=== PATIENT | female | born 2000 | race African-American/Black ===

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

== ENCOUNTER 2019-04-10 11:08 | Emergency (ER) | payer OTHER ==
--- NOTE | 2019-04-10 12:23 | PDOC ---
History of Present Illness <José Luis Green - Last Filed: 04/10/19 17:33> - General History Source: Care Provider Exam Limitations: Other (Baseline MR) - History of Present Illness Initial Comments: 04/10/19 12:28 18 year old female with PMH developmental delay, hydrocephalus with FOLEY ARTIST shunt brought to ED by [facility] care providers for check of FOLEY ARTIST shunt after patient repeatedly hit her head on a toilet paper lopez. Pt has a history of aggressive and self-harming behavior. Care providers denied vomiting, denied LOC , stated that pt is at her baseline with no AMS. Pt is unable to provide history. <Vanessa Morris - Last Filed: 04/10/19 23:28> - General Stated Complaint: SELF INJURY,SHUNT REPLACEMENT Time Seen by Provider: 04/10/19 12:23 Past History <José Luis Green - Last Filed: 04/10/19 17:33> - Past Medical History COPD: No DVT: No Psychiatric Problems: Yes (ADHD, aggression) - Immunization History Immunization Up to Date: Yes - Suicide/Smoking/Psychosocial Hx Smoking History: Never smoked Have you smoked in the past 12 months: No Hx Alcohol Use: No Drug/Substance Use Hx: No Substance Use Type: None <Vanessa Morris - Last Filed: 04/10/19 23:28> - Past Medical History Allergies/Adverse Reactions: Allergies Allergy/AdvReac Type Severity Reaction Status Date / Time No Known Allergies Allergy Verified 10/08/18 05:05 Home Medications: Ambulatory Orders Acetaminophen 650 mg PO QID 08/19/18 Bisacodyl 20 mg PO ASDIR 08/19/18 Chlorpromazine [Thorazine -] 50 mg PO BID 08/19/18 Chlorpromazine [Thorazine -] 100 mg PO QID 08/19/18 Clozapine [Clozaril -] 50 mg PO DAILY 08/19/18 Haloperidol [Haldol -] 10 mg PO BID 08/19/18 Ibuprofen 200 mg PO ASDIR 08/19/18 Loperamide HCl [Imodium -] 2 mg PO Q8H 08/19/18 Wheat Dextrin [Benefiber] 1 each PO DAILY 08/19/18 Review of Systems - Review of Systems Able to Perform ROS?: No (Pt has baseline MR) <Vanessa Morris - Last Filed: 04/10/19 23:28> *Physical Exam - Vital Signs Last Vital Signs Temp Pulse Resp BP Pulse Ox 97 F L 114 H 16 144/106 H 100 04/10/19 12:29 04/10/19 15:40 04/10/19 15:40 04/10/19 15:40 04/10/19 15:40 <José Luis Green - Last Filed: 04/10/19 17:33> - Physical Exam Comments: 04/10/19 12:30 Constitutional: Well-nourished, Well-developed, appearing stated age. HEENT: head is normocephalic, atraumatic. EOMI. PERRLA. no scalp hematomas. no ashraf sign. no raccoon eyes. Neck: supple. Full ROM. Heart: regular rhythm. no murmurs, rubs or gallops. Lungs: clear to auscultation bilaterally. no crackles, rhonchi or wheezing. no stridor. Abdomen: soft, nontender. normal bowel sounds. no rebound, guarding, masses. Extremities: peripheral pulses intact. no lower extremity edema. Neurological: CN 2-12 grossly intact. moves all four extremities. Psych: awake, alert. follows commands. <Vanessa Morris - Last Filed: 04/10/19 23:28> ED Treatment Course - LABORATORY CBC & Chemistry Diagram: 04/10/19 13:40 04/10/19 13:40 - ADDITIONAL ORDERS Additional order review: Laboratory Results 04/10/19 04/10/19 04/10/19 13:40 13:40 13:40 PT with INR 11.10 INR 0.94 PTT (Actin FS) 36.2 Sodium 140 Potassium 3.9 Chloride 110 H Carbon Dioxide 22 Anion Gap 8 BUN 9 Creatinine 0.6 Est GFR (CKD-EPI)AfAm 153.15 Est GFR (CKD-EPI)NonAf 132.14 Random Glucose 90 Calcium 9.4 Total Bilirubin 0.2 AST 18 ALT 53 Alkaline Phosphatase 113 Total Protein 7.2 Albumin 3.6 Blood Type O POSITIVE Antibody Screen Negative 04/10/19 13:40 PT with INR INR PTT (Actin FS) Cancelled Sodium Potassium Chloride Carbon Dioxide Anion Gap BUN Creatinine Est GFR (CKD-EPI)AfAm Est GFR (CKD-EPI)NonAf Random Glucose Calcium Total Bilirubin AST ALT Alkaline Phosphatase Total Protein Albumin Blood Type Antibody Screen 04/10/19 13:40 RBC 4.65 MCV 82.0 MCHC 32.8 RDW 17.0 H MPV 7.1 L Neutrophils % 52.7 Lymphocytes % 34.2 Monocytes % 12.5 H Eosinophils % 0.1 Basophils % 0.5 - Medications Given in the ED: ED Medications Discontinued Medications Generic Name Dose Route Start Last Admin Trade Name Freq PRN Reason Stop Dose Admin Sodium Chloride 500 mls @ 500 mls/hr 04/10/19 15:02 04/10/19 15:15 Normal Saline - IV 04/10/19 16:01 500 mls/hr ASDIR STA Administration Ketamine HCl 300 mg 04/10/19 13:48 04/10/19 13:59 Ketalar - IM 04/10/19 13:49 300 mg ONCE ONE Administration Ondansetron HCl 4 mg 04/10/19 15:03 04/10/19 15:15 Zofran Injection IVPUSH 04/10/19 15:04 4 mg ONCE ONE Administration <José Luis Green - Last Filed: 04/10/19 17:33> - LABORATORY CBC & Chemistry Diagram: 04/10/19 13:40 04/10/19 13:40 <Vanessa Morris - Last Filed: 04/10/19 23:28> Medical Decision Making - Medical Decision Making 04/10/19 12:30 18 year old female with above PMH presented to ED for FOLEY ARTIST shunt check after hitting her head on the toilet paper lopez. Initial Vital Signs Temp Pulse Resp BP Pulse Ox 97 F L 116 H 20 136/83 97 04/10/19 12:29 04/10/19 12:29 04/10/19 12:29 04/10/19 12:29 04/10/19 12:29 Labs ordered: none Imaging ordered: CT head noncontrast, CXR, neck soft tissue XR Medications ordered: none 04/10/19 13:34 CT head report: shunt in place. moderate left subdural with mixed density, small amount of acute component. mild right shift. Dr. Hurst, neurosurgery paged. CXR: FOLEY ARTIST shunt in place. Neck XR: FOLEY ARTIST shunt in place. Labs ordered: CBC, CMP, coags, T/S EKG ordered. 04/10/19 13:[address] Hurst. He stated he will come to evaluate the patient. Pending labs and admission. 04/10/19 13:57 Pt is becoming agitated, aggressive towards staff. Medication ordered: Ketamine 300 mg IM Continuous cardiac monitoring placed. 04/10/19 14:44 Dr. Hurst has evaluated patient, recommends transfer for FOLEY ARTIST shunt change. He stated that pt has overdrainage from FOLEY ARTIST shunt, which has placed her at an increased risk of subdural hematoma. Subdural appears acute on chronic. Dr. Hurst recommends transfer to [facility] where pt has received prior surgery. Pt has had 6 prior surgeries, which have had multiple complications. Pt needs tertiary care center. Dr. Hurst has paged Dr. Axel Richard [phone] EKG performed at 1427: rate 125, regular rhythm, normal axis, normal intervals, no acute ST changes. Medications ordered: normal saline bolus 500 cc 04/10/19 15:07 Pt is now vomiting. Mediations ordered: Zofran 4 mg IV once Pt has vomited with Ketamine use prior. CBC WBC 6.0 K/mm3 (4.0-10.0) 04/10/19 13:40 RBC 4.65 M/mm3 (3.60-5.2) 04/10/19 13:40 Hgb 12.5 GM/dL (10.7-15.3) 04/10/19 13:40 Hct 38.1 % (32.4-45.2) 04/10/19 13:40 MCV 82.0 fl (80-96) 04/10/19 13:40 MCH 26.9 pg (25.7-33.7) 04/10/19 13:40 MCHC 32.8 g/dl (32.0-36.0) 04/10/19 13:40 RDW 17.0 % (11.6-15.6) H 04/10/19 13:40 Plt Count 375 K/MM3 (134-434) 04/10/19 13:40 MPV 7.1 fl (7.5-11.1) L 04/10/19 13:40 Absolute Neuts (auto) 3.2 K/mm3 (1.5-8.0) 04/10/19 13:40 Neutrophils % 52.7 % (42.8-82.8) 04/10/19 13:40 Lymphocytes % 34.2 % (8-40) 04/10/19 13:40 Monocytes % 12.5 % (3.8-10.2) H 04/10/19 13:40 Eosinophils % 0.1 % (0-4.5) 04/10/19 13:40 Basophils % 0.5 % (0-2.0) 04/10/19 13:40 Nucleated RBC % 0 % (0-0) 04/10/19 13:40 CMP Sodium 140 mmol/L (136-145) 04/10/19 13:40 Potassium 3.9 mmol/L (3.5-5.1) 04/10/19 13:40 Chloride 110 mmol/L (98-107) H 04/10/19 13:40 Carbon Dioxide 22 mmol/L (21-32) 04/10/19 13:40 Anion Gap 8 MMOL/L (8-16) 04/10/19 13:40 BUN 9 mg/dL (7-18) 04/10/19 13:40 Creatinine 0.6 mg/dL (0.55-1.3) 04/10/19 13:40 Est GFR (CKD-EPI)AfAm 153.15 04/10/19 13:40 Est GFR (CKD-EPI)NonAf 132.14 04/10/19 13:40 Random Glucose 90 mg/dL (74-106) 04/10/19 13:40 Calcium 9.4 mg/dL (8.5-10.1) 04/10/19 13:40 Total Bilirubin 0.2 mg/dL (0.2-1) 04/10/19 13:40 AST 18 U/L (15-37) 04/10/19 13:40 ALT 53 U/L (13-61) 04/10/19 13:40 Alkaline Phosphatase 113 U/L (45-117) 04/10/19 13:40 Total Protein 7.2 g/dl (6.4-8.2) 04/10/19 13:40 Albumin 3.6 g/dl (3.4-5.0) 04/10/19 13:40 INR, PTT INR 0.94 (0.83-1.09) 04/10/19 13:40 04/10/19 17:10 Dr. Axel Richard denied transfer, stating pt is no longer a minor, and needs adult neurosurgeon. He denied acceptance. Dr. Salomon, adult neuro surgeon, denied transfer, stating he does not believe pt needs transfer. He denied acceptance. [facility] paged. 04/10/19 17:36 Dr. Stokes accepted transfer. Pt to be transferred to [facility]. Pending transfer. <Vanessa Morris - Last Filed: 04/10/19 23:28> *DC/Admit/Observation/Transfer - Transfer to Acute Care Facility Receiving Facility: [facility]. Accepting Physician:: Dr. Stokes <José Luis Green - Last Filed: 04/10/19 17:33> <Vanessa Morris - Last Filed: 04/10/19 23:28> Diagnosis at time of Disposition: Subdural hematoma - Discharge Dispostion Disposition: TRANSFER ACUTE CARE/OTHER HOSP Condition at time of disposition: Stable - Referrals Referrals: Mary Romano MD [Primary Care Provider] - - Patient Instructions - Post Discharge Activity
[2019-04-10 12:44] VITALS: BMI 26.6
--- NOTE | 2019-04-10 12:47 | PDOC ---
Attending Attestation - Resident Resident Name: Vanessa Morris - ED Attending Attestation I have performed the following: I have examined & evaluated the patient, The case was reviewed & discussed with the resident, I agree w/resident's findings & plan, Exceptions are as noted - HPI HPI: 04/10/19 12:47 18y F hx of developmental delay, hydrocephalus with SALESPERSON YARD GOODS shunt, hx of selfinjurious behavior brought to the ED due to hitting her head on a toilet paper lopez. No LOC, n/v. Pt at baseline mental status. ROS limited due to her baseline metnal status - Physicial Exam PE: 04/10/19 14:58 GENERAL: The patient is awake, alert, no apparent distress, occasoinally screams out (baseline per aides) HEAD: Normocephalic, mild edema on posterior rear occiput on right, EYES: extraocular movements intact, sclera anicteric, conjunctiva clear, pupils symmetrcic ENT: Normal voice, Moist mucous membranes. NECK: Normal range of motion, supple LUNGS: Breath sounds equal, clear to auscultation bilaterally. No wheezes, no rhonchi, no rales. HEART: slightly tachycardic ABDOMEN: Soft, nontender, No guarding, no rebound. No CVA tenderness EXTREMITIES: Normal range of motion, no edema. NEUROLOGICAL: No facial assymetry, moving all 4 extremitieis spontaneously and symmetrically PSYCH: Normal mood, normal affect. SKIN: Warm, Dry, normal turgor, - Critical Care Time Total Critical Care Time: 35 Critical Care Statement: The care of this patient involved high complexity decision making to prevent further life threatening deterioration of the patient 's condition and/or to evaluate & treat vital organ system(s) failure or risk of failure. - Medical Decision Making 04/10/19 13:41 ct concerning for acute on chronic SDH dr. Aris gordon will obtain blood work will need to sedate pt with some ketamine as pt is otherwise agitated and interfering with her care 04/10/19 14:[address] Hurst - suspect possible overdrainage --> sdh will likely need evacuation of SDh and adjustment of SALESPERSON YARD GOODS shunt pts NS is at [facility] will page her NS there anticipate transfer pt had one episode of vomiting after ketamine - given zofran 04/10/19 16:57 Discussed with NS (Dr. Niels Cuba) at [facility] - declines to accept the pt - Dr. Hurst notes pt has a complex history and will likely need drainage of SDH and revision of shunt with specialized adjustable shunt that we do have here and do not have the appropriate facilities to take care of her post op care - recommends calling neurosurgery at [facility] 04/10/19 17:13 The patient was seen and examined to determine medical stability. The patient is MEDICALLY STABLE at this time. Labs, EKG, radiological studies were ordered to expedite the patient's care. I certify that I have discussed with the patient and/or his loan representative the following risks and benefits of the proposed transfer. Risks include worsening of patients condition during transport,auto accident, or permanent disability. Benefits include receiving specialized care not available at this facility. I certify that, based on the information available at this time, the medical benefits reasonably expected from the provision of appropriate medical treatment at the receiving facility outweigh the increased risk to the patient. I believe the patient/relative/guardian understands what I have explained and answered. The patient will be transferred to the service of Dr. Stokes at [facility]
[2019-04-10] MEDS ORDERED: KETAMINE HCL 500 MG/10 ML VIAL IM ONE (13:48)
[2019-04-10] MEDS ORDERED: KETAMINE HCL 500 MG/10 ML VIAL ONE (13:52)
[2019-04-10 14:34] LABS: BASO % 0.5 % (0-2.0); EOS % 0.1 % (0-4.5); HEMATOCRIT 38.1 % (32.4-45.2); HEMOGLOBIN 12.5 GM/dL (10.7-15.3); LYMPH % 34.2 % (8-40); MCH 26.9 pg (25.7-33.7); MCHC 32.8 g/dl (32.0-36.0); MEAN PLT VOLUME 7.1 fl (7.5-11.1); MONO % 12.5 % (3.8-10.2); NEUT % 52.7 % (42.8-82.8); PLATELET COUNT 375 K/MM3 (134-434); RBC 4.65 M/mm3 (3.60-5.2)
--- NOTE | 2019-04-10 14:50 | PN ---
Progress Note (short form) - Note Progress Note: NEUROSURGERY CONSUL DICTATED Chart reviewed Pt examined CT's reviewed s/p reported violent movement and hit head on L side PE: AD, VSS HEENT- R sided scalp scars healed; L parietal FERMENTATION ENGINEER sunt; neck- supple; Cor- RR; Lungs- CTA B; Abd- benign; Ext- no sign of trauma Speaking, periodically agitated, following simple commands CN- eyes open, PERRL, face symmetric; Motor- B UE/LE at least 4/5; Sensation- grossly intact LT; DTR- 2+ Labs- pending Head CT- L fronto-parietal subacute on chronic SDH 1.3-1.4 cm diameter with mass effect and 3 mm L to R shift Head CT ()- R frontal and R parietal shunt catheters with more dilated L atrium L parietal VPS with L FP subacute on chronic SDH with mass effect and mild midline shift Possible shunt overdrainage Recommend shunt revision to possibly programmable valve to reduce overdrainage SDH likely need to be evacuated Given relatively recent shunt revision and complex history of shunt malfunction as well as difficulty of postop care, recommend transfer back to Dr. Luis F Huerta, treating pediatric neurosurgeon,at [facility] Spoke to practice PHYSICIAN/ALLERGY/IMMUNOLOGY Transport reportedly being dispatched
[2019-04-10 14:56] LABS: ALBUMIN 3.6 g/dl (3.4-5.0); BILIRUBIN,TOTAL 0.2 mg/dL (0.2-1); CALCIUM 9.4 mg/dL (8.5-10.1); CREATININE 0.6 mg/dL (0.55-1.3); POTASSIUM 3.9 mmol/L (3.5-5.1); TOT PROT 7.2 g/dl (6.4-8.2)
[2019-04-10 15:00] LABS: INR 0.94 (0.83-1.09); PROTHROMBIN TIME (PATIENT) 11.1 SEC (9.7-13.0)
[2019-04-10] MEDS ORDERED: SODIUM CHLORIDE 500 ML IV STA ×2 (15:02→17:37)
[2019-04-10 15:03] LABS: ACTIVATED PTT 36.2 SECONDS (25.2-36.5)
[2019-04-10] MEDS ORDERED: ONDANSETRON 4 MG/2 ML VIAL IVPUSH ONE (15:03)
[2019-04-10] MEDS ORDERED: ONDANSETRON 4 MG/2 ML VIAL ONE (15:04)
--- NOTE | 2019-04-10 15:53 | CONS ---
DATE OF CONSULTATION: 04/10/2019 REQUESTING PHYSICIAN: José Luis Green MD POLICE GUARD: Cash Hurst MD, Neurosurgery CHIEF COMPLAINT: Left-sided subdural with history of left parietal PUBLIC IMPROVEMENT INSPECTOR shunt. HISTORY OF PRESENT ILLNESS: Patient is a 18-year-old, right-handed female with a history of developmental delay, hydrocephalus status post multiple PUBLIC IMPROVEMENT INSPECTOR shunts and PUBLIC IMPROVEMENT INSPECTOR shunt revision, most recently 6 months ago, who has frequent emotional outbursts and hits her head on different objects. Today, she hit her head on a toilet paper lopez. She did not lose consciousness. She did not complain of headache and has no nausea or vomiting. There are no seizure activities. The patient did not have any recent seizure activity nor any fevers or chills. Because of her agitation, she received some sedation to have her blood drawn. The patient's core checker from the [facility] denies any recent illnesses. PAST MEDICAL HISTORY: Seizure disorder, developmental delay. MEDICATIONS: Unknown. ALLERGIES: There are no known drug allergies. FAMILY HISTORY: Noncontributory. SOCIAL HISTORY: She lives in a developmental delay children's home. She does not smoke or drink. REVIEW OF SYSTEMS: Otherwise negative for major constitutional, head and neck, cardiovascular, pulmonary, gastrointestinal, genitourinary, endocrinological, neurological, and psychological problems except for the above. PHYSICAL EXAMINATION: Vital Signs: Temperature is 97. Blood pressure is 141/72 with pulse rate of 175. O2 saturation is 100% on 50% face mask. This is improved after the sedation wore off. She is 97% on room air. HEENT: Examination shows a right-sided frontal and parietal scar from the prior shunts. She also has a left-sided parietal incision where the shunt valve is easily palpable. There is no skin erosion. Neck: Supple. Coronary: Examination demonstrated regular rhythm. Lungs: Clear bilaterally. Abdomen: Benign. Extremities: Show no signs of DVT. Neurologic: She is now awake and alert. She is speaking. She follows simple commands. She is agitated at times. Cranial nerve examination shows her pupils to be equal and round. Extraocular movements appeared grossly intact. However, she did not cooperate fully. Face is symmetric. Motor examination shows at least 4/5 strength, bilateral upper and lower extremities. Sensory examination is grossly intact to light touch. Deep tendon reflexes are 2+. Cerebellar examination is difficult to perform. LABORATORY: Examination shows sodium to be 140 and potassium to be 3.9. BUN is 9 and creatinine 0.6. White blood cell count is 6.0, and hemoglobin is 12.5. Platelet count is 375,000. INR and PT are pending. CT scan of the head demonstrated left-sided frontoparietal, euytlnac-qs-aieomqf subdural hematoma of maximal diameter at approximately 1.3 cm. There is about 3-mm brre-as-nkvaw shift. There is a left-sided parietal ventriculoperitoneal shunt. A prior CT scan from July 2018 was reviewed, at which time there was right-sided frontal and right-sided parietal subarachnoid, ventriculoperitoneal shunt in place. Left-sided ventricle was more dilated at that time. IMPRESSION: 1. Left frontoparietal gxoirfeh-po-dwgkxor subdural hematoma with mass effect and mild midline shift. 2. Possible shunt overdrainage. 3. History of multiple shunt revisions. 4. History of developmental delay. RECOMMENDATIONS: The patient presents with head trauma today. She had fallen to the ground and had regained her baseline neurological function by report. She did not have any seizure activity. CT scan of the head demonstrated a left-sided subacute/chronic subdural hematoma with mild mass effect and midline shift. Given the presence of shunt, the shunt drainage pressure will likely need to be revised if possible. It does not appear that patient has a programmable valve. The subdural hematoma is also sufficiently large which may require drainage. Given her complex shunt revision history as well as the patient's behavioral and physical issues, the patient has been taken care of by the [facility] where she was operated on multiple times. I did speak to the patient's pediatric neurosurgeon's office. This is Dr. Luis F Richard. Arrangements will be made for the patient's transfer. CASH HURST M.D. [id number]
[2019-04-10 20:03] VITALS: BP 137/94; PULSE 128; TEMP 98.4
--- NOTE | 2019-04-11 14:47 | EKG ---
Test Reason : Blood Pressure : / mmHG Vent. Rate : 125 BPM Atrial Rate : 125 BPM P-R Int : 132 ms QRS Dur : 078 ms QT Int : 320 ms P-R-T Axes : 016 012 -01 degrees QTc Int : 461 ms SINUS TACHYCARDIA OTHERWISE NORMAL ECG NO PREVIOUS ECGS AVAILABLE Confirmed by CLIFF HERNANDEZ MD ([id number]) on 04/11/2019 2:46:57 PM Referred By: Confirmed By:CLIFF HERNANDEZ MD
== END 2019-04-10 18:00 | disposition short-term general hospital (02) ==
LOC: JER 11:08
PROC: 3E023BZ Introduction of Anesthetic Agent into Muscle, Percutaneous Approach (ICD-10-PCS; principal; 2019-04-10)
PROC: 3E0337Z Introduction of Electrolytic and Water Balance Substance into Peripheral Vein, Percutaneous Approach (ICD-10-PCS; 2019-04-10)
PROC: 3E033GC Introduction of Other Therapeutic Substance into Peripheral Vein, Percutaneous Approach (ICD-10-PCS; 2019-04-10)
DX: S06.5X9A Traumatic subdural hemorrhage with loss of consciousness of unspecified duration, initial encounter (principal); W22.8XXA Striking against or struck by other objects, initial encounter; Y93.89 Activity, other specified; Y92.198 Other place in other specified residential institution as the place of occurrence of the external cause; Y99.8 Other external cause status; F90.9 Attention-deficit hyperactivity disorder, unspecified type; F79 Unspecified intellectual disabilities; F91.1 Conduct disorder, childhood-onset type; Z91.5 Personal history of self-harm; Z98.2 Presence of cerebrospinal fluid drainage device
CPT/HCPCS: 36415; 70360-TC-FY; 70450-TC; 71045-TC-FY; 80053; 85025; 85610; 85730; 86850; 86900; 86901; 93005; 93010; 99285-25; J7030

== ENCOUNTER 2020-06-25 20:20 | Inpatient (IN) | payer OTHER ==
[2020-06-25] MEDS ORDERED: methylPREDNISolone NA SUCC 125 MG/2 ML VIAL IVPUSH ONE (20:48)
[2020-06-25] MEDS ORDERED: LORazepam 2 MG/ML SDV VIAL ONE ×2 (20:49→22:15)
--- NOTE | 2020-06-25 21:06 | PDOC ---
History of Present Illness - General Chief Complaint: Shortness of Breath Stated Complaint: DIFF. 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 EMS checked vs: T98.1 RR24, 02 sat 85% room air. Patient was put on 3L NC and was treated with combivent x 1. In ED patient was sitting comfortably, NAD. She is unable to verbalize her hx but able to answer questions with yes/no. Hx was obtained from her childcare aide and EMS, reports that patient had an episode of wheezing about 30 min ago, which seemed to resolve with the treatment from the ambulance. V/S in ED: P126, RR 24 O2 sat 99% RA, BP 136/100 . 06/25/20 21:07 06/25/20 21:12 06/25/20 23:44 Past History - Medical History Allergies/Adverse Reactions: Allergies Allergy/AdvReac Type Severity Reaction Status Date / Time No Known Allergies Allergy Verified 06/25/20 20:52 Home Medications: Ambulatory Orders Acetaminophen 650 mg PO QID 08/19/18 Bisacodyl 20 mg PO ASDIR 08/19/18 Chlorpromazine [Thorazine -] 50 mg PO BID 08/19/18 Chlorpromazine [Thorazine -] 100 mg PO QID 08/19/18 Clozapine [Clozaril (Nf) -] 50 mg PO DAILY 08/19/18 Haloperidol [Haldol -] 10 mg PO BID 08/19/18 Ibuprofen 200 mg PO ASDIR 08/19/18 Loperamide HCl [Imodium -] 2 mg PO Q8H 08/19/18 Wheat Dextrin [Benefiber] 1 each PO DAILY 08/19/18 Asthma: Yes COPD: No DVT: No Psychiatric Problems: Yes (ADHD, aggression, developmental disorder) - Immunization History Immunization Up to Date: Yes - Psycho-Social/Smoking History Smoking History: Never smoked Have you smoked in the past 12 months: No Information on smoking cessation initiated: No - Substance Abuse Hx (Audit-C & DAST Scrn) How often the patient has a drink containing alcohol: Never Score: In Men: 4 or > Positive; In Women: 3 or > Positive: 0 Screen Result (Pos requires Nsg. Audit-10AR): Negative In the last yr the pt used illegal drug/Rx for NonMed reason: No Score: Yes response is considered Positive: 0 Screen Result (Positive result requires Nsg. DAST-10): Negative Review of Systems - Review of Systems Able to Perform ROS?: No (developmenta disorder) *Physical Exam - Vital Signs Last Vital Signs Temp Pulse Resp BP Pulse Ox 126 H 24 H 136/99 97 06/25/20 20:52 06/25/20 20:52 06/25/20 20:52 06/25/20 20:52 - Physical Exam General Appearance: Yes: Nourished. No: Apparent Distress HEENT: negative: Pharyngeal Erythema, Tonsillar Erythema, Nasal Congestion, Rhinorrhea, Excessive drooling Neck: positive: Supple. negative: Tender, Rigid, Lymphadenopathy (R), Lymphadenopathy (L), Rigidity Respiratory/Chest: positive: Lungs Clear, Normal Breath Sounds, Rapid RR. n egative: Chest Tender, Respiratory Distress, Crackles, Rales, Rhonchi, Wheezing Cardiovascular: positive: Regular Rhythm, Regular Rate, S1, S2, Tachycardia. negative: Edema, JVD, Murmur Vascular Pulses: Carotid (R): 2+, Carotid (L): 2+, Dorsalis-Pedis (R): 2+, Doralis-Pedis (L): 2+ Gastrointestinal/Abdominal: positive: Normal Bowel Sounds, Soft. negative: Tender, Tenderness Extremity: positive: Normal Capillary Refill. negative: Calf Tenderness Integumentary: positive: Normal Color, Dry, Warm ED Treatment Course - LABORATORY CBC & Chemistry Diagram: 06/26/20 06:06 - RADIOLOGY Radiology Studies Ordered: Category Date Time Status CXRPORT [CHEST X-RAY PORTABLE*] [RAD] Stat Radiology 06/25/20 20:53 Ordered - Medications Given in the ED: ED Medications Discontinued Medications Generic Name Dose Route Start Last Admin Trade Name Freq PRN Reason Stop Dose Admin Lorazepam 2 mg 06/25/20 20:47 06/25/20 20:54 Ativan Injection - IM 06/25/20 20:48 2 mg ONCE ONE Administration Medical Decision Making - Medical Decision Making 06/25/20 21:15 19 F with a PMH of Asthma, developmental disorder, and Covid + in February, presented from [facility] with an episode of wheezing and difficulty breathing for 30m-1hr. #Asthma exacerbation vs Covid complications/Covid vs PE vs Bacterial pneumonia vs Acute Bronchitis - patient received combivent x 1 in the ambulance - she is currently stable with no audible wheezing and O2 sat @ 99% in RA - CXR- Left pleural effusion and basilar atelectasis - CBC, CMP - Covid testing - Isolation precaution - Ativan 2mg - Solumedrol 125mg IV - Doxycycline 100mg po - Dispo: admit 06/25/20 21:22 06/25/20 21:22 06/25/20 21:41 06/26/20 01:05 Discharge - Discharge Information Problems reviewed: Yes Clinical Impression/Diagnosis: SOB (shortness of breath), Pneumonia, Asthma exacerbation Condition: Stable - Follow up/Referral - Patient Discharge Instructions - Post Discharge Activity
--- NOTE | 2020-06-25 21:18 | PDOC ---
Documentation entered by Rory Fallon SCRIBE, acting as scribe for Frannie Ferguson MD. Frannie Ferguson MD: This documentation has been prepared by the Leeanne carranza Xhesika, SCRIBE, under my direction and personally reviewed by me in its entirety. I confirm that the documentation accurately reflects all work, treatment, procedures, and medical decision making performed by me. 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 has had wheezing/ asthma in the past. also was positive for covid in february 2020. Per EMS, patient was noted to be wheezing by staff. En route to the ED pt was 85% on RA and was given treatment with minimal relief. now per staff at the bedside, pt is somewhat improved. oxygen saturation currently on RA on arrival is 99%. no f/c no n/v no change to behavior. pt is nonverbal, history per nursing facility staff and EMS. Allergies: NKDA 06/25/20 21:15 - Physicial Exam PE: 06/25/20 21:16 awake alert lungs no wheezing. normal effort. oxygen saturation 99% RA. heart reg tachycardia. no mrg abd soft obese, nt. ext wwp. no edema. no swelling. - Medical Decision Making 06/25/20 21:16 19 yo F h/o autism, adhd behavioral disturbance, in detention, h/o covid here with wheezing hypoxia. resolved with meds/ nebs. plan xray r/o pna, basic labs. will given steroids. pt given ativan to help with anxiolysis for evaluation. given duoneb, steroids. cxr. Heart Score/ECG Review #1 General ECG Interpretation: Sinus Rhythm, Normal Intervals, No acute ischemic changes Compared to previous ECG there are: Other (sinus tachycardia. no st elevation or depression) Discharge - Discharge Information Problems reviewed: Yes Clinical Impression/Diagnosis: SOB (shortness of breath), Pneumonia, Asthma exacerbation Condition: Stable - Admission Yes - Follow up/Referral - Patient Discharge Instructions - Post Discharge Activity
[2020-06-25] MEDS ORDERED: HALOPERIDOL LACTATE 5 MG/ML IM ONE (21:32)
[2020-06-25] MEDS ORDERED: HALOPERIDOL LACTATE 5 MG/ML ONE (21:33)
[2020-06-25] MEDS ORDERED: predniSONE 20 MG TABLET (UD) PO ONE (22:27)
[2020-06-25] MEDS ORDERED: predniSONE 20 MG TABLET (UD) ONE (22:34)
[2020-06-25] MEDS ORDERED: ALBUTEROL SO4 HFA INHALER IH ONE ×2 (23:42→23:54)
[2020-06-26] MEDS ORDERED: DOXYCYCLINE HYCLATE 100 MG CAPSULE PO ONE ×2 (00:57→02:42)
--- NOTE | 2020-06-26 01:54 | HP ---
CHIEF COMPLAINT: Difficulty Breathing, Wheezing PCP: Not on staff HISTORY OF PRESENT ILLNESS: This is a 19 y/o female from [facility] with a PMHx of Autism, ADHD, Developmental Disorder, Covid +(02/2020), s/p MONOGRAM AND LETTER PASTER Shunt. Who presents to the ED for wheezing and difficulty breathing. Per ED records: Per EMS patient was noted to be wheezing by staff. En route patient's spo2 85% RA, was given a treatment with minimal relief. On arrival to the ED spo2 99% RA. Patient unable to provide HPI due to non-verbal and developmental disorder. ER course was notable for: (1) Chest Xray image, report- moderate pleural effusion with consolidation/atelectasis of the left lower lobe (2) WBC 13.4 (3) Recent Travel: None PAST MEDICAL HISTORY: See HPI PAST SURGICAL HISTORY: See HPI Social History: Smoking: Unknown Alcohol: Unknown Drugs: Unknown Resides in a [facility] Allergies No Known Allergies Allergy (Verified 06/25/20 20:52) HOME MEDICATIONS: Home Medications Medication Instructions Recorded Acetaminophen 650 mg PO QID 08/19/18 Bisacodyl 20 mg PO ASDIR 08/19/18 Chlorpromazine [Thorazine -] 50 mg PO BID 08/19/18 Chlorpromazine [Thorazine -] 100 mg PO QID 08/19/18 Clozapine [Clozaril (Nf) -] 50 mg PO DAILY 08/19/18 Haloperidol [Haldol -] 10 mg PO BID 08/19/18 Ibuprofen 200 mg PO ASDIR 08/19/18 Loperamide HCl [Imodium -] 2 mg PO Q8H 08/19/18 Wheat Dextrin [Benefiber] 1 each PO DAILY 08/19/18 REVIEW OF SYSTEMS Unable to Obtain- Clinical Condition CONSTITUTIONAL: Absent: fever, chills, diaphoresis, generalized weakness, malaise, loss of appetite, weight change HEENT: Absent: rhinorrhea, nasal congestion, throat pain, throat swelling, difficulty swallowing, mouth swelling, ear pain, eye pain, visual changes CARDIOVASCULAR: Absent: chest pain, syncope, palpitations, irregular heart rate, lightheadedness, peripheral edema RESPIRATORY: Absent: cough, shortness of breath, dyspnea with exertion, orthopnea, wheezing, stridor, hemoptysis GASTROINTESTINAL: Absent: abdominal pain, abdominal distension, nausea, vomiting, diarrhea, constipation, melena, hematochezia GENITOURINARY: Absent: dysuria, frequency, urgency, hesitancy, hematuria, flank pain, genital pain MUSCULOSKELETAL: Absent: myalgia, arthralgia, joint swelling, back pain, neck pain SKIN: Absent: rash, itching, pallor HEMATOLOGIC/IMMUNOLOGIC: Absent: easy bleeding, easy bruising, lymphadenopathy, frequent infections ENDOCRINE: Absent: unexplained weight gain, unexplained weight loss, heat intolerance, cold intolerance NEUROLOGIC: Absent: headache, focal weakness or paresthesias, dizziness, unsteady gait, seizure, mental status changes, bladder or bowel incontinence PSYCHIATRIC: Absent: anxiety, depression, suicidal or homicidal ideation, hallucinations. PHYSICAL EXAMINATION Vital Signs - 24 hr 06/25/20 06/25/20 20:52 21:42 Temperature 98.3 F Pulse Rate 126 H Respiratory 24 H 21 H Rate Blood Pressure 136/99 O2 Sat by Pulse 97 100 Oximetry (%) GENERAL: Lethargic but arousable in no acute distress. (post medication) HEAD: Normal with no signs of trauma. EYES: Pupils equal, round and reactive to light, extraocular movements intact, sclera anicteric, conjunctiva clear. No lid lag. (unable to assess- pt. is blind) EARS, NOSE, THROAT: Ears normal, nares patent, oropharynx clear without exudates. Moist mucous membranes. NECK: Normal range of motion, supple without lymphadenopathy, JVD, or masses. LUNGS: Breath sounds diminished to L-lobes. Clear to R- lobes No wheezes, and no crackles. No accessory muscle use. HEART: Regular rate and rhythm, normal S1 and S2 without murmur, rub or gallop. ABDOMEN: Soft, nontender, not distended, normoactive bowel sounds, no guarding, no rebound, no masses. No hepatomegaly or splenomegaly. MUSCULOSKELETAL: Normal range of motion at all joints. No bony deformities or tenderness. No CVA tenderness. UPPER EXTREMITIES: 2+ pulses, warm, well-perfused. No cyanosis. No clubbing. No peripheral edema. LOWER EXTREMITIES: 2+ pulses, warm, well-perfused. No calf tenderness. No peripheral edema. NEUROLOGICAL: Cranial nerves II-XII intact. Non-verbal- at baseline. Gait not observed. PSYCHIATRIC: Lethargic SKIN: Warm, dry, normal turgor, no rashes or lesions noted, normal capillary refill. Laboratory Results - last 24 hr 06/26/20 06/26/20 06:06 06:28 WBC 13.4 H RBC 5.53 H Hgb 15.7 H Hct 48.1 H D MCV 86.9 MCH 28.5 MCHC 32.7 RDW 13.4 Plt Count 322 D MPV 8.7 D Absolute Neuts (auto) 12.0 H Neutrophils % 89.5 H D Lymphocytes % 8.9 D Monocytes % 1.1 L D Eosinophils % 0.3 D Basophils % 0.2 Nucleated RBC % 0 Sodium 141 Potassium 4.2 Chloride 109 H Carbon Dioxide 23 Anion Gap 9 BUN 6.2 L Creatinine 1.1 Est GFR (CKD-EPI)AfAm 83.70 Est GFR (CKD-EPI)NonAf 72.22 Random Glucose 109 H Calcium 10.2 H Total Bilirubin 0.2 AST 15 ALT 25 Alkaline Phosphatase 104 Total Protein 8.6 H Albumin 3.9 Intake & Output 06/23/20 06/24/20 06/25/20 06/26/20 23:59 23:59 23:59 23:59 Weight 72.575 kg ASSESSMENT/PLAN: This is a 19 y/o female with a PMHx of Autism, ADHD, Developmental Disord er,Asthma, s/p MONOGRAM AND LETTER PASTER Shunt, Blind, Covid + (02/2020). Admitted for Asthma Exacerbation, Acute Respiratory Failure with Hypoxia, Pneumonia for further evaluation of their emergent condition. Plan: See Problem List FEN Replete lytes prn NPO DVT ppx OOB SCDs Dispo: Requires Inpatient Care Family Medical History Family History: Unable to Obtain Problem List - Problem (1) Asthma exacerbation Assessment/Plan: Likely secondary due to Pneumonia Albuterol MDI Solumederol with taper Appreciate Pulmonology consults Chest Xray-reviewed Monitor CBC, CMP Monitor vitals O2 Code(s): J45.901 - UNSPECIFIED ASTHMA WITH (ACUTE) EXACERBATION (2) Pneumonia Assessment/Plan: Will treat for HCAP Chest xray- left pleural effusion and basilar atelectasis +Leukocytosis with neutrophilia Blood Cultures-pending Urine Legionella Zosyn for broad spectrum coverage Appreciate ID consult Monitor CBC, CMP Monitor vitals Tylenol prn Code(s): J18.9 - PNEUMONIA, UNSPECIFIED ORGANISM (3) Acute respiratory failure with hypoxia Assessment/Plan: Likely secondary to Pneumonia vs Pleural Effusion Chest Xray-reviewed Albuterol MDI O2 Appreciate Pulmonology consult Monitor vitals Code(s): J96.01 - ACUTE RESPIRATORY FAILURE WITH HYPOXIA (4) Suspected COVID-19 virus infection Assessment/Plan: 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 4, moderate risk Covid PCR-pending Isolation Precautions Monitor CBC, CMP, CRP, LDH, Mg Monitor vitals Appreciate ID consult O2 Code(s): Z20.828 - CONTACT W AND EXPOSURE TO OTH VIRAL COMMUNICABLE DISEASES (5) ADHD Assessment/Plan: continue home meds when verified Code(s): F90.9 - ATTENTION-DEFICIT HYPERACTIVITY DISORDER, UNSPECIFIED TYPE (6) Developmental disorder Assessment/Plan: continue home meds when verified Code(s): F89 - UNSPECIFIED DISORDER OF PSYCHOLOGICAL DEVELOPMENT (7) Behavioral disorder Assessment/Plan: Patient given Haldol, Ativan in ED secondary to agitation, combativeness with staff Continue home meds when verified Fall Precautions Code(s): SCJ2879 - Visit type - Emergency Visit Emergency Visit: Yes ED Registration Date: 06/25/20 Care time: The patient presented to the Emergency Department on the above date and was hospitalized for further evaluation of their emergent condition. - New Patient This patient is new to me today: Yes Date on this admission: 06/26/20 - Critical Care Critical Care patient: No
[2020-06-26] MEDS: ALBUTEROL SO4 HFA INHALER IH SCH ×6 (02:37→22:01)
[2020-06-26 06:33] LABS: BASO % 0.2 % (0-2.0); EOS % 0.3 % (0-4.5); HEMATOCRIT 48.1 % (32.4-45.2); HEMOGLOBIN 15.7 GM/dL (10.7-15.3); LYMPH % 8.9 % (8-40); MCH 28.5 pg (25.7-33.7); MCHC 32.7 g/dl (32.0-36.0); MEAN CELL VOLUME 86.9 fl (80-96); MEAN PLT VOLUME 8.7 fl (7.5-11.1); MONO % 1.1 % (3.8-10.2); NEUT % 89.5 % (42.8-82.8); PLATELET COUNT 322 K/MM3 (134-434); RBC 5.53 M/mm3 (3.60-5.2); RDW 13.4 % (11.6-15.6); WHITE BLOOD COUNT 13.4 K/mm3 (4.0-10.0)
[2020-06-26] MEDS ORDERED: PIPERACILLIN/TAZOB 3.375 GM 3.375 GM in DEXTROSE 5%-WATER - 50 ML IVPB ONE (07:47)
[2020-06-26 07:56] LABS: ALBUMIN 3.9 g/dl (3.4-5.0); BILIRUBIN,TOTAL 0.2 mg/dL (0.2-1); BLOOD UREA NITROGEN 6.2 mg/dL (7-18); CALCIUM 10.2 mg/dL (8.5-10.1); CREATININE 1.1 mg/dL (0.55-1.3); POTASSIUM 4.2 mmol/L (3.5-5.1); TOT PROT 8.6 g/dl (6.4-8.2)
[2020-06-26] MEDS ORDERED: DEXTROSE 5%-WATER - 50 ML IVPB ONE (08:25)
[2020-06-26] MEDS ORDERED: PIPERACILLIN/TAZOBACTAM 3.375 GM VIAL IVPB ONE (08:25)
[2020-06-26] MEDS ORDERED: LORazepam 1 MG TABLET PO ONE (10:57)
--- NOTE | 2020-06-26 12:02 | CON.PULM ---
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 Noted to be hypoxic initially by EMS. Pt unable to provide further history at this time. Per aide, pt has not been hospitalized for asthma. No fevers recorded. CXR showing left basilar infiltrate with effusion. - History Source History Provided By: Patient, Medical Record, Caregiver - Past Medical History Pulmonary: Yes: Asthma - Alcohol/Substance Use Hx Alcohol Use: No - Smoking History Smoking history: Never smoked Have you smoked in the past 12 months: No - Social History Usual Living Arrangement: Assisted Living Home Medications - Allergies Allergies/Adverse Reactions: Allergies Allergy/AdvReac Type Severity Reaction Status Date / Time No Known Allergies Allergy Verified 06/25/20 20:52 - Home Medications Home Medications: Ambulatory Orders Acetaminophen 650 mg PO QID 08/19/18 Bisacodyl 20 mg PO ASDIR 08/19/18 Chlorpromazine [Thorazine -] 50 mg PO BID 08/19/18 Chlorpromazine [Thorazine -] 100 mg PO QID 08/19/18 Clozapine [Clozaril (Nf) -] 50 mg PO DAILY 08/19/18 Haloperidol [Haldol -] 10 mg PO BID 08/19/18 Ibuprofen 200 mg PO ASDIR 08/19/18 Loperamide HCl [Imodium -] 2 mg PO Q8H 08/19/18 Wheat Dextrin [Benefiber] 1 each PO DAILY 08/19/18 Review of Systems - Review of Systems Constitutional: denies: Chills, Fever Eyes: denies: Recent Change in Vision HENT: denies: Nasal Congestion, Throat Pain Neck: denies: Stiffness, Tenderness Cardiovascular: reports: Shortness of Breath. denies: Chest Pain Respiratory: denies: Cough, Wheezing Gastrointestinal: denies: Abdominal Pain, Nausea, Vomiting Genitourinary: denies: Dysuria, Hematuria Neurological: denies: Dizziness, Headache Physical Exam Vital Sings: Vital Signs Temperature 98.2 F 06/26/20 08:17 Pulse Rate 138 H 06/26/20 08:17 Respiratory Rate 24 H 06/26/20 08:17 Blood Pressure 138/84 06/26/20 08:17 O2 Sat by Pulse Oximetry (%) 96 06/26/20 08:29 Constitutional: Yes: Mild Distress Eyes: Yes: Conjunctiva Clear, EOM Intact HENT: Yes: Atraumatic, Normocephalic Neck: Yes: Supple, Trachea Midline Cardiovascular: Yes: Tachycardia Respiratory: Yes: Diminished ...Clubbing: No Gastrointestinal: Yes: Normal Bowel Sounds, Soft. No: Tenderness Edema: No Neurological: Yes: Alert Labs: CBC, BMP 06/26/20 06:06 06/26/20 06:28 Imaging - Results Chest X-ray: Report Reviewed, Image Reviewed (LLL infiltrate/effusion) Assessment/Plan Pneumonia Sepsis Tachycardia Asthma Autism - IV antibiotics - f/u cultures - urine antigens - EKG - O2 to keep SpO2 >90% - DVT prophylaxis Thank you for this consult Christian Loredo MD
--- NOTE | 2020-06-26 12:29 | RAPID ---
Physical Examination Vital Signs: Vital Signs Temperature 98.2 F 06/26/20 08:17 Pulse Rate 138 H 06/26/20 08:17 Respiratory Rate 24 H 06/26/20 08:17 Blood Pressure 138/84 06/26/20 08:17 O2 Sat by Pulse Oximetry (%) 96 06/26/20 08:29 VITALS BP:108/63 MD:145+ O2:96 Rapid response called at 12:20 for reports of the patient banging her head against the bed railing. Patient MD recorded 145+. Patient was unable to have IV placement anesthesia paged stat for IV placement. Nurses are currently restraining patient from getting out of bed. Labs: CBC, BMP 06/26/20 06:06 06/26/20 06:28
[2020-06-26] MEDS ORDERED: HALOPERIDOL LACTATE 5 MG/ML IM ONE (12:32)
[2020-06-26] MEDS ORDERED: HALOPERIDOL LACTATE 5 MG/ML IM PRN ×2 (12:34→18:24)
--- NOTE | 2020-06-26 12:45 | PN ---
Teaching Attending Note Name of Resident: Will Farmer ATTENDING PHYSICIAN STATEMENT I saw and evaluated the patient. I reviewed the resident's note and discussed the case with the resident. I agree with the resident's findings and plan as documented. SUBJECTIVE: Minimally verbal, no complaints. Unable to participate meaningfully in medical interview. OBJECTIVE: Afebrile, Hemodynamically stable. Appears comfortable. Last Vital Signs Temp Pulse Resp BP Pulse Ox 98.2 F 138 H 24 H 138/84 96 06/26/20 08:17 06/26/20 08:17 06/26/20 08:17 06/26/20 08:17 06/26/20 08:29 HEENT - Atraumatic Heart- S1, S2, Tachy Lungs - decreased air entry LLZ Abdomen - high BMI, soft, non-tender. Bowel Sounds normal. Extremities - no edema, no calf tenderness. Neuro - Moving all 4 extremities. Laboratory Results - last 24 hr 06/26/20 06/26/20 06:06 06:28 WBC 13.4 H RBC 5.53 H Hgb 15.7 H Hct 48.1 H D MCV 86.9 MCH 28.5 MCHC 32.7 RDW 13.4 Plt Count 322 D MPV 8.7 D Absolute Neuts (auto) 12.0 H Neutrophils % 89.5 H D Lymphocytes % 8.9 D Monocytes % 1.1 L D Eosinophils % 0.3 D Basophils % 0.2 Nucleated RBC % 0 Sodium 141 Potassium 4.2 Chloride 109 H Carbon Dioxide 23 Anion Gap 9 BUN 6.2 L Creatinine 1.1 Est GFR (CKD-EPI)AfAm 83.70 Est GFR (CKD-EPI)NonAf 72.22 Random Glucose 109 H Calcium 10.2 H Total Bilirubin 0.2 AST 15 ALT 25 Alkaline Phosphatase 104 Total Protein 8.6 H Albumin 3.9 Current Medications Generic Name Dose Route Start Last Admin Trade Name Freq PRN Reason Stop Dose Admin Albuterol Sulfate 2 puff 06/26/20 01:15 06/26/20 08:43 Ventolin Hfa Inhaler - IH Not Given Q4H KENNY Haloperidol 5 mg 06/26/20 12:34 Haldol Injection (Fast Acting) - IM ONCE PRN AGITATION Piperacillin Sod/Tazobactam 50 mls @ 100 mls/hr 06/26/20 16:00 Sod 3.375 gm/ Dextrose IVPB 06/27/20 15:59 Q8H-IV KENNY Protocol Piperacillin Sod/Tazobactam 50 mls @ 100 mls/hr 06/26/20 10:00 Sod 3.375 gm/ Dextrose IVPB Q8H-IV KENNY Protocol Home Medications Medication Instructions Recorded Acetaminophen 650 mg PO QID 08/19/18 Bisacodyl 20 mg PO ASDIR 08/19/18 Chlorpromazine [Thorazine -] 50 mg PO BID 08/19/18 Chlorpromazine [Thorazine -] 100 mg PO QID 08/19/18 Clozapine [Clozaril (Nf) -] 50 mg PO DAILY 08/19/18 Haloperidol [Haldol -] 10 mg PO BID 08/19/18 Ibuprofen 200 mg PO ASDIR 08/19/18 Loperamide HCl [Imodium -] 2 mg PO Q8H 08/19/18 Wheat Dextrin [Benefiber] 1 each PO DAILY 08/19/18 ASSESSMENT AND PLAN: 19 year old female resident at 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 CXR - moderate pleural effusion with consolidation/atelectasis of the left lower lobe 1. Acute Hypoxic Respiratory Failure and Sepsis secondary to likely Pneumonia with parapneumonic effusion Needs IV line placed for IV fluids and IV Zosyn - ED apparently tried and unsuccessful so sent patient to medical floor yesterday evening without a line. She has remained without an IV line overnight. ED and anesthesia contacted for line placement. Will also discuss possible line placement with Jacquard Fixer. She is dehydrated and tachycardic, requires intensive IV hydration as well as IV Abx therapy. Pulm consulted given moderate L pleural effusion. Hx COVID 03/15, repeat COVID PCR pending. 2. Hx of Asthma - no evidence of Asthma exacerbation Received Solumedrol in ED No wheeze currently. Will give Ipratropium Neb prn (Will hold Albuterol neb for now given tachycardia) No need for ongoing steroid therapy. 3. History of Autism, ADHD, Developmental Disorder, Behavioral Disturbance Will resume all home meds including Chlorpromazine, Clozapine, Haldol. DVT Px - Lovenox SQ.
[2020-06-26] MEDS ORDERED: SODIUM CHLORIDE 1,000 ML IV STA ×2 (13:01→14:12)
[2020-06-26] MEDS ORDERED: IPRATROPIUM BR 0.02% 0.5 MG/2.5 ML VIAL.NEB. NEB PRN ×2 (13:02→18:24)
[2020-06-26] MEDS ORDERED: SODIUM CHLORIDE 1,000 ML IV SCH (13:15)
[2020-06-26] MEDS ORDERED: BISACODYL 10 MG SUPP.RECT RC PRN ×2 (13:30→18:24)
[2020-06-26] MEDS ORDERED: LACTOBACILLUS ACIDOPHILUS 1 TABLET PO SCH (13:30)
[2020-06-26] MEDS ORDERED: cloNIDine HCL 0.1 MG TABLET PO SCH (13:30)
[2020-06-26] MEDS ORDERED: chlorproMAZINE HCL 100 MG TABLET PO SCH (13:45)
[2020-06-26] MEDS ORDERED: CLOZAPINE 150 MG PO SCH (13:45)
[2020-06-26] MEDS ORDERED: LEVOTHYROXINE NA 100 MCG TABLET (FP) PO SCH (13:45)
[2020-06-26] MEDS ORDERED: PANTOPRAZOLE 40 MG TABLET PO SCH (13:45)
[2020-06-26] MEDS ORDERED: VALPROATE SODIUM 250 MG/5 ML UNIT DOSE CUP PO SCH (14:00)
[2020-06-26] MEDS: SODIUM CHLORIDE 1,000 ML IV STA ×2 (14:13→16:42)
--- NOTE | 2020-06-26 14:51 | PN ---
Physical Exam: SUBJECTIVE: Patient seen and examined MICHAEL. Arrived from ED to floor w/o IV access When questioned, pt denies cough, trouble breathing. Says "I'm fine", and "yes" alot. OBJECTIVE: Vital Signs Period Temp Pulse Resp BP Sys/Gaviria Pulse Ox Last 24 Hr 98.1 F-98.3 F 115-138 20-24 129-138/73-99 96-100 GENERAL: The patient is awake, alert, no acute distress. Obese. Avoids eye contact. Occasionally spontaneously agitated, shouting and jerking limbs HEAD: Normal with no signs of trauma. [employer] shunt palpated on occipital lobe EYES: sclera anicteric, conjunctiva clear and w/o pallor. ENT: oropharynx clear without exudates, moist mucous membranes. LUNGS: Breath sounds equal, with slightly less than normal respiratoyr effort, no wheezes, no crackles, no accessory muscle use. Breathing RA HEART: Regular rate and rhythm, S1, S2 without murmur, rub or gallop. ABDOMEN: Soft, nontender, nondistended, no guarding, no rebound. EXTREMITIES: 2+ pulses, warm, well-perfused, no edema. NEUROLOGICAL: speaks in one-word sentences or short phrases. Follows commands. SKIN: Warm, dry, normal turgor, no rashes or lesions noted Laboratory Results - last 24 hr 06/26/20 06/26/20 06:06 06:28 WBC 13.4 H RBC 5.53 H Hgb 15.7 H Hct 48.1 H D MCV 86.9 MCH 28.5 MCHC 32.7 RDW 13.4 Plt Count 322 D MPV 8.7 D Absolute Neuts (auto) 12.0 H Neutrophils % 89.5 H D Lymphocytes % 8.9 D Monocytes % 1.1 L D Eosinophils % 0.3 D Basophils % 0.2 Nucleated RBC % 0 Sodium 141 Potassium 4.2 Chloride 109 H Carbon Dioxide 23 Anion Gap 9 BUN 6.2 L Creatinine 1.1 Est GFR (CKD-EPI)AfAm 83.70 Est GFR (CKD-EPI)NonAf 72.22 Random Glucose 109 H Calcium 10.2 H Total Bilirubin 0.2 AST 15 ALT 25 Alkaline Phosphatase 104 Total Protein 8.6 H Albumin 3.9 Active Medications Generic Name Dose Route Start Last Admin Trade Name Freq PRN Reason Stop Dose Admin Albuterol Sulfate 2 puff 06/26/20 01:15 06/26/20 12:45 Ventolin Hfa Inhaler - IH Not Given Q4H [facility] Bisacodyl 10 mg 06/26/20 13:30 Dulcolax Suppository - RC HS PRN CONSTIPATION Chlorpromazine HCl 200 mg 06/26/20 13:45 Thorazine - PO DAILY [facility] Clonidine 0.1 mg 06/26/20 13:30 Catapres - PO BID [facility] Clozapine 100 mg/ Clozapine 50 150 mg 06/26/20 15:00 mg PO BID [facility] Ferrous Gluconate 648 mg 06/26/20 22:00 Fergon - PO BID [facility] Gabapentin 400 mg 06/26/20 14:00 Neurontin - PO QID [facility] Haloperidol 5 mg 06/26/20 12:34 Haldol Injection (Fast Acting) - IM ONCE PRN AGITATION Piperacillin Sod/Tazobactam 50 mls @ 100 mls/hr 06/26/20 16:00 Sod 3.375 gm/ Dextrose IVPB 06/27/20 15:59 Q8H-IV [facility] Protocol Piperacillin Sod/Tazobactam 50 mls @ 100 mls/hr 06/26/20 10:00 Sod 3.375 gm/ Dextrose IVPB Q8H-IV [facility] Protocol Sodium Chloride 1,000 mls @ 150 mls/hr 06/26/20 13:15 Normal Saline - IV ASDIR [facility] Ipratropium [place] 1 amp 06/26/20 13:02 Atrovent 0.02% Nebulizer - NEB 07/03/20 13:02 Q6H PRN Dyspnea Lactobacillus Acidophilus 1 tab 06/26/20 13:30 Bacid - PO DAILY [facility] Lactulose 20 gm 06/26/20 22:00 Cephulac (Oral Use) PO BID [facility] Levothyroxine Sodium 100 mcg 06/26/20 13:45 Synthroid - PO 0700 [facility] Lorazepam 2 mg 06/26/20 14:00 Ativan - PO QID [facility] Pantoprazole Sodium 40 mg 06/26/20 13:45 Protonix - PO DAILY [facility] Valproate Sodium 250 mg 06/26/20 14:00 Depakene - PO TID [facility] ASSESSMENT/PLAN: 19F w/autism(behavioral distubances), ADHD, [employer] shunt, developmental disabilities, minimally verbal, hypothryoidism, ?seizure disorder, COVID+(January?) BIBA fom [facility] for diffifculty breathing/wheezing as per NH staff. EMS reportedly noted pt was 85% on RA. No O2 requirement in ED. Sinus Tachy to 126bpm. Labs notable for WBC 13.4. CXR showing Left pleural effusion, bibasilar atelectasis. Admitted for possible Left-sided basilar PNA #hypoxic respiratory distress 2/2 possible healthcare-associated Left-sided PNA w/a pleural effusion --also likely atelectasis > CXR: Left pleural effusion, bibasilar atelectasis > COVID pending - no supplemental O2 requirements - abx regimen: --ED: sp ceftriaxone --Floor: ---no zosyn administered b/c pt arrived from ED to floor w/o IV access ---sp levofloxacin 750mg PO - ID consult(Madalyn) --rec cw empiric zosyn --rec fu on BCX, UA, Urine Ag - Pulmonary consult(Yony) --recs pending #sinus tachycardia --possibly 2/2 agitation vs dehdydration vs hyperthyroidism > HR to 140s - would bolus IVF but pt has no IV access - PO hydration and monitor HR - fu TSH #chronic ?seizure disorder - cw valproic acid 250 TID #hypothyroidism - cw levothyroxine 100 #chronic Autism - reorient frequently - cw lorazepam 2mg QID, cloazpine 150 BID, chlorpromazine 200 FEN - NS @150 when IV access established - regular diet - encourage PO intake DVT PPX - SCDs Visit type - Emergency Visit Emergency Visit: No - New Patient This patient is new to me today: Yes Date on this admission: 06/27/20 - Critical Care Critical Care patient: No ATTENDING PHYSICIAN STATEMENT I saw and evaluated the patient. I reviewed the resident's note and discussed the case with the resident. I agree with the resident's findings and plan as documented. SUBJECTIVE: OBJECTIVE: ASSESSMENT AND PLAN:
[2020-06-26] MEDS ORDERED: CLOZAPINE PO SCH (15:00)
[2020-06-26] MEDS ORDERED: PIPERACILLIN/TAZOB 3.375 GM 3.375 GM in DEXTROSE 5%-WATER - 50 ML IVPB SCH (16:00)
[2020-06-26] MEDS: LORazepam 1 MG TABLET PO SCH ×3 (16:45→22:02)
--- NOTE | 2020-06-26 17:05 | CON.ID ---
Consult - History of Present Illness History of Present Illness: 19 y.o. female with PMH of Autism, developmental delay, ADHD, Asthma, s/p [employer] shunt, and COVID + in February sent from a [facility] for hypoxia reportedly with desaturation to 85% on RA. In the ER she was noted to be tachycardic and labs showed an elevated wbc. She is not a reliable source of information. CXR notable for Lt basilar infiltrate and pleural effusion. Repeat COVID test is pending. She has been started on broad spectrum antibioticss. Currently she is alert and verbally responsive, appearing comfortable. Denies SOB, fever/chills, chest pain, abd pain. - History Source History Provided By: Medical Record, Caregiver Limitations to Obtaining History: Poor Historian - Past Medical History Pulmonary: Yes: Asthma Psych: Yes: Other ( COVID + 03/15) Additional Medical History: Autism, developmental delay - Past Surgical History Additional Surgical History: [employer]TERN[employer] shunt - Alcohol/Substance Use Hx Alcohol Use: No - Smoking History Smoking history: Never smoked Have you smoked in the past 12 months: No - Social History Usual Living Arrangement: Assisted Living History of Recent Travel: No Home Medications - Allergies Allergies/Adverse Reactions: Allergies Allergy/AdvReac Type Severity Reaction Status Date / Time No Known Allergies Allergy Verified 06/25/20 20:52 - Home Medications Home Medications: Ambulatory Orders Bisacodyl [Dulcolax] 10 mg RC HS PRN 06/26/20 Chlorpromazine [Thorazine -] 200 mg PO DAILY 06/26/20 Clonidine HCl [Clonidine HCl ER] 0.1 mg PO BID 06/26/20 Clozapine 150 mg PO BID 06/26/20 Ferrous Gluconate [Fergon -] 648 mg PO BID 06/26/20 Gabapentin 400 mg PO QID 06/26/20 LORazepam [Lorazepam] 2 mg PO QID 06/26/20 Lactobacillus Acidophilus [Acidophilus] 1 each PO DAILY 06/26/20 Lactulose 30 mg PO BID 06/26/20 Levothyroxine [Synthroid -] 100 mcg PO DAILY 06/26/20 Medroxyprogesterone Acetate [Depo-Provera] 150 mg IM Q3M 06/26/20 Omeprazole 40 mg PO DAILY 06/26/20 Valproic Acid (As Sodium Salt) [Valproic Acid] 250 mg PO TID 06/26/20 Review of Systems Findings/Remarks: Pt unreliable source - Review of Systems Constitutional: reports: No Symptoms Eyes: reports: No Symptoms HENT: reports: No Symptoms Neck: reports: No Symptoms Cardiovascular: reports: No Symptoms Respiratory: reports: No Symptoms Gastrointestinal: reports: No Symptoms Genitourinary: reports: No Symptoms Integumentary: reports: No Symptoms Neurological: reports: No Symptoms Psychiatric: reports: Other (Agitated earler) Physical Exam Vital Signs: Vital Signs Temperature 98 F 06/26/20 15:20 Pulse Rate 144 H 06/26/20 15:20 Respiratory Rate 20 06/26/20 15:20 Blood Pressure 126/80 06/26/20 15:20 O2 Sat by Pulse Oximetry (%) 97 06/26/20 15:20 Constitutional: Yes: No Distress, Calm Eyes: Yes: Conjunctiva Clear HENT: Yes: Atraumatic Neck: Yes: Supple Cardiovascular: Yes: Tachycardia Respiratory: Yes: Diminished (slightly in Lt base, no wheezing/rhonchi) Gastrointestinal: Yes: Normal Bowel Sounds, Soft, Abdomen, Obese Renal/: Yes: WNL Musculoskeletal: Yes: WNL Extremities: Yes: WNL Integumentary: Yes: WNL Neurological: Yes: Alert Psychiatric: Yes: Alert Labs: CBC, BMP 06/26/20 06:06 06/26/20 06:28 Laboratory Tests 06/26/20 06/26/20 06:06 06:28 WBC 13.4 H RBC 5.53 H Hgb 15.7 H Hct 48.1 H D MCV 86.9 MCH 28.5 MCHC 32.7 RDW 13.4 Plt Count 322 D MPV 8.7 D Absolute Neuts (auto) 12.0 H Neutrophils % 89.5 H D Lymphocytes % 8.9 D Monocytes % 1.1 L D Eosinophils % 0.3 D Basophils % 0.2 Nucleated RBC % 0 Sodium 141 Potassium 4.2 Chloride 109 H Carbon Dioxide 23 Anion Gap 9 BUN 6.2 L Creatinine 1.1 Est GFR (CKD-EPI)AfAm 83.70 Est GFR (CKD-EPI)NonAf 72.22 Random Glucose 109 H Calcium 10.2 H Total Bilirubin 0.2 AST 15 ALT 25 Alkaline Phosphatase 104 Total Protein 8.6 H Albumin 3.9 Laboratory Last Values WBC 13.4 K/mm3 (4.0-10.0) H 08/01/20 06:06 RBC 5.53 M/mm3 (3.60-5.2) H 06/26/20 06:06 Hgb 15.7 GM/dL (10.7-15.3) H 06/26/20 06:06 Hct 48.1 % (32.4-45.2) H D 06/26/20 06:06 MCV 86.9 fl (80-96) 06/26/20 06:06 MCH 28.5 pg (25.7-33.7) 06/26/20 06:06 MCHC 32.7 g/dl (32.0-36.0) 06/26/20 06:06 RDW 13.4 % (11.6-15.6) 06/26/20 06:06 Plt Count 322 K/MM3 (134-434) D 06/26/20 06:06 MPV 8.7 fl (7.5-11.1) D 06/26/20 06:06 Absolute Neuts (auto) 12.0 K/mm3 (1.5-8.0) H 06/26/20 06:06 Neutrophils % 89.5 % (42.8-82.8) H D 06/26/20 06:06 Lymphocytes % 8.9 % (8-40) D 06/26/20 06:06 Monocytes % 1.1 % (3.8-10.2) L D 06/26/20 06:06 Eosinophils % 0.3 % (0-4.5) D 06/26/20 06:06 Basophils % 0.2 % (0-2.0) 06/26/20 06:06 Nucleated RBC % 0 % (0-0) 06/26/20 06:06 Sodium 141 mmol/L (136-145) 06/26/20 06:28 Potassium 4.2 mmol/L (3.5-5.1) 06/26/20 06:28 Chloride 109 mmol/L (98-107) H 06/26/20 06:28 Carbon Dioxide 23 mmol/L (21-32) 06/26/20 06:28 Anion Gap 9 MMOL/L (8-16) 06/26/20 06:28 BUN 6.2 mg/dL (7-18) L 06/26/20 06:28 Creatinine 1.1 mg/dL (0.55-1.3) 06/26/20 06:28 Est GFR (CKD-EPI)AfAm 83.70 06/26/20 06:28 Est GFR (CKD-EPI)NonAf 72.22 06/26/20 06:28 Random Glucose 109 mg/dL (74-106) H 06/26/20 06:28 Calcium 10.2 mg/dL (8.5-10.1) H 06/26/20 06:28 Total Bilirubin 0.2 mg/dL (0.2-1) 06/26/20 06:28 AST 15 U/L (15-37) 06/26/20 06:28 ALT 25 U/L (13-61) 06/26/20 06:28 Alkaline Phosphatase 104 U/L (45-117) 06/26/20 06:28 Total Protein 8.6 g/dl (6.4-8.2) H 06/26/20 06:28 Albumin 3.9 g/dl (3.4-5.0) 06/26/20 06:28 Imaging - Results Chest X-ray: Report Reviewed Problem List - Problems (1) ADHD Code(s): F90.9 - ATTENTION-DEFICIT HYPERACTIVITY DISORDER, UNSPECIFIED TYPE (2) Acute respiratory failure with hypoxia Code(s): J96.01 - ACUTE RESPIRATORY FAILURE WITH HYPOXIA (3) Developmental disorder Code(s): F89 - UNSPECIFIED DISORDER OF PSYCHOLOGICAL DEVELOPMENT (4) Pneumonia Code(s): J18.9 - PNEUMONIA, UNSPECIFIED ORGANISM (5) Behavioral disorder Code(s): LFH3964 - Assessment/Plan PNA Sepsis Acute respiratory failure Autism Developmental Delay Asthma s/p [employer] shunt -- wbc elevated, pt is tachycardic -- continue Zosyn empirically -- Blood cultures, U/A, Urine Ag -- O2 supplementation as needed -- EKG pending -- follow up COVID testing, maintain isolation/precautions for now -- monitor wbc trend/vitals Will follow up Thank you
[2020-06-26] MEDS: GABAPENTIN 400 MG CAPSULE PO SCH ×3 (18:26→22:03)
[2020-06-26] MEDS ORDERED: PT OWN MED DRAWER 7, Y5N ONE (18:38)
[2020-06-26] MEDS: SODIUM CHLORIDE 1,000 ML IV SCH (20:46)
[2020-06-26] MEDS: PIPERACILLIN/TAZOB 3.375 GM 3.375 GM in DEXTROSE 5%-WATER - 50 ML IVPB SCH (20:47)
[2020-06-26] MEDS ORDERED: LACTULOSE 20 GM/30 ML UDC (FOR ORAL USE ONLY) PO SCH (22:00)
[2020-06-26] MEDS ORDERED: FERROUS GLUCONATE 324 MG TAB (FP) PO SCH (22:00)
[2020-06-26] MEDS: CLOZAPINE PO SCH (22:03)
[2020-06-26] MEDS: FERROUS GLUCONATE 324 MG TAB (FP) PO SCH (22:03)
[2020-06-26] MEDS: LACTULOSE 20 GM/30 ML UDC (FOR ORAL USE ONLY) PO SCH (22:04)
[2020-06-26] MEDS: VALPROATE SODIUM 250 MG/5 ML UNIT DOSE CUP PO SCH (22:04)
[2020-06-26] MEDS: cloNIDine HCL 0.1 MG TABLET PO SCH (22:04)
[2020-06-27] MEDS: PIPERACILLIN/TAZOB 3.375 GM 3.375 GM in DEXTROSE 5%-WATER - 50 ML IVPB SCH ×3 (01:26→17:02)
[2020-06-27] MEDS: ALBUTEROL SO4 HFA INHALER IH SCH ×6 (01:38→21:52)
[2020-06-27] MEDS ORDERED: PIPERACILLIN/TAZOB 3.375 GM 3.375 GM in DEXTROSE 5%-WATER - 50 ML IVPB SCH ×2 (02:00→18:00)
[2020-06-27] MEDS ORDERED: PT OWN MED DRAWER 7, Y5N ONE ×8 (06:01→20:59)
[2020-06-27] MEDS: VALPROATE SODIUM 250 MG/5 ML UNIT DOSE CUP PO SCH ×3 (06:23→21:42)
[2020-06-27] MEDS: LEVOTHYROXINE NA 100 MCG TABLET (FP) PO SCH (06:24)
[2020-06-27] MEDS ORDERED: PIPERACILLIN/TAZOBACTAM 3.375 GM VIAL IVPB ONE ×2 (08:32→16:11)
[2020-06-27] MEDS ORDERED: DEXTROSE 5%-WATER - 50 ML IVPB ONE ×2 (08:33→16:11)
[2020-06-27] MEDS: LACTULOSE 20 GM/30 ML UDC (FOR ORAL USE ONLY) PO SCH ×2 (09:49→21:43)
[2020-06-27] MEDS: LACTOBACILLUS ACIDOPHILUS 1 TABLET PO SCH (09:49)
[2020-06-27] MEDS: LORazepam 1 MG TABLET PO SCH ×4 (09:50→21:42)
[2020-06-27] MEDS: cloNIDine HCL 0.1 MG TABLET PO SCH ×2 (09:51→21:43)
[2020-06-27] MEDS: CLOZAPINE PO SCH ×2 (09:52→21:43)
[2020-06-27] MEDS: FERROUS GLUCONATE 324 MG TAB (FP) PO SCH ×2 (09:53→21:42)
[2020-06-27] MEDS: GABAPENTIN 400 MG CAPSULE PO SCH ×4 (09:54→21:42)
[2020-06-27] MEDS: chlorproMAZINE HCL 100 MG TABLET PO SCH (09:55)
[2020-06-27] MEDS: PANTOPRAZOLE 40 MG TABLET PO SCH (09:55)
--- NOTE | 2020-06-27 11:36 | PN ---
Progress Note (short form) - Note Progress Note: SUBJECTIVE: Minimally verbal, no complaints. Unable to participate meaningfully in medical interview. Remained without IV access for the day yesterday as access was seemingly impossible to obtain. Now has IV line successfully placed. OBJECTIVE: Afebrile, Hemodynamically stable. Appears comfortable. Intermittently agitated, momentary flailing, generally redirectable. Last Vital Signs Temp Pulse Resp BP Pulse Ox 97.7 F 117 H 20 116/78 98 06/27/20 06:00 06/27/20 06:00 06/27/20 06:00 06/27/20 06:00 06/27/20 01:33 HEENT - Atraumatic Heart- S1, S2, Tachy Lungs - decreased air entry LLZ Abdomen - high BMI, soft, non-tender. Bowel Sounds normal. Extremities - no edema, no calf tenderness. Neuro - Moving all 4 extremities. Current Medications Generic Name Dose Route Start Last Admin Trade Name Freq PRN Reason Stop Dose Admin Albuterol Sulfate 2 puff 06/26/20 21:15 06/27/20 09:50 Ventolin Hfa Inhaler - IH 2 puff Q4H [facility] Administration Bisacodyl 10 mg 06/26/20 18:24 Dulcolax Suppository - RC HS PRN CONSTIPATION Chlorpromazine HCl 200 mg 06/27/20 10:00 06/27/20 09:55 Thorazine - PO 200 mg DAILY [facility] Administration Clonidine 0.1 mg 06/26/20 22:00 06/27/20 09:51 Catapres - PO 0.1 mg BID [facility] Administration Clozapine 100 mg/ Clozapine 50 150 mg 06/26/20 22:00 06/27/20 09:52 mg PO 150 mg BID [facility] Administration Ferrous Gluconate 648 mg 06/26/20 22:00 06/27/20 09:53 Fergon - PO 648 mg BID [facility] Administration Gabapentin 400 mg 06/26/20 22:00 06/27/20 09:54 Neurontin - PO 400 mg QID [facility] Administration Piperacillin Sod/Tazobactam 50 mls @ 100 mls/hr 06/26/20 19:00 06/27/20 10:42 Sod 3.375 gm/ Dextrose IVPB 100 mls/hr Q8H-IV [facility] Administration Protocol Sodium Chloride 1,000 mls @ 150 mls/hr 06/26/20 18:24 06/26/20 20:46 Normal Saline - IV Not Given ASDIR [facility] Ipratropium [place] 1 amp 06/26/20 18:24 Atrovent 0.02% Nebulizer - NEB 07/03/20 13:02 Q6H PRN Dyspnea Lactobacillus Acidophilus 1 tab 06/27/20 10:00 06/27/20 09:49 Bacid - PO 1 tab DAILY [facility] Administration Lactulose 20 gm 06/26/20 22:00 06/27/20 09:49 Cephulac (Oral Use) PO 20 gm BID [facility] Administration Levothyroxine Sodium 100 mcg 06/27/20 07:00 06/27/20 06:24 Synthroid - PO 100 mcg 0700 [facility] Administration Lorazepam 2 mg 06/26/20 22:00 06/27/20 09:50 Ativan - PO 2 mg QID [facility] Administration Pantoprazole Sodium 40 mg 06/27/20 10:00 06/27/20 09:55 Protonix - PO 40 mg DAILY [facility] Administration Valproate Sodium 250 mg 06/26/20 22:00 06/27/20 06:23 Depakene - PO 250 mg TID [facility] Administration Home Medications Medication Instructions Recorded Bisacodyl [Dulcolax] 10 mg RC HS PRN 06/26/20 Chlorpromazine [Thorazine -] 200 mg PO DAILY 06/26/20 Clonidine HCl [Clonidine HCl ER] 0.1 mg PO BID 06/26/20 Clozapine 150 mg PO BID 06/26/20 Ferrous Gluconate [Fergon -] 648 mg PO BID 06/26/20 Gabapentin 400 mg PO QID 06/26/20 LORazepam [Lorazepam] 2 mg PO QID 06/26/20 Lactobacillus Acidophilus 1 each PO DAILY 06/26/20 [Acidophilus] Lactulose 30 mg PO BID 06/26/20 Levothyroxine [Synthroid -] 100 mcg PO DAILY 06/26/20 Medroxyprogesterone Acetate 150 mg IM Q90D 06/26/20 [Depo-Provera] Omeprazole 40 mg PO DAILY 06/26/20 Valproic Acid (As Sodium Salt) 250 mg PO TID 06/26/20 [Valproic Acid] ASSESSMENT AND PLAN: 19 year old female resident at [facility] with history of Autism, ADHD, Developmental Disorder, COVID+(02/2020), s/p [employer] RE[employer] Shunt, Hypothyroidism, presents with increasing SOB/wheeze reported desaturation to 85% on RA as per EMS. CXR - moderate pleural effusion with consolidation/atelectasis of the left lower lobe 1. Acute Hypoxic Respiratory Failure and Sepsis secondary to likely Pneumonia with Parapneumonic effusion She is dehydrated and tachycardic, requires intensive IV hydration as well as IV Abx therapy. She however remained without IV line placed for IV fluids and IV Zosyn yesterday - line now placed and functioning. Received Levofloxacin single dose yesterday. Will continue IV zosyn and IV fluids now that IV line is placed. Pulm consulted given moderate L pleural effusion. Hx COVID 03/15, repeat COVID PCR pending. 2. Hx of Asthma - no evidence of Asthma exacerbation Received Solumedrol in ED No wheeze currently. Continue Ipratropium Neb PRN (Will hold Albuterol neb for now given tachycardia) No need for steroid therapy. 3. History of Autism, ADHD, Developmental Disorder, Behavioral Disturbance, s/p CR[employer] REPAIR[employer] Shunt, ?SD Resumed home meds including Chlorpromazine, Clonidine, Clozapine, Lorazepam, Valproic Acid 4. Hypothyroidism - continue Levothyroxine. TSH requested. DVT Px - Lovenox SQ. Visit type - Emergency Visit Emergency Visit: Yes ED Registration Date: 06/26/20 Care time: The patient presented to the Emergency Department on the above date and was hospitalized for further evaluation of their emergent condition. - New Patient This patient is new to me today: No - Critical Care Critical Care patient: No - Discharge Referral Referred to [facility] Med P.C.: No
[2020-06-27] MEDS: ENOXAPARIN NA (PORCINE) 40 MG/0.4 ML DISP.SYRIN SQ SCH (12:36)
--- NOTE | 2020-06-27 12:57 | PN ---
Progress Note (short form) - Note Progress Note: PULMONARY Less tachycardic, tachypneic today. Vital Signs Period Temp Pulse Resp BP Sys/Gaviria Pulse Ox Last 24 Hr 97.5 F-98.5 F 117-144 18-20 110-144/71-90 97-98 Gen: mildly tachypneic at rest, less flaring Heart: tachycardic, regular Lung: decreased breath sounds left base Abd: soft, nontender Ext: no edema CBC, BMP 06/26/20 06:06 06/26/20 06:28 Active Medications Albuterol Sulfate (Ventolin Hfa Inhaler -) 2 puff IH Q4H [facility] Last Admin: 06/27/20 12:37 Dose: 2 puff Documented by: Bisacodyl (Dulcolax Suppository -) 10 mg RC HS PRN PRN Reason: CONSTIPATION Chlorpromazine HCl (Thorazine -) 200 mg PO DAILY [facility] Last Admin: 06/27/20 09:55 Dose: 200 mg Documented by: Clonidine (Catapres -) 0.1 mg PO BID [facility] Last Admin: 06/27/20 09:51 Dose: 0.1 mg Documented by: Clozapine 100 mg/ Clozapine 50 (mg) 150 mg PO BID [facility] Last Admin: 06/27/20 09:52 Dose: 150 mg Documented by: Enoxaparin Sodium (Lovenox -) 40 mg SQ DAILY [facility] Last Admin: 06/27/20 12:36 Dose: 40 mg Documented by: Ferrous Gluconate (Fergon -) 648 mg PO BID [facility] Last Admin: 06/27/20 09:53 Dose: 648 mg Documented by: Gabapentin (Neurontin -) 400 mg PO QID [facility] Last Admin: 06/27/20 09:54 Dose: 400 mg Documented by: Piperacillin Sod/Tazobactam (Sod 3.375 gm/ Dextrose) 50 mls @ 100 mls/hr IVPB Q8H-IV [facility]; Protocol Last Admin: 06/27/20 10:42 Dose: 100 mls/hr Documented by: Sodium Chloride (Normal Saline -) 1,000 mls @ 150 mls/hr IV ASDIR [facility] Last Admin: 06/26/20 20:46 Dose: Not Given Documented by: Ipratropium [place] (Atrovent 0.02% Nebulizer -) 1 amp NEB Q6H PRN PRN Reason: Dyspnea Stop: 07/03/20 13:02 Lactobacillus Acidophilus (Bacid -) 1 tab PO DAILY [facility] Last Admin: 06/27/20 09:49 Dose: 1 tab Documented by: Lactulose (Cephulac (Oral Use)) 20 gm PO BID [facility] Last Admin: 06/27/20 09:49 Dose: 20 gm Documented by: Levothyroxine Sodium (Synthroid -) 100 mcg PO 0700 [facility] Last Admin: 06/27/20 06:24 Dose: 100 mcg Documented by: Lorazepam (Ativan -) 2 mg PO QID [facility] Last Admin: 06/27/20 09:50 Dose: 2 mg Documented by: Pantoprazole Sodium (Protonix -) 40 mg PO DAILY [facility] Last Admin: 06/27/20 09:55 Dose: 40 mg Documented by: Valproate Sodium (Depakene -) 250 mg PO TID [facility] Last Admin: 06/27/20 06:23 Dose: 250 mg Documented by: A/P Pneumonia Sepsis Tachycardia Asthma Autism - continue antibiotics - f/u cultures - urine antigens - O2 to keep SpO2 >90% - DVT prophylaxis
[2020-06-27] MEDS ORDERED: SODIUM CHLORIDE 1,000 ML IV STA (14:53)
--- NOTE | 2020-06-27 16:02 | PN ---
Progress Note, Physician History of Present Illness: Pt is alert, without obvious distress. Has been tachycardic. Dose of Levaquin given yesterday due to lack of IV access. Receiving Zosyn today. Mother in pt's room who brought in food. No coughing noted. - Current Medication List Current Medications: Active Medications Albuterol Sulfate (Ventolin Hfa Inhaler -) 2 puff IH Q4H [facility] Last Admin: 06/27/20 12:37 Dose: 2 puff Documented by: Bisacodyl (Dulcolax Suppository -) 10 mg RC HS PRN PRN Reason: CONSTIPATION Chlorpromazine HCl (Thorazine -) 200 mg PO DAILY [facility] Last Admin: 06/27/20 09:55 Dose: 200 mg Documented by: Clonidine (Catapres -) 0.1 mg PO BID [facility] Last Admin: 06/27/20 09:51 Dose: 0.1 mg Documented by: Clozapine 100 mg/ Clozapine 50 (mg) 150 mg PO BID [facility] Last Admin: 06/27/20 09:52 Dose: 150 mg Documented by: Enoxaparin Sodium (Lovenox -) 40 mg SQ DAILY [facility] Last Admin: 06/27/20 12:36 Dose: 40 mg Documented by: Ferrous Gluconate (Fergon -) 648 mg PO BID [facility] Last Admin: 06/27/20 09:53 Dose: 648 mg Documented by: Gabapentin (Neurontin -) 400 mg PO QID [facility] Last Admin: 06/27/20 13:27 Dose: 400 mg Documented by: Piperacillin Sod/Tazobactam (Sod 3.375 gm/ Dextrose) 50 mls @ 100 mls/hr IVPB Q8H-IV [facility]; Protocol Last Admin: 06/27/20 10:42 Dose: 100 mls/hr Documented by: Sodium Chloride (Normal Saline -) 1,000 mls @ 150 mls/hr IV ASDIR [facility] Last Admin: 06/26/20 20:46 Dose: Not Given Documented by: Ipratropium [place] (Atrovent 0.02% Nebulizer -) 1 amp NEB Q6H PRN PRN Reason: Dyspnea Stop: 07/03/20 13:02 Lactobacillus Acidophilus (Bacid -) 1 tab PO DAILY [facility] Last Admin: 06/27/20 09:49 Dose: 1 tab Documented by: Lactulose (Cephulac (Oral Use)) 20 gm PO BID [facility] Last Admin: 06/27/20 09:49 Dose: 20 gm Documented by: Levothyroxine Sodium (Synthroid -) 100 mcg PO 0700 [facility] Last Admin: 06/27/20 06:24 Dose: 100 mcg Documented by: Lorazepam (Ativan -) 2 mg PO QID [facility] Last Admin: 06/27/20 13:27 Dose: 2 mg Documented by: Pantoprazole Sodium (Protonix -) 40 mg PO DAILY [facility] Last Admin: 06/27/20 09:55 Dose: 40 mg Documented by: Valproate Sodium (Depakene -) 250 mg PO TID [facility] Last Admin: 06/27/20 13:27 Dose: 250 mg Documented by: - Objective Vital Signs: Vital Signs Temperature 98.3 F 06/27/20 14:00 Pulse Rate 133 H 06/27/20 14:00 Respiratory Rate 19 06/27/20 15:28 Blood Pressure 119/77 06/27/20 14:00 O2 Sat by Pulse Oximetry (%) 96 06/27/20 15:28 Constitutional: Yes: No Distress, Calm Cardiovascular: Yes: Tachycardia Respiratory: Yes: Diminished (Lt base) Gastrointestinal: Yes: Normal Bowel Sounds, Soft, Abdomen, Obese Genitourinary: Yes: WNL Integumentary: Yes: WNL Neurological: Yes: Alert Psychiatric: Yes: Alert Labs: CBC, BMP 06/26/20 06:06 06/26/20 06:28 Laboratory Tests 06/26/20 06/26/20 06:06 06:28 WBC 13.4 H RBC 5.53 H Hgb 15.7 H Hct 48.1 H D MCV 86.9 MCH 28.5 MCHC 32.7 RDW 13.4 Plt Count 322 D MPV 8.7 D Absolute Neuts (auto) 12.0 H Neutrophils % 89.5 H D Lymphocytes % 8.9 D Monocytes % 1.1 L D Eosinophils % 0.3 D Basophils % 0.2 Nucleated RBC % 0 Sodium 141 Potassium 4.2 Chloride 109 H Carbon Dioxide 23 Anion Gap 9 BUN 6.2 L Creatinine 1.1 Est GFR (CKD-EPI)AfAm 83.70 Est GFR (CKD-EPI)NonAf 72.22 Random Glucose 109 H Calcium 10.2 H Total Bilirubin 0.2 AST 15 ALT 25 Alkaline Phosphatase 104 Total Protein 8.6 H Albumin 3.9 TSH 0.85 Problem List - Problems (1) ADHD Code(s): F90.9 - ATTENTION-DEFICIT HYPERACTIVITY DISORDER, UNSPECIFIED TYPE (2) Acute respiratory failure with hypoxia Code(s): J96.01 - ACUTE RESPIRATORY FAILURE WITH HYPOXIA (3) Developmental disorder Code(s): F89 - UNSPECIFIED DISORDER OF PSYCHOLOGICAL DEVELOPMENT (4) Pneumonia Code(s): J18.9 - PNEUMONIA, UNSPECIFIED ORGANISM (5) Behavioral disorder Code(s): GZV4075 - Assessment/Plan PNA Sepsis Acute respiratory failure Autism Developmental Delay Asthma 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 96% O2 sat on RA currently -- continue Zosyn empirically now that IV access established -- send Blood cultures, U/A, Urine Ag -- O2 supplementation as needed -- follow up COVID testing results, maintain isolation/precautions for now -- no lab results available for today. Please repeat. monitor wbc trend/vitals -- mother brought in food for pt. Advised to avoid feeding if pt is coughing to avoid aspiration. Continue monitor
[2020-06-27] MEDS ORDERED: SODIUM CHLORIDE 1,000 ML IV SCH (17:30)
[2020-06-27 17:42] LABS: HEMATOCRIT 42.5 % (32.4-45.2); HEMOGLOBIN 13.7 GM/dL (10.7-15.3); MCH 28.4 pg (25.7-33.7); MCHC 32.3 g/dl (32.0-36.0); MEAN CELL VOLUME 87.9 fl (80-96); MEAN PLT VOLUME 8.7 fl (7.5-11.1); PLATELET COUNT 311 K/MM3 (134-434); RBC 4.84 M/mm3 (3.60-5.2); RDW 13.8 % (11.6-15.6); WHITE BLOOD COUNT 9.8 K/mm3 (4.0-10.0)
[2020-06-27 18:21] LABS: MAGNESIUM 2.2 mg/dL (1.8-2.4); POTASSIUM 4.2 mmol/L (3.5-5.1)
[2020-06-27] MEDS ORDERED: HALOPERIDOL LACTATE 5 MG/ML IM ONE (21:29)
[2020-06-27] MEDS ORDERED: HALOPERIDOL LACTATE 5 MG/ML ONE (21:33)
[2020-06-27] MEDS: SODIUM CHLORIDE 1,000 ML IV SCH (21:51)
[2020-06-28] MEDS ORDERED: PIPERACILLIN/TAZOBACTAM 3.375 GM VIAL IVPB ONE ×3 (01:35→16:22)
[2020-06-28] MEDS ORDERED: DEXTROSE 5%-WATER - 50 ML IVPB ONE ×3 (01:36→16:23)
[2020-06-28] MEDS: PIPERACILLIN/TAZOB 3.375 GM 3.375 GM in DEXTROSE 5%-WATER - 50 ML IVPB SCH ×3 (01:46→17:37)
[2020-06-28] MEDS: ALBUTEROL SO4 HFA INHALER IH SCH ×6 (01:46→21:22)
[2020-06-28] MEDS: VALPROATE SODIUM 250 MG/5 ML UNIT DOSE CUP PO SCH ×3 (06:15→21:22)
[2020-06-28] MEDS: LEVOTHYROXINE NA 100 MCG TABLET (FP) PO SCH (06:15)
--- NOTE | 2020-06-28 10:11 | EKG ---
Test Reason : Blood Pressure : / mmHG Vent. Rate : 146 BPM Atrial Rate : 146 BPM P-R Int : 118 ms QRS Dur : 076 ms QT Int : 262 ms P-R-T Axes : 038 028 220 degrees QTc Int : 408 ms SINUS TACHYCARDIA NONSPECIFIC T WAVE ABNORMALITY ABNORMAL ECG WHEN COMPARED WITH ECG OF 26-JUN-2020 04:40, NO SIGNIFICANT CHANGE WAS FOUND Confirmed by Cristhian Cadena ([id number]) on 06/28/2020 10:10:47 AM Referred By: Confirmed By:Cristhian Cadena
--- NOTE | 2020-06-28 10:12 | EKG ---
Test Reason : Blood Pressure : / mmHG Vent. Rate : 109 BPM Atrial Rate : 109 BPM P-R Int : 122 ms QRS Dur : 084 ms QT Int : 296 ms P-R-T Axes : 041 043 117 degrees QTc Int : 398 ms SINUS TACHYCARDIA NONSPECIFIC T WAVE ABNORMALITY ABNORMAL ECG WHEN COMPARED WITH ECG OF 24-FEB-2020 16:09, QT HAS SHORTENED Confirmed by Cristhian Cadena ([id number]) on 06/28/2020 10:12:16 AM Referred By: Confirmed By:Cristhian Cadena
[2020-06-28] MEDS: LACTULOSE 20 GM/30 ML UDC (FOR ORAL USE ONLY) PO SCH ×2 (10:23→21:22)
[2020-06-28] MEDS: CLOZAPINE PO SCH ×2 (10:24→21:22)
[2020-06-28] MEDS: GABAPENTIN 400 MG CAPSULE PO SCH ×4 (10:24→21:23)
[2020-06-28] MEDS: chlorproMAZINE HCL 100 MG TABLET PO SCH (10:24)
[2020-06-28] MEDS: LACTOBACILLUS ACIDOPHILUS 1 TABLET PO SCH (10:25)
[2020-06-28] MEDS: LORazepam 1 MG TABLET PO SCH ×4 (10:25→21:22)
[2020-06-28] MEDS: cloNIDine HCL 0.1 MG TABLET PO SCH ×2 (10:26→21:23)
[2020-06-28] MEDS: FERROUS GLUCONATE 324 MG TAB (FP) PO SCH ×2 (10:26→21:23)
[2020-06-28] MEDS: ENOXAPARIN NA (PORCINE) 40 MG/0.4 ML DISP.SYRIN SQ SCH (10:27)
[2020-06-28] MEDS: PANTOPRAZOLE 40 MG TABLET PO SCH (10:27)
--- NOTE | 2020-06-28 11:16 | CON.CARD ---
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 Hx from charts, pt not communicating. Treating for asthma, pna. Also with sinus tachy. pmh: per hpi psh: per hpi social: no tob fam: unknown ros: n/a 2/2 ams meds: Home Medications Medication Instructions Recorded Bisacodyl [Dulcolax] 10 mg RC HS PRN 06/26/20 Chlorpromazine [Thorazine -] 200 mg PO DAILY 06/26/20 Clonidine HCl [Clonidine HCl ER] 0.1 mg PO BID 06/26/20 Clozapine 150 mg PO BID 06/26/20 Ferrous Gluconate [Fergon -] 648 mg PO BID 06/26/20 Gabapentin 400 mg PO QID 06/26/20 LORazepam [Lorazepam] 2 mg PO QID 06/26/20 Lactobacillus Acidophilus 1 each PO DAILY 06/26/20 [Acidophilus] Lactulose 30 mg PO BID 06/26/20 Levothyroxine [Synthroid -] 100 mcg PO DAILY 06/26/20 Medroxyprogesterone Acetate 150 mg IM Q90D 06/26/20 [Depo-Provera] Omeprazole 40 mg PO DAILY 06/26/20 Valproic Acid (As Sodium Salt) 250 mg PO TID 06/26/20 [Valproic Acid] Current Medications Generic Name Dose Route Start Last Admin Trade Name Freq PRN Reason Stop Dose Admin Albuterol Sulfate 2 puff 06/26/20 21:15 06/28/20 09:26 Ventolin Hfa Inhaler - IH Not Given Q4H [facility] Bisacodyl 10 mg 06/26/20 18:24 Dulcolax Suppository - RC HS PRN CONSTIPATION Chlorpromazine HCl 200 mg 06/27/20 10:00 06/28/20 10:24 Thorazine - PO 200 mg DAILY [facility] Administration Clonidine 0.1 mg 06/26/20 22:00 06/28/20 10:26 Catapres - PO 0.1 mg BID [facility] Administration Clozapine 100 mg/ Clozapine 50 150 mg 06/26/20 22:00 06/28/20 10:24 mg PO 150 mg BID [facility] Administration Enoxaparin Sodium 40 mg 06/27/20 11:45 06/28/20 10:27 Lovenox - SQ 40 mg DAILY [facility] Administration Ferrous Gluconate 648 mg 06/26/20 22:00 06/28/20 10:26 Fergon - PO 648 mg BID [facility] Administration Gabapentin 400 mg 06/26/20 22:00 06/28/20 10:24 Neurontin - PO 400 mg QID [facility] Administration Piperacillin Sod/Tazobactam 50 mls @ 100 mls/hr 06/26/20 19:00 06/28/20 10:24 Sod 3.375 gm/ Dextrose IVPB 100 mls/hr Q8H-IV [facility] Administration Protocol Sodium Chloride 1,000 mls @ 150 mls/hr 06/26/20 18:24 06/27/20 21:51 Normal Saline - IV Not Given ASDIR [facility] Sodium Chloride 1,000 mls @ 125 mls/hr 06/27/20 17:30 06/27/20 17:36 Normal Saline - IV 125 mls/hr ASDIR [facility] Administration Ipratropium [place] 1 amp 06/26/20 18:24 Atrovent 0.02% Nebulizer - NEB 07/03/20 13:02 Q6H PRN Dyspnea Lactobacillus Acidophilus 1 tab 06/27/20 10:00 06/28/20 10:25 Bacid - PO 1 tab DAILY [facility] Administration Lactulose 20 gm 06/26/20 22:00 06/28/20 10:23 Cephulac (Oral Use) PO 20 gm BID [facility] Administration Levothyroxine Sodium 100 mcg 06/27/20 07:00 06/28/20 06:15 Synthroid - PO Not Given 0700 [facility] Lorazepam 2 mg 06/26/20 22:00 06/28/20 10:25 Ativan - PO 2 mg QID [facility] Administration Pantoprazole Sodium 40 mg 06/27/20 10:00 06/28/20 10:27 Protonix - PO 40 mg DAILY [facility] Administration Valproate Sodium 250 mg 06/26/20 22:00 06/28/20 06:15 Depakene - PO Not Given TID [facility] pe: Vital Signs Period Temp Pulse Resp BP Sys/Gaviria Pulse Ox Last 24 Hr 97.8 F-98.3 F 113-140 19-20 114-137/76-81 96-98 nad no jvd tachy, regular, s1s2 no mrg cta ant poor eff lethargic abd nt nd pos bs no jaundice diaphoresis +dp pt no carotid bruit Laboratory Last Values WBC 9.8 K/mm3 (4.0-10.0) 06/27/20 16:31 RBC 4.84 M/mm3 (3.60-5.2) 06/27/20 16:31 Hgb 13.7 GM/dL (10.7-15.3) 06/27/20 16:31 Hct 42.5 % (32.4-45.2) 06/27/20 16:31 MCV 87.9 fl (80-96) 06/27/20 16:31 MCH 28.4 pg (25.7-33.7) 06/27/20 16:31 MCHC 32.3 g/dl (32.0-36.0) 06/27/20 16:31 RDW 13.8 % (11.6-15.6) 06/27/20 16:31 Plt Count 311 K/MM3 (134-434) 06/27/20 16:31 MPV 8.7 fl (7.5-11.1) 06/27/20 16:31 Absolute Neuts (auto) 12.0 K/mm3 (1.5-8.0) H 06/26/20 06:06 Neutrophils % 89.5 % (42.8-82.8) H D 06/26/20 06:06 Lymphocytes % 8.9 % (8-40) D 06/26/20 06:06 Monocytes % 1.1 % (3.8-10.2) L D 06/26/20 06:06 Eosinophils % 0.3 % (0-4.5) D 06/26/20 06:06 Basophils % 0.2 % (0-2.0) 06/26/20 06:06 Nucleated RBC % 0 % (0-0) 06/26/20 06:06 Sodium 142 mmol/L (136-145) 06/27/20 16:31 Potassium 4.2 mmol/L (3.5-5.1) 06/27/20 16:31 Chloride 113 mmol/L (98-107) H 06/27/20 16:31 Carbon Dioxide 21 mmol/L (21-32) 06/27/20 16:31 Anion Gap 9 MMOL/L (8-16) 06/27/20 16:31 BUN 9.0 mg/dL (7-18) 06/27/20 16:31 Creatinine 1.0 mg/dL (0.55-1.3) 06/27/20 16:31 Est GFR (CKD-EPI)AfAm 93.92 06/27/20 16:31 Est GFR (CKD-EPI)NonAf 81.04 06/27/20 16:31 Random Glucose 100 mg/dL (74-106) 06/27/20 16:31 Calcium 9.0 mg/dL (8.5-10.1) 06/27/20 16:31 Magnesium 2.2 mg/dL (1.8-2.4) 06/27/20 16:31 Total Bilirubin 0.2 mg/dL (0.2-1) 06/26/20 06:28 AST 15 U/L (15-37) 06/26/20 06:28 ALT 25 U/L (13-61) 06/26/20 06:28 Alkaline Phosphatase 104 U/L (45-117) 06/26/20 06:28 Total Protein 8.6 g/dl (6.4-8.2) H 06/26/20 06:28 Albumin 3.9 g/dl (3.4-5.0) 06/26/20 06:28 TSH 3.29 uIU/ml (0.358-3.74) 06/27/20 16:31 COVID-19 ([facility]) Not detected (Not Detected) 06/26/20 00:43 ecg: sinus tachy, nl intervals, no ischemic changes cxr: left eff tele: sr, sinus tachy a/p: 19 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 sinus tachy: -tele and ecg show sinus tachy, no arrhythmias -tsh wnl -likely due to acute issues. will check echo. sob, asthma, pleural eff, pna: -on abx, albuterol, pulm following
--- NOTE | 2020-06-28 11:38 | PN ---
Progress Note, Physician History of Present Illness: improving calm breathing well - Current Medication List Current Medications: Active Medications Albuterol Sulfate (Ventolin Hfa Inhaler -) 2 puff IH Q4H [facility] Last Admin: 06/28/20 09:26 Dose: Not Given Documented by: Bisacodyl (Dulcolax Suppository -) 10 mg RC HS PRN PRN Reason: CONSTIPATION Chlorpromazine HCl (Thorazine -) 200 mg PO DAILY [facility] Last Admin: 06/28/20 10:24 Dose: 200 mg Documented by: Clonidine (Catapres -) 0.1 mg PO BID [facility] Last Admin: 06/28/20 10:26 Dose: 0.1 mg Documented by: Clozapine 100 mg/ Clozapine 50 (mg) 150 mg PO BID [facility] Last Admin: 06/28/20 10:24 Dose: 150 mg Documented by: Enoxaparin Sodium (Lovenox -) 40 mg SQ DAILY [facility] Last Admin: 06/28/20 10:27 Dose: 40 mg Documented by: Ferrous Gluconate (Fergon -) 648 mg PO BID [facility] Last Admin: 06/28/20 10:26 Dose: 648 mg Documented by: Gabapentin (Neurontin -) 400 mg PO QID [facility] Last Admin: 06/28/20 10:24 Dose: 400 mg Documented by: Piperacillin Sod/Tazobactam (Sod 3.375 gm/ Dextrose) 50 mls @ 100 mls/hr IVPB Q8H-IV [facility]; Protocol Last Admin: 06/28/20 10:24 Dose: 100 mls/hr Documented by: Sodium Chloride (Normal Saline -) 1,000 mls @ 150 mls/hr IV ASDIR [facility] Last Admin: 06/27/20 21:51 Dose: Not Given Documented by: Sodium Chloride (Normal Saline -) 1,000 mls @ 125 mls/hr IV ASDIR [facility] Last Admin: 06/27/20 17:36 Dose: 125 mls/hr Documented by: Ipratropium [place] (Atrovent 0.02% Nebulizer -) 1 amp NEB Q6H PRN PRN Reason: Dyspnea Stop: 07/03/20 13:02 Lactobacillus Acidophilus (Bacid -) 1 tab PO DAILY [facility] Last Admin: 06/28/20 10:25 Dose: 1 tab Documented by: Lactulose (Cephulac (Oral Use)) 20 gm PO BID [facility] Last Admin: 06/28/20 10:23 Dose: 20 gm Documented by: Levothyroxine Sodium (Synthroid -) 100 mcg PO 0700 [facility] Last Admin: 06/28/20 06:15 Dose: Not Given Documented by: Lorazepam (Ativan -) 2 mg PO QID [facility] Last Admin: 06/28/20 10:25 Dose: 2 mg Documented by: Pantoprazole Sodium (Protonix -) 40 mg PO DAILY [facility] Last Admin: 06/28/20 10:27 Dose: 40 mg Documented by: Valproate Sodium (Depakene -) 250 mg PO TID [facility] Last Admin: 06/28/20 06:15 Dose: Not Given Documented by: - Objective Vital Signs: Vital Signs Temperature 98.1 F 06/28/20 08:54 Pulse Rate 113 H 06/28/20 08:54 Respiratory Rate 19 06/28/20 09:00 Blood Pressure 114/81 06/28/20 08:54 O2 Sat by Pulse Oximetry (%) 98 06/28/20 09:00 Constitutional: Yes: No Distress, Calm, Obese Cardiovascular: Yes: S1, S2 Respiratory: Yes: Regular, On Nasal O2, Poor Air Entry Gastrointestinal: Yes: Normal Bowel Sounds, Soft Musculoskeletal: Yes: WNL Extremities: Yes: WNL Psychiatric: Yes: Alert Labs: CBC, BMP 06/27/20 16:31 06/27/20 16:31 Assessment/Plan Problem List - Problems (1) ADHD Code(s): F90.9 - ATTENTION-DEFICIT HYPERACTIVITY DISORDER, UNSPECIFIED TYPE (2) Acute respiratory failure with hypoxia Code(s): J96.01 - ACUTE RESPIRATORY FAILURE WITH HYPOXIA (3) Developmental disorder Code(s): F89 - UNSPECIFIED DISORDER OF PSYCHOLOGICAL DEVELOPMENT (4) Pneumonia Code(s): J18.9 - PNEUMONIA, UNSPECIFIED ORGANISM (5) Behavioral disorder Code(s): FDM0283 - Assessment/Plan PNA Sepsis Acute respiratory failure Autism Developmental Delay Asthma 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
[2020-06-28] MEDS ORDERED: PT OWN MED DRAWER 7, Y5N ONE (12:44)
--- NOTE | 2020-06-28 14:36 | PN ---
Teaching Attending Note Name of Resident: Cory Magdaleno ATTENDING PHYSICIAN STATEMENT I saw and evaluated the patient. I reviewed the resident's note and discussed the case with the resident. I agree with the resident's findings and plan as documented. SUBJECTIVE: Minimally verbal, no complaints. Unable to participate meaningfully in medical interview. OBJECTIVE: Afebrile, Hemodynamically stable. Appears comfortable. Generally redirectable. Last Vital Signs Temp Pulse Resp BP Pulse Ox 98.1 F 113 H 19 114/81 98 06/28/20 08:54 06/28/20 08:54 06/28/20 09:00 06/28/20 08:54 06/28/20 09:00 Heart - S1, S2, Tachy Lungs - decreased air entry LLZ Abdomen - high BMI, soft, non-tender. Bowel Sounds normal. Extremities - no edema, no calf tenderness. Neuro - Moving all 4 extremities. Laboratory Results - last 24 hr 06/26/20 06/27/20 06/27/20 00:43 16:31 16:31 WBC 9.8 RBC 4.84 Hgb 13.7 Hct 42.5 MCV 87.9 MCH 28.4 MCHC 32.3 RDW 13.8 Plt Count 311 MPV 8.7 Sodium 142 Potassium 4.2 Chloride 113 H Carbon Dioxide 21 Anion Gap 9 BUN 9.0 Creatinine 1.0 Est GFR (CKD-EPI)AfAm 93.92 Est GFR (CKD-EPI)NonAf 81.04 Random Glucose 100 Calcium 9.0 Magnesium 2.2 TSH 3.29 COVID-19 ([facility]) Not detected Current Medications Generic Name Dose Route Start Last Admin Trade Name Freq PRN Reason Stop Dose Admin Albuterol Sulfate 2 puff 06/26/20 21:15 06/28/20 09:26 Ventolin Hfa Inhaler - IH Not Given Q4H [facility] Bisacodyl 10 mg 06/26/20 18:24 Dulcolax Suppository - RC HS PRN CONSTIPATION Chlorpromazine HCl 200 mg 06/27/20 10:00 06/28/20 10:24 Thorazine - PO 200 mg DAILY [facility] Administration Clonidine 0.1 mg 06/26/20 22:00 06/28/20 10:26 Catapres - PO 0.1 mg BID [facility] Administration Clozapine 100 mg/ Clozapine 50 150 mg 06/26/20 22:00 06/28/20 10:24 mg PO 150 mg BID [facility] Administration Enoxaparin Sodium 40 mg 06/27/20 11:45 06/28/20 10:27 Lovenox - SQ 40 mg DAILY [facility] Administration Ferrous Gluconate 648 mg 06/26/20 22:00 06/28/20 10:26 Fergon - PO 648 mg BID [facility] Administration Gabapentin 400 mg 06/26/20 22:00 06/28/20 10:24 Neurontin - PO 400 mg QID [facility] Administration Piperacillin Sod/Tazobactam 50 mls @ 100 mls/hr 06/26/20 19:00 06/28/20 10:24 Sod 3.375 gm/ Dextrose IVPB 100 mls/hr Q8H-IV [facility] Administration Protocol Ipratropium [place] 1 amp 06/26/20 18:24 Atrovent 0.02% Nebulizer - NEB 07/03/20 13:02 Q6H PRN Dyspnea Lactobacillus Acidophilus 1 tab 06/27/20 10:00 06/28/20 10:25 Bacid - PO 1 tab DAILY [facility] Administration Lactulose 20 gm 06/26/20 22:00 06/28/20 10:23 Cephulac (Oral Use) PO 20 gm BID [facility] Administration Levothyroxine Sodium 100 mcg 06/27/20 07:00 06/28/20 06:15 Synthroid - PO Not Given 0700 [facility] Lorazepam 2 mg 06/26/20 22:00 06/28/20 10:25 Ativan - PO 2 mg QID [facility] Administration Pantoprazole Sodium 40 mg 06/27/20 10:00 06/28/20 10:27 Protonix - PO 40 mg DAILY [facility] Administration Valproate Sodium 250 mg 06/26/20 22:00 06/28/20 06:15 Depakene - PO Not Given TID [facility] Home Medications Medication Instructions Recorded Bisacodyl [Dulcolax] 10 mg RC HS PRN 06/26/20 Chlorpromazine [Thorazine -] 200 mg PO DAILY 06/26/20 Clonidine HCl [Clonidine HCl ER] 0.1 mg PO BID 06/26/20 Clozapine 150 mg PO BID 06/26/20 Ferrous Gluconate [Fergon -] 648 mg PO BID 06/26/20 Gabapentin 400 mg PO QID 06/26/20 LORazepam [Lorazepam] 2 mg PO QID 06/26/20 Lactobacillus Acidophilus 1 each PO DAILY 06/26/20 [Acidophilus] Lactulose 30 mg PO BID 06/26/20 Levothyroxine [Synthroid -] 100 mcg PO DAILY 06/26/20 Medroxyprogesterone Acetate 150 mg IM Q90D 06/26/20 [Depo-Provera] Omeprazole 40 mg PO DAILY 06/26/20 Valproic Acid (As Sodium Salt) 250 mg PO TID 06/26/20 [Valproic Acid] ASSESSMENT AND PLAN: 19 year old female resident at [facility] with history of Autism, ADHD, Developmental Disorder, COVID+(02/2020), 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 CXR - moderate pleural effusion with consolidation/atelectasis of the left lower lobe 1. Acute Hypoxic Respiratory Failure and Sepsis secondary to likely Pneumonia with Parapneumonic effusion repeat CXR shows worsneing effusion and congestive changes. IV fluids held. Continue IV Zosyn Pulm to advise regarding worsening L pleural effusion. Hx COVID 03/15, repeat COVID PCR negative. May require trial of Lasix diuresis - awaiting Pulm and Cardio opinions. 2. Hx of Asthma - no evidence of Asthma exacerbation Received Solumedrol in ED No wheeze currently. Continue Ipratropium Neb PRN (Will hold Albuterol neb for now given tachycardia) No need for steroid therapy. 3. History of Autism, ADHD, Developmental Disorder, Behavioral Disturbance, s/p TEACHER ASST Shunt, ?SD Resumed home meds including Chlorpromazine, Clonidine, Clozapine, Lorazepam, Valproic Acid 4. Hypothyroidism - continue Levothyroxine. TSH wnl. 5. Persistent Tachycardia TSH wnl. Evaluated by Cardiology - recommend Echo. DVT Px - Lovenox SQ.
--- NOTE | 2020-06-28 15:05 | PN ---
Progress Note (short form) - Note Progress Note: Appears comfortable on RA. No acute events overnight. Intake & Output 06/25/20 06/26/20 06/27/20 06/28/20 23:59 23:59 23:59 23:59 Intake Total 240 2835 400 Balance 240 2835 400 Weight 160 lb 221 lb 6.4 oz Last Vital Signs Temp Pulse Resp BP Pulse Ox 98.1 F 113 H 19 114/81 98 06/28/20 08:54 06/28/20 08:54 06/28/20 09:00 06/28/20 08:54 06/28/20 09:00 Active Medications Albuterol Sulfate (Ventolin Hfa Inhaler -) 2 puff IH Q4H [facility] Last Admin: 06/28/20 09:26 Dose: Not Given Documented by: Bisacodyl (Dulcolax Suppository -) 10 mg RC HS PRN PRN Reason: CONSTIPATION Chlorpromazine HCl (Thorazine -) 200 mg PO DAILY [facility] Last Admin: 06/28/20 10:24 Dose: 200 mg Documented by: Clonidine (Catapres -) 0.1 mg PO BID [facility] Last Admin: 06/28/20 10:26 Dose: 0.1 mg Documented by: Clozapine 100 mg/ Clozapine 50 (mg) 150 mg PO BID [facility] Last Admin: 06/28/20 10:24 Dose: 150 mg Documented by: Enoxaparin Sodium (Lovenox -) 40 mg SQ DAILY [facility] Last Admin: 06/28/20 10:27 Dose: 40 mg Documented by: Ferrous Gluconate (Fergon -) 648 mg PO BID [facility] Last Admin: 06/28/20 10:26 Dose: 648 mg Documented by: Gabapentin (Neurontin -) 400 mg PO QID [facility] Last Admin: 06/28/20 10:24 Dose: 400 mg Documented by: Piperacillin Sod/Tazobactam (Sod 3.375 gm/ Dextrose) 50 mls @ 100 mls/hr IVPB Q8H-IV [facility]; Protocol Last Admin: 06/28/20 10:24 Dose: 100 mls/hr Documented by: Ipratropium [place] (Atrovent 0.02% Nebulizer -) 1 amp NEB Q6H PRN PRN Reason: Dyspnea Stop: 07/03/20 13:02 Lactobacillus Acidophilus (Bacid -) 1 tab PO DAILY [facility] Last Admin: 06/28/20 10:25 Dose: 1 tab Documented by: Lactulose (Cephulac (Oral Use)) 20 gm PO BID [facility] Last Admin: 06/28/20 10:23 Dose: 20 gm Documented by: Levothyroxine Sodium (Synthroid -) 100 mcg PO 0700 [facility] Last Admin: 06/28/20 06:15 Dose: Not Given Documented by: Lorazepam (Ativan -) 2 mg PO QID [facility] Last Admin: 06/28/20 10:25 Dose: 2 mg Documented by: Pantoprazole Sodium (Protonix -) 40 mg PO DAILY [facility] Last Admin: 06/28/20 10:27 Dose: 40 mg Documented by: Valproate Sodium (Depakene -) 250 mg PO TID [facility] Last Admin: 06/28/20 06:15 Dose: Not Given Documented by: Gen: NAD Heart: regular Lung: decreased breath sounds at the bases Abd: soft, nontender Ext: no edema Laboratory Results - last 24 hr 06/26/20 06/27/20 06/27/20 00:43 16:31 16:31 WBC 9.8 RBC 4.84 Hgb 13.7 Hct 42.5 MCV 87.9 MCH 28.4 MCHC 32.3 RDW 13.8 Plt Count 311 MPV 8.7 Sodium 142 Potassium 4.2 Chloride 113 H Carbon Dioxide 21 Anion Gap 9 BUN 9.0 Creatinine 1.0 Est GFR (CKD-EPI)AfAm 93.92 Est GFR (CKD-EPI)NonAf 81.04 Random Glucose 100 Calcium 9.0 Magnesium 2.2 TSH 3.29 COVID-19 ([facility]) Not detected A/P Pneumonia Sepsis Tachycardia Asthma Autism - continue antibiotics per ID - O2 to keep SpO2 >90% - DVT prophylaxis - Aspiration precautions Dr Mccord
--- NOTE | 2020-06-28 16:44 | PN ---
Physical Exam: SUBJECTIVE: Patient seen and examined at bedside. Patient denied any current complaints or overnight events. Patient appears comfortable. OBJECTIVE: Vital Signs Period Temp Pulse Resp BP Sys/Gaviria Pulse Ox Last 24 Hr 97.8 F-98.3 F 113-140 19-20 114-137/76-81 96-98 GENERAL: The patient is awake, and, in no acute distress. LUNGS: Breath sounds equal, clear to auscultation bilaterally, no wheezes, no crackles, no accessory muscle use. HEART: Regular rate and rhythm, S1, S2 without murmur, rub or gallop. ABDOMEN: Soft, nontender, nondistended, normoactive bowel sounds, no guarding, no rebound, no hepatosplenomegaly, no masses. EXTREMITIES: 2+ pulses, warm, well-perfused, no edema. Laboratory Results - last 24 hr 06/26/20 06/27/20 06/27/20 00:43 16:31 16:31 WBC 9.8 RBC 4.84 Hgb 13.7 Hct 42.5 MCV 87.9 MCH 28.4 MCHC 32.3 RDW 13.8 Plt Count 311 MPV 8.7 Sodium 142 Potassium 4.2 Chloride 113 H Carbon Dioxide 21 Anion Gap 9 BUN 9.0 Creatinine 1.0 Est GFR (CKD-EPI)AfAm 93.92 Est GFR (CKD-EPI)NonAf 81.04 Random Glucose 100 Calcium 9.0 Magnesium 2.2 TSH 3.29 COVID-19 (CINDY) Not detected Active Medications Generic Name Dose Route Start Last Admin Trade Name Freq PRN Reason Stop Dose Admin Albuterol Sulfate 2 puff 06/26/20 21:15 06/28/20 15:07 Ventolin Hfa Inhaler - IH 2 puff Q4H KENNY Administration Bisacodyl 10 mg 06/26/20 18:24 Dulcolax Suppository - RC HS PRN CONSTIPATION Chlorpromazine HCl 200 mg 06/27/20 10:00 06/28/20 10:24 Thorazine - PO 200 mg DAILY KENNY Administration Clonidine 0.1 mg 06/26/20 22:00 06/28/20 10:26 Catapres - PO 0.1 mg BID KENNY Administration Clozapine 100 mg/ Clozapine 50 150 mg 06/26/20 22:00 06/28/20 10:24 mg PO 150 mg BID KENNY Administration Enoxaparin Sodium 40 mg 06/27/20 11:45 06/28/20 10:27 Lovenox - SQ 40 mg DAILY KENNY Administration Ferrous Gluconate 648 mg 06/26/20 22:00 06/28/20 10:26 Fergon - PO 648 mg BID KENNY Administration Gabapentin 400 mg 06/26/20 22:00 06/28/20 15:08 Neurontin - PO 400 mg QID KENNY Administration Piperacillin Sod/Tazobactam 50 mls @ 100 mls/hr 06/26/20 19:00 06/28/20 10:24 Sod 3.375 gm/ Dextrose IVPB 100 mls/hr Q8H-IV KENNY Administration Protocol Ipratropium [place] 1 amp 06/26/20 18:24 Atrovent 0.02% Nebulizer - NEB 07/03/20 13:02 Q6H PRN Dyspnea Lactobacillus Acidophilus 1 tab 06/27/20 10:00 06/28/20 10:25 Bacid - PO 1 tab DAILY KENNY Administration Lactulose 20 gm 06/26/20 22:00 06/28/20 10:23 Cephulac (Oral Use) PO 20 gm BID KENNY Administration Levothyroxine Sodium 100 mcg 06/27/20 07:00 06/28/20 06:15 Synthroid - PO Not Given 0700 KENNY Lorazepam 2 mg 06/26/20 22:00 06/28/20 15:07 Ativan - PO 2 mg QID KENNY Administration Pantoprazole Sodium 40 mg 06/27/20 10:00 06/28/20 10:27 Protonix - PO 40 mg DAILY KENNY Administration Valproate Sodium 250 mg 06/26/20 22:00 06/28/20 15:08 Depakene - PO 250 mg TID KENNY Administration ASSESSMENT/PLAN: Ms. Mitchell is a 19 year old female w a h/o violent twitches, autism residing at [facility], ADHD, COVID positive in february, v/p shun, hypothyroid who presented to the emergency department for wheezing, shortness of breath and an O2 saturation rate of 85%. CXR - moderate pleural effusion with consolidation/atelectasis of the left lower lobe # Acute Hypoxic Respiratory Failure secondary to ?Pneumonia - CXR shows worsening Parapneumonic effusion and congestive changes - Consulted Pulmonology for worsening effusion - Dr. Mccord - appreciate the recommendations - Fluids were dc'd due to effusion - Zosyn continued - Awaing cardiology consult recommendations #Hx of Asthma - Received Solumedrol in ED - Continue Ipratropium Neb PRN (Will hold Albuterol neb for now given tachycardia) - No need for steroid therapy. #Autism spectrum disorder, Developmental Disorder, Behavioral Disturbance with violent outbursts, s/p [employer]ENT Shunt, ADHD - Patient will continue to take psych medications - Chlorpromazine Typical antipsychotic - Clonidine - clozapine atypical antipsychotic - Lorazepam - anxiety - Valproic acid #Hypothyroidism - the patient will continue Levothyroxine #Persistent Tachycardia Evaluated by Cardiology - recommend Echo. #DVT Px - Lovenox SQ. Visit type - Emergency Visit Emergency Visit: Yes ED Registration Date: 06/26/20 Care time: The patient presented to the Emergency Department on the above date and was hospitalized for further evaluation of their emergent condition. - New Patient This patient is new to me today: No - Critical Care Critical Care patient: No - Discharge Referral Referred to [facility] Med P.C[facility] No ATTENDING PHYSICIAN STATEMENT I saw and evaluated the patient. I reviewed the resident's note and discussed the case with the resident. I agree with the resident's findings and plan as documented. SUBJECTIVE: OBJECTIVE: ASSESSMENT AND PLAN:
[2020-06-28] MEDS ORDERED: FUROSEMIDE 40 MG/4 ML INJECTABLE VIAL IVPUSH ONE (17:11)
[2020-06-29] MEDS ORDERED: DEXTROSE 5%-WATER - 50 ML IVPB ONE ×2 (00:47→09:36)
[2020-06-29] MEDS ORDERED: PIPERACILLIN/TAZOBACTAM 3.375 GM VIAL IVPB ONE ×2 (00:47→09:35)
[2020-06-29] MEDS: ALBUTEROL SO4 HFA INHALER IH SCH ×6 (01:44→21:25)
[2020-06-29] MEDS: PIPERACILLIN/TAZOB 3.375 GM 3.375 GM in DEXTROSE 5%-WATER - 50 ML IVPB SCH ×3 (01:44→11:13)
[2020-06-29] MEDS: LEVOTHYROXINE NA 100 MCG TABLET (FP) PO SCH (06:51)
[2020-06-29] MEDS: VALPROATE SODIUM 250 MG/5 ML UNIT DOSE CUP PO SCH ×3 (06:51→21:28)
--- NOTE | 2020-06-29 08:08 | PN ---
Progress Note, Physician History of Present Illness: pulmonary alert,comfortable,oob-chair,sob improving - Current Medication List Current Medications: Active Medications Albuterol Sulfate (Ventolin Hfa Inhaler -) 2 puff IH Q4H [facility] Last Admin: 06/29/20 06:03 Dose: Not Given Documented by: Bisacodyl (Dulcolax Suppository -) 10 mg RC HS PRN PRN Reason: CONSTIPATION Chlorpromazine HCl (Thorazine -) 200 mg PO DAILY [facility] Last Admin: 06/28/20 10:24 Dose: 200 mg Documented by: Clonidine (Catapres -) 0.1 mg PO BID [facility] Last Admin: 06/28/20 21:23 Dose: 0.1 mg Documented by: Clozapine 100 mg/ Clozapine 50 (mg) 150 mg PO BID [facility] Last Admin: 06/28/20 21:22 Dose: 150 mg Documented by: Enoxaparin Sodium (Lovenox -) 40 mg SQ DAILY [facility] Last Admin: 06/28/20 10:27 Dose: 40 mg Documented by: Ferrous Gluconate (Fergon -) 648 mg PO BID [facility] Last Admin: 06/28/20 21:23 Dose: 648 mg Documented by: Gabapentin (Neurontin -) 400 mg PO QID [facility] Last Admin: 06/28/20 21:23 Dose: 400 mg Documented by: Piperacillin Sod/Tazobactam (Sod 3.375 gm/ Dextrose) 50 mls @ 100 mls/hr IVPB Q8H-IV KENNY; Protocol Last Admin: 06/29/20 01:44 Dose: 100 mls/hr Documented by: Ipratropium [place] (Atrovent 0.02% Nebulizer -) 1 amp NEB Q6H PRN PRN Reason: Dyspnea Stop: 07/03/20 13:02 Lactobacillus Acidophilus (Bacid -) 1 tab PO DAILY [facility] Last Admin: 06/28/20 10:25 Dose: 1 tab Documented by: Lactulose (Cephulac (Oral Use)) 20 gm PO BID [facility] Last Admin: 06/28/20 21:22 Dose: 20 gm Documented by: Levothyroxine Sodium (Synthroid -) 100 mcg PO 0700 [facility] Last Admin: 06/29/20 06:51 Dose: Not Given Documented by: Lorazepam (Ativan -) 2 mg PO QID [facility] Last Admin: 06/28/20 21:22 Dose: 2 mg Documented by: Pantoprazole Sodium (Protonix -) 40 mg PO DAILY [facility] Last Admin: 06/28/20 10:27 Dose: 40 mg Documented by: Valproate Sodium (Depakene -) 250 mg PO TID [facility] Last Admin: 06/29/20 06:51 Dose: Not Given Documented by: - Objective Vital Signs: Vital Signs Temperature 98.1 F 06/29/20 06:00 Pulse Rate 87 06/29/20 06:00 Respiratory Rate 20 06/29/20 06:00 Blood Pressure 133/80 06/29/20 06:00 O2 Sat by Pulse Oximetry (%) 100 06/29/20 06:00 Constitutional: Yes: Well Nourished, Calm Eyes: Yes: WNL HENT: Yes: WNL Neck: Yes: WNL Cardiovascular: Yes: Regular Rate and Rhythm, S1, S2 Respiratory: Yes: Diminished Gastrointestinal: Yes: Normal Bowel Sounds, Soft Extremities: Yes: WNL Edema: No Labs: Problem List - Problems (1) Developmental disorder Code(s): F89 - UNSPECIFIED DISORDER OF PSYCHOLOGICAL DEVELOPMENT (2) Pneumonia Code(s): J18.9 - PNEUMONIA, UNSPECIFIED ORGANISM (3) Asthma exacerbation Code(s): J45.901 - UNSPECIFIED ASTHMA WITH (ACUTE) EXACERBATION (4) SOB (shortness of breath) Code(s): R06.02 - SHORTNESS OF BREATH (5) Behavioral disorder Code(s): UML4414 - Assessment/Plan A/P Pneumonia Sepsis Tachycardia Asthma Autism - continue antibiotics per ID - O2 to keep SpO2 >90% - DVT prophylaxis - Aspiration precautions DR CHOUDHURY
[2020-06-29 09:20] LABS: HEMATOCRIT 42.4 % (32.4-45.2); MEAN CELL VOLUME 84.9 fl (80-96); MEAN PLT VOLUME 7.7 fl (7.5-11.1); PLATELET COUNT 327 K/MM3 (134-434); RBC 4.99 M/mm3 (3.60-5.2); RDW 13.6 % (11.6-15.6); WHITE BLOOD COUNT 7.2 K/mm3 (4.0-10.0)
[2020-06-29] MEDS ORDERED: PT OWN MED DRAWER 7, Y5N ONE ×5 (09:35→21:10)
[2020-06-29] MEDS: PANTOPRAZOLE 40 MG TABLET PO SCH (09:48)
[2020-06-29] MEDS: LACTULOSE 20 GM/30 ML UDC (FOR ORAL USE ONLY) PO SCH ×2 (09:48→21:25)
[2020-06-29] MEDS: LORazepam 1 MG TABLET PO SCH ×4 (09:48→21:24)
[2020-06-29] MEDS: LACTOBACILLUS ACIDOPHILUS 1 TABLET PO SCH (09:49)
[2020-06-29] MEDS: cloNIDine HCL 0.1 MG TABLET PO SCH ×2 (09:50→21:25)
[2020-06-29] MEDS: CLOZAPINE PO SCH ×2 (09:52→21:26)
[2020-06-29] MEDS: ENOXAPARIN NA (PORCINE) 40 MG/0.4 ML DISP.SYRIN SQ SCH (09:54)
[2020-06-29] MEDS: FERROUS GLUCONATE 324 MG TAB (FP) PO SCH ×2 (09:54→21:28)
[2020-06-29] MEDS: GABAPENTIN 400 MG CAPSULE PO SCH ×4 (09:55→21:29)
[2020-06-29 09:56] LABS: BLOOD UREA NITROGEN 9.2 mg/dL (7-18); CALCIUM 9.6 mg/dL (8.5-10.1); CREATININE 1.1 mg/dL (0.55-1.3); MAGNESIUM 2.2 mg/dL (1.8-2.4); POTASSIUM 3.8 mmol/L (3.5-5.1)
--- NOTE | 2020-06-29 10:18 | ECHO ---
Name: ART MONTEMAYOR Exam:Adult Echocardiogram Study Date: 06/28/2020 02:10 PM Age: 19 yrs Reason For Study: Abnormal EKG Height: 62 in Weight: 221 lb BSA: 2.0 m2 MMode/2D Measurements & Calculations LVLd ap4: 6.6 cm SV(MOD-sp4): 14.0 ml EDV(MOD-sp4): 59.0 ml LVLs ap4: 6.9 cm ESV(MOD-sp4): 45.0 ml TAPSE: 1.1 cm Doppler Measurements & Calculations MV E max lynn: 80.9 cm/sec MV dec time: 0.16 sec Tech Comments Could not complete study patient combative. Procedure Limited views obtained with limited diagnostic information.. Patient combative and uncooperative. Left Ventricle The left ventricle is normal in size. Atria The left atrium is not well visualized. Right atrium not well visualized. Mitral Valve There is moderate mitral annular calcification. No significant mitral valve stenosis. Evaluation of regurgitation is inadequate. Tricuspid Valve The tricuspid valve is not well visualized. Aortic Valve The aortic valve is not well visualized. Pulmonic Valve The pulmonic valve is not well visualized. Great Vessels The aortic root is not well visualized. Pericardium/Pleura There is no pericardial effusion. Interpretation Summary Limited views obtained with limited diagnostic information.. Patient combative and uncooperative. The left ventricle is normal in size. LV was incompletely imaged. At least moderate LV systolic dysfu nction is suspected. RV function probably normal. Pleural effusion is noted. Judson Remy 06/29/2020 10:17 AM
[2020-06-29] MEDS: chlorproMAZINE HCL 100 MG TABLET PO SCH (11:44)
--- NOTE | 2020-06-29 12:02 | PN ---
Progress Note, Physician History of Present Illness: stable no new issues - Current Medication List Current Medications: Active Medications Albuterol Sulfate (Ventolin Hfa Inhaler -) 2 puff IH Q4H [facility] BEDS AT [facility] Last Admin: 06/29/20 09:49 Dose: 2 puff Documented by: Bisacodyl (Dulcolax Suppository -) 10 mg RC HS PRN PRN Reason: CONSTIPATION Chlorpromazine HCl (Thorazine -) 200 mg PO DAILY [facility]S [facility]CLUDE 234 BEDS AT [facility] Last Admin: 06/29/20 11:44 Dose: 200 mg Documented by: Clonidine (Catapres -) 0.1 mg PO BID COUNTS INCLUDE 234 BEDS AT THE [facility] Last Admin: 06/29/20 09:50 Dose: 0.1 mg Documented by: Clozapine 100 mg/ Clozapine 50 (mg) 150 mg PO BID [facility]S INCLUDE 234 BEDS AT [facility] Last Admin: 06/29/20 09:52 Dose: 150 mg Documented by: Enoxaparin Sodium (Lovenox -) 40 mg SQ DAILY [facility]S INCLUDE 234 BEDS AT [facility] Last Admin: 06/29/20 09:54 Dose: 40 mg Documented by: Ferrous Gluconate (Fergon -) 648 mg PO BID [facility]S INCLUDE 234 BEDS AT [facility] Last Admin: 06/29/20 09:54 Dose: 648 mg Documented by: Gabapentin (Neurontin -) 400 mg PO QID [facility]S INCLUDE 234 BEDS AT [facility] Last Admin: 06/29/20 09:55 Dose: 400 mg Documented by: Piperacillin Sod/Tazobactam (Sod 3.375 gm/ Dextrose) 50 mls @ 100 mls/hr IVPB Q8H-IV COUNTS INCLUDE 234 BEDS AT THE [facility]; Protocol Last Admin: 06/29/20 11:13 Dose: Not Given Documented by: Ipratropium [place] (Atrovent 0.02% Nebulizer -) 1 amp NEB Q6H PRN PRN Reason: Dyspnea Stop: 07/03/20 13:02 Lactobacillus Acidophilus (Bacid -) 1 tab PO DAILY [facility] INCLUDE 234 BEDS AT [facility] Last Admin: 06/29/20 09:49 Dose: 1 tab Documented by: Lactulose (Cephulac (Oral Use)) 20 gm PO BID COUNTS INCLUDE 234 BEDS AT THE [facility] Last Admin: 06/29/20 09:48 Dose: 20 gm Documented by: Levothyroxine Sodium (Synthroid -) 100 mcg PO 0700 [facility]S INCLUDE 234 BEDS AT THE [facility] Last Admin: 06/29/20 06:51 Dose: Not Given Documented by: Lorazepam (Ativan -) 2 mg PO QID [facility]S INCLUDE 234 BEDS AT [facility] Last Admin: 06/29/20 09:48 Dose: 2 mg Documented by: Pantoprazole Sodium (Protonix -) 40 mg PO DAILY [facility]S INCLUDE 234 BEDS AT [facility] Last Admin: 06/29/20 09:48 Dose: 40 mg Documented by: Valproate Sodium (Depakene -) 250 mg PO TID [facility]S INCLUDE 234 BEDS AT [facility] Last Admin: 06/29/20 06:51 Dose: Not Given Documented by: - Objective Vital Signs: Vital Signs Temperature 98.0 F 06/29/20 10:38 Pulse Rate 134 H 06/29/20 10:38 Respiratory Rate 18 06/29/20 10:38 Blood Pressure 121/88 06/29/20 10:38 O2 Sat by Pulse Oximetry (%) 99 06/29/20 10:38 Constitutional: Yes: No Distress, Calm Cardiovascular: Yes: S1, S2 Respiratory: Yes: Regular, Poor Air Entry Gastrointestinal: Yes: Normal Bowel Sounds, Soft Musculoskeletal: Yes: WNL Extremities: Yes: WNL Neurological: Yes: Alert Psychiatric: Yes: Alert Labs: CBC, BMP 06/29/20 09:00 06/29/20 09:00 Assessment/Plan Problem List - Problems (1) ADHD Code(s): F90.9 - ATTENTION-DEFICIT HYPERACTIVITY DISORDER, UNSPECIFIED TYPE (2) Acute respiratory failure with hypoxia Code(s): J96.01 - ACUTE RESPIRATORY FAILURE WITH HYPOXIA (3) Developmental disorder Code(s): F89 - UNSPECIFIED DISORDER OF PSYCHOLOGICAL DEVELOPMENT (4) Pneumonia Code(s): J18.9 - PNEUMONIA, UNSPECIFIED ORGANISM (5) Behavioral disorder Code(s): LQK0251 - Assessment/Plan PNA Sepsis Acute respiratory failure Autism Developmental Delay Asthma s/p WORT EXTRACTOR shunt plan continue abx wbc has normalized will d/w the team rest as per the team
--- NOTE | 2020-06-29 12:43 | PN ---
Progress Note (short form) - Note Progress Note: cc: sob, wheezing hpi: unable to obtain HPI, ros due to patient not communicative Current Medications Generic Name Dose Route Start Last Admin Trade Name Freq PRN Reason Stop Dose Admin Albuterol Sulfate 2 puff 06/26/20 21:15 06/29/20 09:49 Ventolin Hfa Inhaler - IH 2 puff Q4H KENNY Administration Bisacodyl 10 mg 06/26/20 18:24 Dulcolax Suppository - RC HS PRN CONSTIPATION Chlorpromazine HCl 200 mg 06/27/20 10:00 06/29/20 11:44 Thorazine - PO 200 mg DAILY KENNY Administration Clonidine 0.1 mg 06/26/20 22:00 06/29/20 09:50 Catapres - PO 0.1 mg BID KENNY Administration Clozapine 100 mg/ Clozapine 50 150 mg 06/26/20 22:00 06/29/20 09:52 mg PO 150 mg BID KENNY Administration Enoxaparin Sodium 40 mg 06/27/20 11:45 06/29/20 09:54 Lovenox - SQ 40 mg DAILY KENNY Administration Ferrous Gluconate 648 mg 06/26/20 22:00 06/29/20 09:54 Fergon - PO 648 mg BID KENNY Administration Gabapentin 400 mg 06/26/20 22:00 06/29/20 09:55 Neurontin - PO 400 mg QID KENNY Administration Piperacillin Sod/Tazobactam 50 mls @ 100 mls/hr 06/26/20 19:00 06/29/20 11:13 Sod 3.375 gm/ Dextrose IVPB Not Given Q8H-IV KENNY Protocol Ipratropium [place] 1 amp 06/26/20 18:24 Atrovent 0.02% Nebulizer - NEB 07/03/20 13:02 Q6H PRN Dyspnea Lactobacillus Acidophilus 1 tab 06/27/20 10:00 06/29/20 09:49 Bacid - PO 1 tab DAILY KENNY Administration Lactulose 20 gm 06/26/20 22:00 06/29/20 09:48 Cephulac (Oral Use) PO 20 gm BID KENNY Administration Levothyroxine Sodium 100 mcg 06/27/20 07:00 06/29/20 06:51 Synthroid - PO Not Given 0700 KENNY Lorazepam 2 mg 06/26/20 22:00 06/29/20 09:48 Ativan - PO 2 mg QID KENNY Administration Pantoprazole Sodium 40 mg 06/27/20 10:00 06/29/20 09:48 Protonix - PO 40 mg DAILY KENNY Administration Valproate Sodium 250 mg 06/26/20 22:00 06/29/20 06:51 Depakene - PO Not Given TID KENNY Vital Signs Period Temp Pulse Resp BP Sys/Gaviria Pulse Ox Last 24 Hr 92.8 F-98.1 F 87-134 18-20 109-148/72-100 99-100 nad no jvd tachy, regular, s1s2 no mrg cta ant poor eff lethargic abd nt nd pos bs no jaundice diaphoresis +dp pt no carotid bruit ecg: sinus tachy, nl intervals, no ischemic changes cxr: left eff tele: sr, sinus tachy echo 06/2020 limited views patient combative. at least moderate LV systolic dysfunction suspected, not completely imaged. RV function probably normal. 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 sinus tachy: -tele and ecg show sinus tachy, no arrhythmias -tsh wnl -? LV systolic dysfunction on echo although incomplete due to lack of patient cooperation, incompletely imaged - defer further imaging at this time as patient unlikely to be able to cooperate with studies -likely due to acute issues, manage per primary sob, asthma, pleural eff, pna: -on abx, albuterol, pulm following
--- NOTE | 2020-06-29 14:18 | PN ---
Teaching Attending Note Name of Resident: Cory Magdaleno ATTENDING PHYSICIAN STATEMENT I saw and evaluated the patient. I reviewed the resident's note and discussed the case with the resident. I agree with the resident's findings and plan as documented. SUBJECTIVE: And examined at bedside. Alert and oriented x1. Patient remains consistently tachycardic. Will get CT chest without contrast to evaluate size of pleural effusion and evaluate for possible drainage. OBJECTIVE: Last Vital Signs Temp Pulse Resp BP Pulse Ox 98.0 F 134 H 18 121/88 99 06/29/20 10:38 06/29/20 10:38 06/29/20 10:38 06/29/20 10:38 06/29/20 10:38 PE: Per resident note Labs/Imaging: reviewed ASSESSMENT AND PLAN: 19 year old female resident at [facility] with history of Autism, ADHD, Developmental Disorder, COVID+(02/2020), s/p TRANSCRIBER Shunt, Hypothyroidism, presents with increasing SOB/wheeze reported desaturation to 85% on RA as per EMS. CXR - moderate pleural effusion with consolidation/atelectasis of the left lower lobe #Acute Hypoxic Respiratory Failure and Sepsis secondary to likely Pneumonia with Parapneumonic effusion repeat CXR shows worsneing effusion and congestive changes. -pulm on board: appreciate recs -Will get CT chest without contrast to evaluate size of pleural effusion and evaluate for possible drainage. -switch to augmentin per ID #Persistent Sinus Tachycardia TSH within normal limits. Patient does not tolerate echocardiogram due to underlying mental condition. May represent effect of growing pleural effusion CT chest as above to evaluate effusion. # Hx of Asthma - no evidence of Asthma exacerbation Received Solumedrol in ED No wheeze currently. Continue Ipratropium Neb PRN (Will hold Albuterol neb for now given tachycardia) No need for steroid therapy. # History of Autism, ADHD, Developmental Disorder, Behavioral Disturbance, s/p TRANSCRIBER Shunt, ?SD Resumed home meds including Chlorpromazine, Clonidine, Clozapine, Lorazepam, Valproic Acid # Hypothyroidism - continue Levothyroxine. TSH wnl. DVT Px - Lovenox SQ.
[2020-06-29 14:58] VITALS: BMI 40.6
--- NOTE | 2020-06-29 16:02 | PN ---
Physical Exam: SUBJECTIVE: Patient seen and examined at bedside with aid. The patient appears comfortable at bedside and has no overnight complaints. OBJECTIVE: Vital Signs Period Temp Pulse Resp BP Sys/Gaviria Pulse Ox Last 24 Hr 92.8 F-98.1 F 87-134 18-20 106-148/60-100 99-100 GENERAL: The patient is awake, alert, and fully oriented, in no acute distress. LUNGS: Breath sounds equal, clear to auscultation bilaterally, no wheezes, no crackles, no accessory muscle use. HEART: Regular rate and rhythm, S1, S2 without murmur, rub or gallop. ABDOMEN: Soft, nontender, nondistended, normoactive bowel sounds, no guarding, no rebound, no hepatosplenomegaly, no masses. EXTREMITIES: 2+ pulses, warm, well-perfused, no edema. SKIN: Warm, dry, normal turgor, no rashes or lesions noted Laboratory Results - last 24 hr 06/29/20 06/29/20 09:00 09:00 WBC 7.2 RBC 4.99 Hgb 14.0 Hct 42.4 MCV 84.9 MCH 28.0 MCHC 33.0 RDW 13.6 Plt Count 327 MPV 7.7 D Sodium 143 Potassium 3.8 Chloride 110 H Carbon Dioxide 23 Anion Gap 9 BUN 9.2 Creatinine 1.1 Est GFR (CKD-EPI)AfAm 83.70 Est GFR (CKD-EPI)NonAf 72.22 Random Glucose 92 Calcium 9.6 Phosphorus 5.0 H Magnesium 2.2 Active Medications Generic Name Dose Route Start Last Admin Trade Name Freq PRN Reason Stop Dose Admin Albuterol Sulfate 2 puff 06/26/20 21:15 06/29/20 13:40 Ventolin Hfa Inhaler - IH 2 puff Q4H KENNY Administration Amoxicillin/Clavulanate Potassium 1 tab 06/29/20 17:30 Augmentin - 875mg Tablet PO BID@0800,1730 KENNY Bisacodyl 10 mg 06/26/20 18:24 Dulcolax Suppository - RC HS PRN CONSTIPATION Chlorpromazine HCl 200 mg 06/27/20 10:00 06/29/20 11:44 Thorazine - PO 200 mg DAILY KENNY Administration Clonidine 0.1 mg 06/26/20 22:00 06/29/20 09:50 Catapres - PO 0.1 mg BID KENNY Administration Clozapine 100 mg/ Clozapine 50 150 mg 06/26/20 22:00 06/29/20 09:52 mg PO 150 mg BID KENNY Administration Enoxaparin Sodium 40 mg 06/27/20 11:45 06/29/20 09:54 Lovenox - SQ 40 mg DAILY KENNY Administration Ferrous Gluconate 648 mg 06/26/20 22:00 06/29/20 09:54 Fergon - PO 648 mg BID KENNY Administration Gabapentin 400 mg 06/26/20 22:00 06/29/20 13:40 Neurontin - PO 400 mg QID KENNY Administration Ipratropium [place] 1 amp 06/26/20 18:24 Atrovent 0.02% Nebulizer - NEB 07/03/20 13:02 Q6H PRN Dyspnea Lactobacillus Acidophilus 1 tab 06/27/20 10:00 06/29/20 09:49 Bacid - PO 1 tab DAILY KENNY Administration Lactulose 20 gm 06/26/20 22:00 06/29/20 09:48 Cephulac (Oral Use) PO 20 gm BID KENNY Administration Levothyroxine Sodium 100 mcg 06/27/20 07:00 06/29/20 06:51 Synthroid - PO Not Given 0700 KENNY Lorazepam 2 mg 06/26/20 22:00 06/29/20 13:40 Ativan - PO 2 mg QID KENNY Administration Pantoprazole Sodium 40 mg 06/27/20 10:00 06/29/20 09:48 Protonix - PO 40 mg DAILY KENNY Administration Valproate Sodium 250 mg 06/26/20 22:00 06/29/20 14:32 Depakene - PO 250 mg TID KENNY Administration ASSESSMENT/PLAN: Ms. Mitchell is a 19 year old female w a h/o violent twitches, autism residing at [facility], ADHD, COVID positive in february, v/p shun, hypothyroid who presented to the emergency department for wheezing, shortness of breath and an O2 saturation rate of 85%. CXR - moderate pleural effusion with consolidation/atelectasis of the left lower lobe # Acute Hypoxic Respiratory Failure secondary to ?Pneumonia - CXR shows worsening Parapneumonic effusion and congestive changes - Consulted Pulmonology for worsening effusion - Dr. Bhakta - appreciate the recommendations - Fluids were dc'd due to effusion - Patients IV in foot ceased to work - switching to PO antibiotics - DC zosyn starting on augmentin 875 BID #Hx of Asthma - Continue Ipratropium Neb PRN (Will hold Albuterol neb for now given tachycardia) - No need for steroid therapy. 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 - Possible reason for growing pleural effusion CT chest for effusion gauge #DVT Px - Lovenox SQ. Visit type - Emergency Visit Emergency Visit: Yes ED Registration Date: 06/26/20 Care time: The patient presented to the Emergency Department on the above date and was hospitalized for further evaluation of their emergent condition. - New Patient This patient is new to me today: No - Critical Care Critical Care patient: No - Discharge Referral Referred to [facility] Med P.C.: No ATTENDING PHYSICIAN STATEMENT I saw and evaluated the patient. I reviewed the resident's note and discussed the case with the resident. I agree with the resident's findings and plan as documented. SUBJECTIVE: OBJECTIVE: ASSESSMENT AND PLAN:
[2020-06-29] MEDS: AMOX TR/POT CLAV 875MG/125MG TABLETS (FP) PO SCH (17:46)
[2020-06-30] MEDS: ALBUTEROL SO4 HFA INHALER IH SCH ×6 (01:01→21:20)
[2020-06-30] MEDS: VALPROATE SODIUM 250 MG/5 ML UNIT DOSE CUP PO SCH ×3 (06:09→21:22)
[2020-06-30] MEDS: LEVOTHYROXINE NA 100 MCG TABLET (FP) PO SCH (06:09)
[2020-06-30] MEDS: AMOX TR/POT CLAV 875MG/125MG TABLETS (FP) PO SCH ×2 (08:13→17:22)
--- NOTE | 2020-06-30 09:58 | PN ---
Progress Note, Physician History of Present Illness: stable doing well - Current Medication List Current Medications: Active Medications Albuterol Sulfate (Ventolin Hfa Inhaler -) 2 puff IH Q4H [facility] Last Admin: 06/30/20 06:09 Dose: Not Given Documented by: Amoxicillin/Clavulanate Potassium (Augmentin - 875mg Tablet) 1 tab PO BID@0800,1730 [facility] Last Admin: 06/30/20 08:13 Dose: 1 tab Documented by: Bisacodyl (Dulcolax Suppository -) 10 mg RC HS PRN PRN Reason: CONSTIPATION Chlorpromazine HCl (Thorazine -) 200 mg PO DAILY [facility] Last Admin: 06/29/20 11:44 Dose: 200 mg Documented by: Clonidine (Catapres -) 0.1 mg PO BID [facility] Last Admin: 06/29/20 21:25 Dose: 0.1 mg Documented by: Clozapine 100 mg/ Clozapine 50 (mg) 150 mg PO BID [facility] Last Admin: 06/29/20 21:26 Dose: 150 mg Documented by: Enoxaparin Sodium (Lovenox -) 40 mg SQ DAILY [facility] Last Admin: 06/29/20 09:54 Dose: 40 mg Documented by: Ferrous Gluconate (Fergon -) 648 mg PO BID [facility] Last Admin: 06/29/20 21:28 Dose: 648 mg Documented by: Gabapentin (Neurontin -) 400 mg PO QID [facility] Last Admin: 06/29/20 21:29 Dose: 400 mg Documented by: Ipratropium [place] (Atrovent 0.02% Nebulizer -) 1 amp NEB Q6H PRN PRN Reason: Dyspnea Stop: 07/03/20 13:02 Lactobacillus Acidophilus (Bacid -) 1 tab PO DAILY [facility] Last Admin: 06/29/20 09:49 Dose: 1 tab Documented by: Lactulose (Cephulac (Oral Use)) 20 gm PO BID [facility] Last Admin: 06/29/20 21:25 Dose: 20 gm Documented by: Levothyroxine Sodium (Synthroid -) 100 mcg PO 0700 [facility] Last Admin: 06/30/20 06:09 Dose: 100 mcg Documented by: Lorazepam (Ativan -) 2 mg PO QID [facility] Last Admin: 06/29/20 21:24 Dose: 2 mg Documented by: Pantoprazole Sodium (Protonix -) 40 mg PO DAILY [facility] Last Admin: 06/29/20 09:48 Dose: 40 mg Documented by: Valproate Sodium (Depakene -) 250 mg PO TID [facility] Last Admin: 06/30/20 06:09 Dose: 250 mg Documented by: - Objective Vital Signs: Vital Signs Temperature 98.9 F 06/30/20 06:00 Pulse Rate 112 H 06/30/20 06:00 Respiratory Rate 20 06/30/20 06:00 Blood Pressure 142/93 06/30/20 06:00 O2 Sat by Pulse Oximetry (%) 98 06/29/20 22:00 Constitutional: Yes: No Distress, Calm Cardiovascular: Yes: S1, S2 Respiratory: Yes: Regular, CTA Bilaterally Gastrointestinal: Yes: Normal Bowel Sounds, Soft Musculoskeletal: Yes: WNL Extremities: Yes: WNL Neurological: Yes: Alert Psychiatric: Yes: Alert Labs: CBC, BMP 06/29/20 09:00 06/29/20 09:00 Assessment/Plan Problem List - Problems (1) ADHD Code(s): F90.9 - ATTENTION-DEFICIT HYPERACTIVITY DISORDER, UNSPECIFIED TYPE (2) Acute respiratory failure with hypoxia Code(s): J96.01 - ACUTE RESPIRATORY FAILURE WITH HYPOXIA (3) Developmental disorder Code(s): F89 - UNSPECIFIED DISORDER OF PSYCHOLOGICAL DEVELOPMENT (4) Pneumonia Code(s): J18.9 - PNEUMONIA, UNSPECIFIED ORGANISM (5) Behavioral disorder Code(s): JAQ4657 - Assessment/Plan PNA Sepsis Acute respiratory failure Autism Developmental Delay Asthma 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
[2020-06-30] MEDS ORDERED: PT OWN MED DRAWER 7, Y5N ONE ×2 (10:11→20:42)
[2020-06-30] MEDS: PANTOPRAZOLE 40 MG TABLET PO SCH (10:13)
[2020-06-30] MEDS: LACTOBACILLUS ACIDOPHILUS 1 TABLET PO SCH (10:13)
[2020-06-30] MEDS: LORazepam 1 MG TABLET PO SCH ×4 (10:13→21:20)
[2020-06-30] MEDS: chlorproMAZINE HCL 100 MG TABLET PO SCH (10:14)
[2020-06-30] MEDS: CLOZAPINE PO SCH ×2 (10:14→21:22)
[2020-06-30] MEDS: FERROUS GLUCONATE 324 MG TAB (FP) PO SCH ×2 (10:14→21:22)
[2020-06-30] MEDS: cloNIDine HCL 0.1 MG TABLET PO SCH ×2 (10:14→21:21)
[2020-06-30] MEDS: GABAPENTIN 400 MG CAPSULE PO SCH ×4 (10:14→21:22)
--- NOTE | 2020-06-30 11:51 | PN ---
Progress Note (short form) - Note Progress Note: cc: sob, wheezing hpi: unable to obtain HPI, ros due to patient not communicative. Current Medications Generic Name Dose Route Start Last Admin Trade Name Freq PRN Reason Stop Dose Admin Albuterol Sulfate 2 puff 06/26/20 21:15 06/30/20 10:13 Ventolin Hfa Inhaler - IH 2 puff Q4H [facility] Administration Amoxicillin/Clavulanate Potassium 1 tab 06/29/20 17:30 06/30/20 08:13 Augmentin - 875mg Tablet PO 1 tab BID@0800,1730 [facility] Administration Bisacodyl 10 mg 06/26/20 18:24 Dulcolax Suppository - RC HS PRN CONSTIPATION Chlorpromazine HCl 200 mg 06/27/20 10:00 06/30/20 10:14 Thorazine - PO 200 mg DAILY [facility] Administration Clonidine 0.1 mg 06/26/20 22:00 06/30/20 10:14 Catapres - PO 0.1 mg BID KENNY Administration Clozapine 100 mg/ Clozapine 50 150 mg 06/26/20 22:00 06/30/20 10:14 mg PO 150 mg BID [facility] Administration Enoxaparin Sodium 40 mg 06/27/20 11:45 06/29/20 09:54 Lovenox - SQ 40 mg DAILY [facility] Administration Ferrous Gluconate 648 mg 06/26/20 22:00 06/30/20 10:14 Fergon - PO 648 mg BID [facility] Administration Gabapentin 400 mg 06/26/20 22:00 06/30/20 10:14 Neurontin - PO 400 mg QID [facility] Administration Ipratropium [place] 1 amp 06/26/20 18:24 Atrovent 0.02% Nebulizer - NEB 07/03/20 13:02 Q6H PRN Dyspnea Lactobacillus Acidophilus 1 tab 06/27/20 10:00 06/30/20 10:13 Bacid - PO 1 tab DAILY [facility] Administration Lactulose 20 gm 06/26/20 22:00 06/29/20 21:25 Cephulac (Oral Use) PO 20 gm BID [facility] Administration Levothyroxine Sodium 100 mcg 06/27/20 07:00 06/30/20 06:09 Synthroid - PO 100 mcg 0700 [facility] Administration Lorazepam 2 mg 06/26/20 22:00 06/30/20 10:13 Ativan - PO 2 mg QID [facility] Administration Pantoprazole Sodium 40 mg 06/27/20 10:00 06/30/20 10:13 Protonix - PO 40 mg DAILY [facility] Administration Valproate Sodium 250 mg 06/26/20 22:00 06/30/20 06:09 Depakene - PO 250 mg TID [facility] Administration Vital Signs Period Temp Pulse Resp BP Sys/Gaviria Pulse Ox Last 24 Hr 97.8 F-98.9 F 112-131 18-20 106-152/60-101 96-98 nad no jvd tachy, regular, s1s2 no mrg cta ant poor eff lethargic abd nt nd pos bs no jaundice diaphoresis +dp pt no carotid bruit ecg: sinus tachy, nl intervals, no ischemic changes cxr: left eff tele: sr, sinus tachy echo 06/2020 limited views patient combative. at least moderate LV systolic dysfunction suspected, not completely imaged. RV function probably normal. pleural effusion nl a/p: 19 f hx autism, vp data shunt, asthma sent from [place] for sob, wheezing. sinus tachy: -tele and ecg show sinus tachy, no arrhythmias -tsh wnl -echo read suggests ? LV systolic dysfunction on echo although incomplete due to lack of patient cooperation, incompletely imaged - reviewed images from echo, extremely limited views. unable to assess LV function due to incomplete study and unable to visualize LV endocardial borders on images obtained. pleural effusion well visualized also noted on CT chest - defer further cardiac imaging at this time as patient unlikely to be able to cooperate with studies unless under sedation -likely due to underlying acute issues, manage per primary - defer delfino blocking agent at this point sob, asthma, pleural eff, pna: -on abx, albuterol, pulm following
[2020-06-30 12:07] LABS: HEMATOCRIT 41.7 % (32.4-45.2); MCH 28.8 pg (25.7-33.7); MCHC 33.7 g/dl (32.0-36.0); MEAN CELL VOLUME 85.5 fl (80-96); MEAN PLT VOLUME 7.8 fl (7.5-11.1); PLATELET COUNT 329 K/MM3 (134-434); RBC 4.87 M/mm3 (3.60-5.2); RDW 13.6 % (11.6-15.6); WHITE BLOOD COUNT 9.2 K/mm3 (4.0-10.0)
[2020-06-30 12:15] LABS: INR 0.97 (0.83-1.09); PROTHROMBIN TIME (PATIENT) 11.5 SEC (9.7-13.0)
[2020-06-30 12:49] LABS: BLOOD UREA NITROGEN 8.3 mg/dL (7-18); CALCIUM 9.7 mg/dL (8.5-10.1); CREATININE 0.9 mg/dL (0.55-1.3); MAGNESIUM 2.2 mg/dL (1.8-2.4); PHOSPHOROUS 4.6 mg/dL (2.5-4.9); POTASSIUM 3.8 mmol/L (3.5-5.1)
--- NOTE | 2020-06-30 14:04 | PN ---
Progress Note, Physician History of Present Illness: pulmonary sleeping ,-resp distress,pt scheduled fot thoracentesis left pleural effusion. pt remains tachycardic - Current Medication List Current Medications: Active Medications Albuterol Sulfate (Ventolin Hfa Inhaler -) 2 puff IH Q4H [facility] Last Admin: 06/30/20 10:13 Dose: 2 puff Documented by: Amoxicillin/Clavulanate Potassium (Augmentin - 875mg Tablet) 1 tab PO BID@0800,1730 [facility] Last Admin: 06/30/20 08:13 Dose: 1 tab Documented by: Bisacodyl (Dulcolax Suppository -) 10 mg RC HS PRN PRN Reason: CONSTIPATION Chlorpromazine HCl (Thorazine -) 200 mg PO DAILY [facility] Last Admin: 06/30/20 10:14 Dose: 200 mg Documented by: Clonidine (Catapres -) 0.1 mg PO BID [facility] Last Admin: 06/30/20 10:14 Dose: 0.1 mg Documented by: Clozapine 100 mg/ Clozapine 50 (mg) 150 mg PO BID [facility] Last Admin: 06/30/20 10:14 Dose: 150 mg Documented by: Enoxaparin Sodium (Lovenox -) 40 mg SQ DAILY [facility] Last Admin: 06/29/20 09:54 Dose: 40 mg Documented by: Ferrous Gluconate (Fergon -) 648 mg PO BID [facility] Last Admin: 06/30/20 10:14 Dose: 648 mg Documented by: Gabapentin (Neurontin -) 400 mg PO QID [facility] Last Admin: 06/30/20 10:14 Dose: 400 mg Documented by: Ipratropium [place] (Atrovent 0.02% Nebulizer -) 1 amp NEB Q6H PRN PRN Reason: Dyspnea Stop: 07/03/20 13:02 Lactobacillus Acidophilus (Bacid -) 1 tab PO DAILY [facility] Last Admin: 06/30/20 10:13 Dose: 1 tab Documented by: Lactulose (Cephulac (Oral Use)) 20 gm PO BID [facility] Last Admin: 06/29/20 21:25 Dose: 20 gm Documented by: Levothyroxine Sodium (Synthroid -) 100 mcg PO 0700 [facility] Last Admin: 06/30/20 06:09 Dose: 100 mcg Documented by: Lorazepam (Ativan -) 2 mg PO QID [facility] Last Admin: 06/30/20 10:13 Dose: 2 mg Documented by: Pantoprazole Sodium (Protonix -) 40 mg PO DAILY [facility] Last Admin: 06/30/20 10:13 Dose: 40 mg Documented by: Valproate Sodium (Depakene -) 250 mg PO TID [facility] Last Admin: 06/30/20 06:09 Dose: 250 mg Documented by: - Objective Vital Signs: Vital Signs Temperature 98.9 F 06/30/20 10:30 Pulse Rate 114 H 06/30/20 10:30 Respiratory Rate 18 06/30/20 10:30 Blood Pressure 152/101 H 06/30/20 10:30 O2 Sat by Pulse Oximetry (%) 96 06/30/20 10:30 Constitutional: Yes: Well Nourished, Other (sleeping) Eyes: Yes: WNL HENT: Yes: WNL Neck: Yes: WNL Cardiovascular: Yes: Tachycardia, S1, S2 Respiratory: Yes: Diminished Extremities: Yes: WNL Edema: No Labs: CBC, BMP 06/30/20 11:51 06/30/20 11:51 INR, PTT INR 0.97 (0.83-1.09) 06/30/20 11:51 Problem List - Problems (1) Developmental disorder Code(s): F89 - UNSPECIFIED DISORDER OF PSYCHOLOGICAL DEVELOPMENT (2) Pneumonia Code(s): J18.9 - PNEUMONIA, UNSPECIFIED ORGANISM (3) Asthma exacerbation Code(s): J45.901 - UNSPECIFIED ASTHMA WITH (ACUTE) EXACERBATION (4) SOB (shortness of breath) Code(s): R06.02 - SHORTNESS OF BREATH (5) Behavioral disorder Code(s): TML3517 - Assessment/Plan A/P Pneumonia large left pleural effusion tachycardia Sepsis Tachycardia Asthma Autism - continue antibiotics per ID - diagnostic/therapeutic thoracentesis - O2 to keep SpO2 >90% - DVT prophylaxis - Aspiration precautions DR CHOUDHURY
[2020-06-30] MEDS: LACTULOSE 20 GM/30 ML UDC (FOR ORAL USE ONLY) PO SCH ×2 (14:05→21:21)
[2020-06-30] MEDS: ENOXAPARIN NA (PORCINE) 40 MG/0.4 ML DISP.SYRIN SQ SCH (14:05)
--- NOTE | 2020-06-30 14:22 | PN ---
Teaching Attending Note Name of Resident: Cory Magdaleno ATTENDING PHYSICIAN STATEMENT I saw and evaluated the patient. I reviewed the resident's note and discussed the case with the resident. I agree with the resident's findings and plan as documented. SUBJECTIVE: And examined at bedside. Condition unchanged. Once unable to tolerate tho racentesis today. Will try again under sedation potentially tomorrow or later today. CT shows that ASSOCIATE TECHNICIAN shunt goes into the pleural cavity, also attempting to get further information regarding its placement OBJECTIVE: Last Vital Signs Temp Pulse Resp BP Pulse Ox 98.9 F 114 H 18 152/101 H 96 06/30/20 10:30 06/30/20 10:30 06/30/20 10:30 06/30/20 10:30 06/30/20 10:30 PE: Per resident note Labs/Imaging: reviewed ASSESSMENT AND PLAN: 19 year old female resident at [facility] with history of Autism, ADHD, Developmental Disorder, COVID+(02/2020), s/p ASSOCIATE TECHNICIAN Shunt, Hypothyroidism, presents with increasing SOB/wheeze reported desaturation to 85% on RA as per EMS. CXR - moderate pleural effusion with consolidation/atelectasis of the left lower lobe #Acute Hypoxic Respiratory Failure and Sepsis secondary to likely Pneumonia with Parapneumonic effusion vs collection from ASSOCIATE TECHNICIAN shunt CT shows large left pleural effusion with compressive atelectasis. Will require drainage. Patient has ventriculopleural shunts. Unclear if the cause of the effusion is due to the shunt or pneumonia IR to drain and obtain studies to determine etiology of effusion -switch to augmentin per ID #Persistent Sinus Tachycardia TSH within normal limits. Patient does not tolerate echocardiogram due to underlying mental condition. May represent effect of growing pleural effusion # Hx of Asthma - no evidence of Asthma exacerbation Received Solumedrol in ED No wheeze currently. Continue Ipratropium Neb PRN (Will hold Albuterol neb for now given tachycardia) No need for steroid therapy. # History of Autism, ADHD, Developmental Disorder, Behavioral Disturbance, s/p ASSOCIATE TECHNICIAN Shunt, ?SD Resumed home meds including Chlorpromazine, Clonidine, Clozapine, Lorazepam, Valproic Acid # Hypothyroidism - continue Levothyroxine. TSH wnl. DVT Px - Lovenox SQ.
--- NOTE | 2020-06-30 20:46 | PN ---
Physical Exam: SUBJECTIVE: Patient seen and examined at bedside with aid. The patient appears comfortable at bedside and has no overnight complaints. Patient was found to have one ventriculo peritoneal shunt drain and a second ventriculo pleural drain. Discussed with IR and Neurosurgery for possible surgical intervention due to fluid build up. OBJECTIVE: Vital Signs Period Temp Pulse Resp BP Sys/Gaviria Pulse Ox Last 24 Hr 97.8 F-98.9 F 112-126 16-20 117-152/73-101 96-98 GENERAL: The patient is awake, alert, and fully oriented, in no acute distress. LUNGS: Breath sounds equal, clear to auscultation bilaterally, no wheezes, no crackles, no accessory muscle use. HEART: Regular rate and rhythm, S1, S2 without murmur, rub or gallop. ABDOMEN: Soft, nontender, nondistended, normoactive bowel sounds, no guarding, no rebound, no hepatosplenomegaly, no masses. EXTREMITIES: 2+ pulses, warm, well-perfused, no edema. SKIN: Warm, dry, normal turgor, no rashes or lesions noted Laboratory Results - last 24 hr 06/30/20 06/30/20 06/30/20 11:51 11:51 11:51 WBC 9.2 RBC 4.87 Hgb 14.0 Hct 41.7 MCV 85.5 MCH 28.8 MCHC 33.7 RDW 13.6 Plt Count 329 MPV 7.8 PT with INR 11.50 INR 0.97 Sodium 142 Potassium 3.8 Chloride 112 H Carbon Dioxide 19 L Anion Gap 11 BUN 8.3 Creatinine 0.9 Est GFR (CKD-EPI)AfAm 106.68 Est GFR (CKD-EPI)NonAf 92.04 Random Glucose 99 Calcium 9.7 Phosphorus 4.6 Magnesium 2.2 Active Medications Generic Name Dose Route Start Last Admin Trade Name Freq PRN Reason Stop Dose Admin Albuterol Sulfate 2 puff 06/26/20 21:15 06/30/20 17:22 Ventolin Hfa Inhaler - IH 2 puff Q4H [facility] Administration Amoxicillin/Clavulanate Potassium 1 tab 06/29/20 17:30 06/30/20 17:22 Augmentin - 875mg Tablet PO 1 tab BID@0800,1730 [facility]NY Administration Bisacodyl 10 mg 06/26/20 18:24 Dulcolax Suppository - RC HS PRN CONSTIPATION Chlorpromazine HCl 200 mg 06/27/20 10:00 06/30/20 10:14 Thorazine - PO 200 mg DAILY [facility] Administration Clonidine 0.1 mg 06/26/20 22:00 06/30/20 10:14 Catapres - PO 0.1 mg BID [facility]NY Administration Clozapine 100 mg/ Clozapine 50 150 mg 06/26/20 22:00 06/30/20 10:14 mg PO 150 mg BID KENNY Administration Enoxaparin Sodium 40 mg 06/27/20 11:45 06/30/20 14:05 Lovenox - SQ Not Given DAILY [facility] Ferrous Gluconate 648 mg 06/26/20 22:00 06/30/20 10:14 Fergon - PO 648 mg BID [facility] Administration Gabapentin 400 mg 06/26/20 22:00 06/30/20 17:23 Neurontin - PO 400 mg QID [facility] Administration Ipratropium [place] 1 amp 06/26/20 18:24 Atrovent 0.02% Nebulizer - NEB 07/03/20 13:02 Q6H PRN Dyspnea Lactobacillus Acidophilus 1 tab 06/27/20 10:00 06/30/20 10:13 Bacid - PO 1 tab DAILY [facility] Administration Lactulose 20 gm 06/26/20 22:00 06/30/20 14:05 Cephulac (Oral Use) PO Not Given BID [facility]NY Levothyroxine Sodium 100 mcg 06/27/20 07:00 06/30/20 06:09 Synthroid - PO 100 mcg 0700 [facility] Administration Lorazepam 2 mg 06/26/20 22:00 06/30/20 18:01 Ativan - PO 2 mg QID [facility] Administration Pantoprazole Sodium 40 mg 06/27/20 10:00 06/30/20 10:13 Protonix - PO 40 mg DAILY [facility] Administration Valproate Sodium 250 mg 06/26/20 22:00 06/30/20 14:07 Depakene - PO 250 mg TID [facility]NY Administration ASSESSMENT/PLAN: Ms. Mitchell is a 19 year old female w a h/o violent twitches, autism residing at [facility], ADHD, COVID positive in february, v/p shun, hypothyroid who presented to the emergency department for wheezing, shortness of breath and an O2 saturation rate of 85%. CXR - moderate pleural effusion with consolidation/atelectasis of the left lower lobe # Acute Hypoxic Respiratory Failure secondary to ventriculo pleural shunt - CXR shows worsening Parapneumonic effusion and congestive changes - IR and neurology consulted for ELECTRONIC PUBLICATIONS SPECIALIST shunts. - will need to gather further information about the purpose of ventriculo- pleural shunt - Patients IV in foot ceased to work - switching to PO antibiotics - DC zosyn starting on augmentin 875 BID #Hx of Asthma - Continue Ipratropium Neb PRN (Will hold Albuterol neb for now given tachycardia) - No need for steroid therapy. #Autism spectrum disorder, Developmental Disorder, Behavioral Disturbance with violent outbursts, s/p ELECTRONIC PUBLICATIONS SPECIALIST Shunt, ADHD - Patient will continue to take psych medications - Chlorpromazine Typical antipsychotic - Clonidine - clozapine atypical antipsychotic - Lorazepam - anxiety - Valproic acid #Hypothyroidism - the patient will continue Levothyroxine #Persistent Tachycardia Patient unable to complete echocardiogram due to underlying mental condition. - Possible reason for growing pleural effusion CT chest for effusion gauge #DVT Px - Lovenox SQ. Visit type - Emergency Visit Emergency Visit: Yes ED Registration Date: 06/26/20 Care time: The patient presented to the Emergency Department on the above date and was hospitalized for further evaluation of their emergent condition. - New Patient This patient is new to me today: No - Critical Care Critical Care patient: No - Discharge Referral Referred to [facility] No ATTENDING PHYSICIAN STATEMENT I saw and evaluated the patient. I reviewed the resident's note and discussed the case with the resident. I agree with the resident's findings and plan as documented. SUBJECTIVE: OBJECTIVE: ASSESSMENT AND PLAN:
[2020-07-01] MEDS: ALBUTEROL SO4 HFA INHALER IH SCH ×6 (01:38→21:51)
[2020-07-01] MEDS: LEVOTHYROXINE NA 100 MCG TABLET (FP) PO SCH (06:34)
[2020-07-01] MEDS: VALPROATE SODIUM 250 MG/5 ML UNIT DOSE CUP PO SCH ×3 (06:34→21:50)
[2020-07-01] MEDS: AMOX TR/POT CLAV 875MG/125MG TABLETS (FP) PO SCH ×2 (08:54→17:58)
[2020-07-01 09:18] LABS: HEMATOCRIT 42.8 % (32.4-45.2); HEMOGLOBIN 13.9 GM/dL (10.7-15.3); MCH 27.8 pg (25.7-33.7); MCHC 32.5 g/dl (32.0-36.0); MEAN CELL VOLUME 85.7 fl (80-96); MEAN PLT VOLUME 8.1 fl (7.5-11.1); PLATELET COUNT 314 K/MM3 (134-434); RBC 4.99 M/mm3 (3.60-5.2); RDW 13.7 % (11.6-15.6)
[2020-07-01 09:35] LABS: BLOOD UREA NITROGEN 12.6 mg/dL (7-18); CALCIUM 9.9 mg/dL (8.5-10.1); MAGNESIUM 2.2 mg/dL (1.8-2.4); PHOSPHOROUS 5.3 mg/dL (2.5-4.9); POTASSIUM 4.4 mmol/L (3.5-5.1)
--- NOTE | 2020-07-01 10:44 | PN ---
Progress Note (short form) - Note Progress Note: cc: sob, wheezing hpi: unable to obtain HPI, ros due to patient not communicative. Current Medications Generic Name Dose Route Start Last Admin Trade Name Freq PRN Reason Stop Dose Admin Albuterol Sulfate 2 puff 06/26/20 21:15 07/01/20 08:58 Ventolin Hfa Inhaler - IH 2 puff Q4H [facility] Administration Amoxicillin/Clavulanate Potassium 1 tab 06/29/20 17:30 07/01/20 08:54 Augmentin - 875mg Tablet PO 1 tab BID@0800,1730 [facility] Administration Bisacodyl 10 mg 06/26/20 18:24 Dulcolax Suppository - RC HS PRN CONSTIPATION Chlorpromazine HCl 200 mg 06/27/20 10:00 06/30/20 10:14 Thorazine - PO 200 mg DAILY [facility] Administration Clonidine 0.1 mg 06/26/20 22:00 06/30/20 21:21 Catapres - PO 0.1 mg BID [facility]NY Administration Clozapine 100 mg/ Clozapine 50 150 mg 06/26/20 22:00 06/30/20 21:22 mg PO 150 mg BID [facility] Administration Enoxaparin Sodium 40 mg 06/27/20 11:45 06/30/20 14:05 Lovenox - SQ Not Given DAILY [facility] Ferrous Gluconate 648 mg 06/26/20 22:00 06/30/20 21:22 Fergon - PO 648 mg BID [facility] Administration Gabapentin 400 mg 06/26/20 22:00 06/30/20 21:22 Neurontin - PO 400 mg QID [facility] Administration Ipratropium [place] 1 amp 06/26/20 18:24 Atrovent 0.02% Nebulizer - NEB 07/03/20 13:02 Q6H PRN Dyspnea Lactobacillus Acidophilus 1 tab 06/27/20 10:00 06/30/20 10:13 Bacid - PO 1 tab DAILY [facility] Administration Lactulose 20 gm 06/26/20 22:00 06/30/20 21:21 Cephulac (Oral Use) PO 20 gm BID [facility]NY Administration Levothyroxine Sodium 100 mcg 06/27/20 07:00 07/01/20 06:34 Synthroid - PO Not Given 0700 [facility] Lorazepam 2 mg 06/26/20 22:00 06/30/20 21:20 Ativan - PO 2 mg QID [facility] Administration Pantoprazole Sodium 40 mg 06/27/20 10:00 06/30/20 10:13 Protonix - PO 40 mg DAILY [facility] Administration Valproate Sodium 250 mg 06/26/20 22:00 07/01/20 06:34 Depakene - PO Not Given TID KENNY Vital Signs Period Temp Pulse Resp BP Sys/Gaviria Pulse Ox Last 24 Hr 97.9 F-98.7 F 115-129 16-20 111-123/52-85 97-98 nad no jvd tachy, regular, s1s2 no mrg cta ant poor eff abd nt nd pos bs no jaundice diaphoresis +dp pt no carotid bruit CBC, BMP 07/01/20 08:24 07/01/20 08:24 ecg: sinus tachy, nl intervals, no ischemic changes cxr: left eff tele: sr, sinus tachy echo 06/2020 limited views patient combative. at least moderate LV systolic dysfunction suspected, not completely imaged. RV function probably normal. pleural effusion nl a/p: 19 f hx autism, evp global multimedia sales shunt, [place], wheezing. sinus tachy: -tele and ecg show sinus tachy, no arrhythmias -tsh wnl -echo read suggests ? LV systolic dysfunction on echo although incomplete due to lack of patient cooperation, incompletely imaged - reviewed images from echo, extremely limited views. unable to assess LV function due to incomplete study and unable to visualize LV endocardial borders on images obtained. pleural effusion well visualized also noted on CT chest - defer further cardiac imaging at this time as patient unlikely to be able to cooperate with studies unless under sedation -likely due to underlying acute issues, manage per primary - defer delfino blocking agent at this point sob, asthma, pleural eff, pna: -on abx, albuterol, pulm following
--- NOTE | 2020-07-01 11:00 | PN ---
Progress Note, Physician History of Present Illness: pulmonary alert,comfortable,-resp distress. pt for revision svp digital sales food & cooking shunt and drainage left ple ural effusion - Current Medication List Current Medications: Active Medications Albuterol Sulfate (Ventolin Hfa Inhaler -) 2 puff IH Q4H [facility] Last Admin: 07/01/20 08:58 Dose: 2 puff Documented by: Amoxicillin/Clavulanate Potassium (Augmentin - 875mg Tablet) 1 tab PO BID@0800,1730 [facility] Last Admin: 07/01/20 08:54 Dose: 1 tab Documented by: Bisacodyl (Dulcolax Suppository -) 10 mg RC HS PRN PRN Reason: CONSTIPATION Chlorpromazine HCl (Thorazine -) 200 mg PO DAILY [facility] Last Admin: 06/30/20 10:14 Dose: 200 mg Documented by: Clonidine (Catapres -) 0.1 mg PO BID [facility] Last Admin: 06/30/20 21:21 Dose: 0.1 mg Documented by: Clozapine 100 mg/ Clozapine 50 (mg) 150 mg PO BID [facility] Last Admin: 06/30/20 21:22 Dose: 150 mg Documented by: Enoxaparin Sodium (Lovenox -) 40 mg SQ DAILY [facility] Last Admin: 06/30/20 14:05 Dose: Not Given Documented by: Ferrous Gluconate (Fergon -) 648 mg PO BID [facility] Last Admin: 06/30/20 21:22 Dose: 648 mg Documented by: Gabapentin (Neurontin -) 400 mg PO QID [facility] Last Admin: 06/30/20 21:22 Dose: 400 mg Documented by: Ipratropium [place] (Atrovent 0.02% Nebulizer -) 1 amp NEB Q6H PRN PRN Reason: Dyspnea Stop: 07/03/20 13:02 Lactobacillus Acidophilus (Bacid -) 1 tab PO DAILY [facility] Last Admin: 06/30/20 10:13 Dose: 1 tab Documented by: Lactulose (Cephulac (Oral Use)) 20 gm PO BID [facility] Last Admin: 06/30/20 21:21 Dose: 20 gm Documented by: Levothyroxine Sodium (Synthroid -) 100 mcg PO 0700 [facility] Last Admin: 07/01/20 06:34 Dose: Not Given Documented by: Lorazepam (Ativan -) 2 mg PO QID [facility] Last Admin: 06/30/20 21:20 Dose: 2 mg Documented by: Pantoprazole Sodium (Protonix -) 40 mg PO DAILY [facility] Last Admin: 06/30/20 10:13 Dose: 40 mg Documented by: Valproate Sodium (Depakene -) 250 mg PO TID [facility] Last Admin: 07/01/20 06:34 Dose: Not Given Documented by: - Objective Vital Signs: Vital Signs Temperature 98 F 07/01/20 09:20 Pulse Rate 119 H 07/01/20 09:20 Respiratory Rate 20 07/01/20 09:20 Blood Pressure 121/69 07/01/20 09:20 O2 Sat by Pulse Oximetry (%) 97 07/01/20 09:20 Constitutional: Yes: Well Nourished, Calm Eyes: Yes: WNL HENT: Yes: WNL Neck: Yes: WNL Cardiovascular: Yes: Tachycardia, S1, S2 Respiratory: Yes: Diminished Gastrointestinal: Yes: Normal Bowel Sounds, Soft Extremities: Yes: WNL Edema: No Labs: CBC, BMP 07/01/20 08:24 07/01/20 08:24 INR, PTT INR 0.97 (0.83-1.09) 06/30/20 11:51 Problem List - Problems (1) Developmental disorder Code(s): F89 - UNSPECIFIED DISORDER OF PSYCHOLOGICAL DEVELOPMENT (2) Pneumonia Code(s): J18.9 - PNEUMONIA, UNSPECIFIED ORGANISM (3) Asthma exacerbation Code(s): J45.901 - UNSPECIFIED ASTHMA WITH (ACUTE) EXACERBATION (4) SOB (shortness of breath) Code(s): R06.02 - SHORTNESS OF BREATH (5) Behavioral disorder Code(s): MLC3754 - Assessment/Plan A/P Pneumonia large left pleural effusion tachycardia Sepsis Tachycardia Asthma Autism 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
--- NOTE | 2020-07-01 11:23 | PN ---
Progress Note, Physician History of Present Illness: stable no new issues - Current Medication List Current Medications: Active Medications Albuterol Sulfate (Ventolin Hfa Inhaler -) 2 puff IH Q4H [facility] Last Admin: 07/01/20 08:58 Dose: 2 puff Documented by: Amoxicillin/Clavulanate Potassium (Augmentin - 875mg Tablet) 1 tab PO BID@0800,1730 [facility] Last Admin: 07/01/20 08:54 Dose: 1 tab Documented by: Bisacodyl (Dulcolax Suppository -) 10 mg RC HS PRN PRN Reason: CONSTIPATION Chlorpromazine HCl (Thorazine -) 200 mg PO DAILY [facility] Last Admin: 06/30/20 10:14 Dose: 200 mg Documented by: Clonidine (Catapres -) 0.1 mg PO BID [facility] Last Admin: 06/30/20 21:21 Dose: 0.1 mg Documented by: Clozapine 100 mg/ Clozapine 50 (mg) 150 mg PO BID [facility] Last Admin: 06/30/20 21:22 Dose: 150 mg Documented by: Enoxaparin Sodium (Lovenox -) 40 mg SQ DAILY [facility] Last Admin: 06/30/20 14:05 Dose: Not Given Documented by: Ferrous Gluconate (Fergon -) 648 mg PO BID [facility] Last Admin: 06/30/20 21:22 Dose: 648 mg Documented by: Gabapentin (Neurontin -) 400 mg PO QID [facility] Last Admin: 06/30/20 21:22 Dose: 400 mg Documented by: Ipratropium [place] (Atrovent 0.02% Nebulizer -) 1 amp NEB Q6H PRN PRN Reason: Dyspnea Stop: 07/03/20 13:02 Lactobacillus Acidophilus (Bacid -) 1 tab PO DAILY [facility] Last Admin: 06/30/20 10:13 Dose: 1 tab Documented by: Lactulose (Cephulac (Oral Use)) 20 gm PO BID [facility] Last Admin: 06/30/20 21:21 Dose: 20 gm Documented by: Levothyroxine Sodium (Synthroid -) 100 mcg PO 0700 [facility] Last Admin: 07/01/20 06:34 Dose: Not Given Documented by: Lorazepam (Ativan -) 2 mg PO QID [facility] Last Admin: 06/30/20 21:20 Dose: 2 mg Documented by: Pantoprazole Sodium (Protonix -) 40 mg PO DAILY [facility] Last Admin: 06/30/20 10:13 Dose: 40 mg Documented by: Valproate Sodium (Depakene -) 250 mg PO TID [facility] Last Admin: 07/01/20 06:34 Dose: Not Given Documented by: - Objective Vital Signs: Vital Signs Temperature 98 F 07/01/20 09:20 Pulse Rate 119 H 07/01/20 09:20 Respiratory Rate 20 07/01/20 09:20 Blood Pressure 121/69 07/01/20 09:20 O2 Sat by Pulse Oximetry (%) 97 07/01/20 09:20 Constitutional: Yes: No Distress, Calm Cardiovascular: Yes: S1, S2 Respiratory: Yes: Regular, CTA Bilaterally Gastrointestinal: Yes: Normal Bowel Sounds, Soft Musculoskeletal: Yes: WNL Extremities: Yes: WNL Neurological: Yes: Alert Psychiatric: Yes: Alert Labs: CBC, BMP 07/01/20 08:24 07/01/20 08:24 INR, PTT INR 0.97 (0.83-1.09) 06/30/20 11:51 Assessment/Plan Problem List - Problems (1) ADHD Code(s): F90.9 - ATTENTION-DEFICIT HYPERACTIVITY DISORDER, UNSPECIFIED TYPE (2) Acute respiratory failure with hypoxia Code(s): J96.01 - ACUTE RESPIRATORY FAILURE WITH HYPOXIA (3) Developmental disorder Code(s): F89 - UNSPECIFIED DISORDER OF PSYCHOLOGICAL DEVELOPMENT (4) Pneumonia Code(s): J18.9 - PNEUMONIA, UNSPECIFIED ORGANISM (5) Behavioral disorder Code(s): [id number] - Assessment/Plan PNA Sepsis Acute respiratory failure Autism Developmental Delay Asthma s/p INTELLECTUAL PROPERTY MANAGER shunt plan continue oral abx rest as per the team will consider deescalating
--- NOTE | 2020-07-01 12:27 | CONSULT ---
Consult - text type - Consultation Consultation Note: NEUROSURGERY CONSULTATION Lissett Mitchell is a 19 year old female who has a past medical history notable for ADHD, Autism and developmental delay. She is a resident of [facility]. She presented to the [facility] ED with pulmonary diffic ulties and was found to be wheezing. She has a history of hydrocephalus and has been treated with a FRAME AND SCRAP CRUSHER shunt. By secondhand report, she has had 7 shunt revisions in recent years and currently has a shunt with a terminus in the Left pleural space. Patient was found to have SPO2 of 85% on room air and was given albuterol treatments. She improved to 99% in the ED and was admitted when Chest radiograph demonstrated significant opacity of the Left lung field (effusion versus pneumonia) and she has been receiving treatment for this. Chest CT suggests that the pulmonary cavity is filled with fluid which may represent either a pleural effusion or CSF collection. She is currently planned to undergo thoracentesis by Interventional Radiology. Patient is apparently at her baseline level of Neurological functioning per attendant who knows her from her other facility. She awakes to voice and is interactive. Head CT demonstrates satisfactory drainage of the lateral ventricles although outside imaging is not available for review to confirm. At this point, it is not clear why a pleural terminus was selected for her shunt, however, it appears that she is not absorbing sufficient fluid from her pleural space. I discussed her case with Dr. Benitez and discussed the possibility that CSF will continue to accumulate and that repositioning of the distal terminus to the peritoneal space might allow for prevention of this re- accumulation. At the same time, fluid could be drained from the chest cavity. human resources executive (Dr. Pina) is concerned about potential infection from a pneumonia and after discussion of the case with him, I agree that temporal separation of chest fluid withdrawal and shunt revision can be done. IR can aspirate the fluid now as planned, once it is clear that there is no infection and a better understanding is obtained about reasons why the shunt was withdrawn from the peritoneum, revision of the shunt can be considered.
[2020-07-01] MEDS: LORazepam 1 MG TABLET PO SCH ×4 (12:31→21:51)
[2020-07-01] MEDS: CLOZAPINE PO SCH ×2 (12:32→21:50)
[2020-07-01] MEDS: FERROUS GLUCONATE 324 MG TAB (FP) PO SCH ×2 (12:35→21:51)
[2020-07-01] MEDS: GABAPENTIN 400 MG CAPSULE PO SCH ×4 (12:35→21:50)
[2020-07-01] MEDS: ENOXAPARIN NA (PORCINE) 40 MG/0.4 ML DISP.SYRIN SQ SCH (12:35)
[2020-07-01] MEDS: LACTULOSE 20 GM/30 ML UDC (FOR ORAL USE ONLY) PO SCH ×2 (12:36→21:51)
[2020-07-01] MEDS: PANTOPRAZOLE 40 MG TABLET PO SCH (12:36)
[2020-07-01] MEDS: LACTOBACILLUS ACIDOPHILUS 1 TABLET PO SCH (12:36)
[2020-07-01] MEDS: chlorproMAZINE HCL 100 MG TABLET PO SCH (12:36)
[2020-07-01] MEDS: cloNIDine HCL 0.1 MG TABLET PO SCH ×2 (12:37→21:51)
--- NOTE | 2020-07-01 14:37 | PN ---
Teaching Attending Note Name of Resident: Cory Magdaleno ATTENDING PHYSICIAN STATEMENT I saw and evaluated the patient. I reviewed the resident's note and discussed the case with the resident. I agree with the resident's findings and plan as documented. SUBJECTIVE: Seen and examined at bedside. Condition unchanged. Neurosurgery, interven tional radiology, and anesthesia, are all uncomfortable performing an intervention on this patient for various reasons. She has had as many as 7 revisions of her DECORATOR STORE shunts over the last several years and there is concerned that given the possible pneumonia any intervention may risk intracranial spread. As performing a procedure here no longer appears to be possible we will moved to transfer the patient to [facility], where the rest of her revisions have been performed. OBJECTIVE: PE: Per resident note Labs/Imaging: reviewed ASSESSMENT AND PLAN: 19 year old female resident at [facility] with history of Autism, ADHD, Developmental Disorder, COVID+(02/2020), s/p DECORATOR STORE Shunt, Hypothyroidism, presents with increasing SOB/wheeze reported desaturation to 85% on RA as per EMS. CXR - moderate pleural effusion with consolidation/atelectasis of the left lower lobe #Acute Hypoxic Respiratory Failure and Sepsis secondary to likely Pneumonia with Parapneumonic effusion vs collection from DECORATOR STORE shunt CT shows large left pleural effusion with compressive atelectasis. Will require drainage. Patient has ventriculopleural shunts. Unclear if the cause of the effusion is due to the shunt or pneumonia After multiple discussions with interventional radiology, neurosurgery, and anesthesia, the decision has been made to transfer the patient to [facility] for further treatment, as this is where her DECORATOR STORE shunt revisions have been performed. -switch to augmentin per ID #Persistent Sinus Tachycardia TSH within normal limits. Patient does not tolerate echocardiogram due to underlying mental condition. May represent effect of growing pleural effusion # Hx of Asthma - no evidence of Asthma exacerbation Received Solumedrol in ED No wheeze currently. Continue Ipratropium Neb PRN (Will hold Albuterol neb for now given tachycardia) No need for steroid therapy. # History of Autism, ADHD, Developmental Disorder, Behavioral Disturbance, s/p DECORATOR STORE Shunt, ?SD Resumed home meds including Chlorpromazine, Clonidine, Clozapine, Lorazepam, Valproic Acid # Hypothyroidism - continue Levothyroxine. TSH wnl. DVT Px - Lovenox SQ. DISPO: transfer to [facility]. Pending approval
[2020-07-01] MEDS ORDERED: PT OWN MED DRAWER 7, Y5N ONE ×2 (14:44→18:30)
[2020-07-02] MEDS: ALBUTEROL SO4 HFA INHALER IH SCH ×4 (02:35→13:25)
--- NOTE | 2020-07-02 06:11 | PN ---
Progress Note, Physician Chief Complaint: tele: Sinus tach Pt sleeping Aid at bedside No acute distress - Current Medication List Current Medications: Active Medications Albuterol Sulfate (Ventolin Hfa Inhaler -) 2 puff IH Q4H [facility] Last Admin: 07/02/20 06:02 Dose: Not Given Documented by: Amoxicillin/Clavulanate Potassium (Augmentin - 875mg Tablet) 1 tab PO BID@0800,1730 [facility] Last Admin: 07/01/20 17:58 Dose: 1 tab Documented by: Bisacodyl (Dulcolax Suppository -) 10 mg RC HS PRN PRN Reason: CONSTIPATION Chlorpromazine HCl (Thorazine -) 200 mg PO DAILY [facility] Last Admin: 07/01/20 12:36 Dose: 200 mg Documented by: Clonidine (Catapres -) 0.1 mg PO BID [facility] Last Admin: 07/01/20 21:51 Dose: 0.1 mg Documented by: Clozapine 100 mg/ Clozapine 50 (mg) 150 mg PO BID [facility] Last Admin: 07/01/20 21:50 Dose: 150 mg Documented by: Enoxaparin Sodium (Lovenox -) 40 mg SQ DAILY [facility] Last Admin: 07/01/20 12:35 Dose: Not Given Documented by: Ferrous Gluconate (Fergon -) 648 mg PO BID [facility] Last Admin: 07/01/20 21:51 Dose: 648 mg Documented by: Gabapentin (Neurontin -) 400 mg PO QID [facility] Last Admin: 07/01/20 21:50 Dose: 400 mg Documented by: Lactobacillus Acidophilus (Bacid -) 1 tab PO DAILY [facility] Last Admin: 07/01/20 12:36 Dose: 1 tab Documented by: Lactulose (Cephulac (Oral Use)) 20 gm PO BID [facility] Last Admin: 07/01/20 21:51 Dose: 20 gm Documented by: Levothyroxine Sodium (Synthroid -) 100 mcg PO 0700 [facility] Last Admin: 07/01/20 06:34 Dose: Not Given Documented by: Lorazepam (Ativan -) 2 mg PO QID [facility] Last Admin: 07/01/20 21:51 Dose: 2 mg Documented by: Pantoprazole Sodium (Protonix -) 40 mg PO DAILY [facility] Last Admin: 07/01/20 12:36 Dose: 40 mg Documented by: Valproate Sodium (Depakene -) 250 mg PO TID [facility] Last Admin: 07/01/20 21:50 Dose: 250 mg Documented by: - Objective Vital Signs: Vital Signs Temperature 98.3 F 07/02/20 06:03 Pulse Rate 113 H 07/02/20 06:03 Respiratory Rate 20 07/02/20 06:03 Blood Pressure 126/100 07/02/20 06:03 O2 Sat by Pulse Oximetry (%) 98 07/01/20 22:02 Constitutional: Yes: No Distress Cardiovascular: Yes: Regular Rate and Rhythm Respiratory: Yes: CTA Bilaterally (no wheezing) Gastrointestinal: Yes: Soft (nt) Edema: No Labs: CBC, BMP 07/01/20 08:24 07/01/20 08:24 INR, PTT INR 0.97 (0.83-1.09) 06/30/20 11:51 Laboratory Tests 06/26/20 07/01/20 07/01/20 00:43 08:24 08:24 WBC 7.0 Hgb 13.9 Plt Count 314 Sodium 140 Potassium 4.4 Creatinine 1.0 Magnesium 2.2 COVID-19 (CINDY) Not detected - ....Imaging EKG: Image Reviewed (TELE: Sinus tach) Assessment/Plan echo 06/2020 limited views patient combative. at least moderate LV systolic dysfunction suspected, not completely imaged. RV function probably normal. pleural effusion nl a/p: 19 f hx autism, vp patient shunt, asthma sent from [facility] for sob, wheezing. sinus tachy: -tele and ecg show sinus tachy, no arrhythmias -tsh wnl -echo read suggests ? LV systolic dysfunction on echo although incomplete due to lack of patient cooperation, incompletely imaged - reviewed images from echo, extremely limited views. unable to assess LV function due to incomplete study and unable to visualize LV endocardial borders on images obtained. pleural effusion well visualized also noted on CT chest - defer further cardiac imaging at this time as patient unlikely to be able to cooperate with studies unless under sedation -likely due to underlying acute issues, manage per primary - defer delfino blocking agent at this point sob, asthma, pleural eff, pna: -on abx, albuterol, pulm following
[2020-07-02] MEDS: VALPROATE SODIUM 250 MG/5 ML UNIT DOSE CUP PO SCH ×2 (06:45→13:25)
[2020-07-02] MEDS: LEVOTHYROXINE NA 100 MCG TABLET (FP) PO SCH (06:45)
--- NOTE | 2020-07-02 07:45 | PN ---
Physical Exam: SUBJECTIVE: Patient seen and examined at bedside with no overnight events noted. It was noted she has had 7 revisions of her Ventriculo pleural/peritoneal shunt at [facility]. OBJECTIVE: Vital Signs Period Temp Pulse Resp BP Sys/Gaviria Pulse Ox Last 24 Hr 97.8 F-98.6 F 113-132 16-20 121-152/69-100 97-98 GENERAL: The patient is awake, alert, and fully oriented, in no acute distress. LUNGS: Breath sounds equal, clear to auscultation bilaterally, no wheezes, no crackles, no accessory muscle use. HEART: Regular rate and rhythm, S1, S2 without murmur, rub or gallop. ABDOMEN: Soft, nontender, nondistended, normoactive bowel sounds, no guarding, no rebound, no hepatosplenomegaly, no masses. EXTREMITIES: 2+ pulses, warm, well-perfused, no edema. SKIN: Warm, dry, normal turgor, no rashes or lesions noted Laboratory Results - last 24 hr 07/01/20 07/01/20 08:24 08:24 WBC 7.0 RBC 4.99 Hgb 13.9 Hct 42.8 MCV 85.7 MCH 27.8 MCHC 32.5 RDW 13.7 Plt Count 314 MPV 8.1 Sodium 140 Potassium 4.4 Chloride 109 H Carbon Dioxide 24 Anion Gap 7 L BUN 12.6 Creatinine 1.0 Est GFR (CKD-EPI)AfAm 93.92 Est GFR (CKD-EPI)NonAf 81.04 Random Glucose 88 Calcium 9.9 Phosphorus 5.3 H Magnesium 2.2 Active Medications Generic Name Dose Route Start Last Admin Trade Name Freq PRN Reason Stop Dose Admin Albuterol Sulfate 2 puff 06/26/20 21:15 07/02/20 06:02 Ventolin Hfa Inhaler - IH Not Given Q4H [facility] Amoxicillin/Clavulanate Potassium 1 tab 06/29/20 17:30 07/01/20 17:58 Augmentin - 875mg Tablet PO 1 tab BID@0800,1730 [facility] Administration Bisacodyl 10 mg 06/26/20 18:24 Dulcolax Suppository - RC HS PRN CONSTIPATION Chlorpromazine HCl 200 mg 06/27/20 10:00 07/01/20 12:36 Thorazine - PO 200 mg DAILY [facility] Administration Clonidine 0.1 mg 06/26/20 22:00 07/01/20 21:51 Catapres - PO 0.1 mg BID [facility] Administration Clozapine 100 mg/ Clozapine 50 150 mg 06/26/20 22:00 07/01/20 21:50 mg PO 150 mg BID [facility] Administration Enoxaparin Sodium 40 mg 06/27/20 11:45 07/01/20 12:35 Lovenox - SQ Not Given DAILY [facility] Ferrous Gluconate 648 mg 06/26/20 22:00 07/01/20 21:51 Fergon - PO 648 mg BID [facility] Administration Gabapentin 400 mg 06/26/20 22:00 07/01/20 21:50 Neurontin - PO 400 mg QID [facility] Administration Lactobacillus Acidophilus 1 tab 06/27/20 10:00 07/01/20 12:36 Bacid - PO 1 tab DAILY [facility] Administration Lactulose 20 gm 06/26/20 22:00 07/01/20 21:51 Cephulac (Oral Use) PO 20 gm BID [facility] Administration Levothyroxine Sodium 100 mcg 06/27/20 07:00 07/02/20 06:45 Synthroid - PO Not Given 0700 [facility] Lorazepam 2 mg 06/26/20 22:00 07/01/20 21:51 Ativan - PO 2 mg QID [facility] Administration Pantoprazole Sodium 40 mg 06/27/20 10:00 07/01/20 12:36 Protonix - PO 40 mg DAILY [facility] Administration Valproate Sodium 250 mg 06/26/20 22:00 07/02/20 06:45 Depakene - PO Not Given TID [facility] ASSESSMENT/PLAN: Ms. Mitchell is a 19 year old female w a h/o violent twitches, autism residing at [facility], ADHD, COVID positive in february, v/p shun, hypothyroid who presented to the emergency department for wheezing, shortness of breath and an O2 saturation rate of 85%. CXR - moderate pleural effusion with consolidation/atelectasis of the left lower lobe # Acute Hypoxic Respiratory Failure secondary to ventriculo pleural shunt - CXR shows worsening Parapneumonic effusion and congestive changes - IR and neurology consulted for INVESTOR RELATIONS ANALYST shunts - recommended transferring to prior neurosurgeon that worked on the case. - augmentin 875 BID #Hx of Asthma - Continue Ipratropium Neb PRN #Autism spectrum disorder, Developmental Disorder, Behavioral Disturbance with violent outbursts, s/p INVESTOR RELATIONS ANALYST Shunt, ADHD - Patient will continue to take psych medications - Chlorpromazine Typical antipsychotic - Clonidine - clozapine atypical antipsychotic - Lorazepam - anxiety - Valproic acid #Hypothyroidism - the patient will continue Levothyroxine #Persistent Tachycardia Patient unable to complete echocardiogram due to underlying mental condition. - Possible reason for growing pleural effusion #DVT Px - Lovenox SQ. Visit type - Emergency Visit Emergency Visit: Yes ED Registration Date: 06/26/20 Care time: The patient presented to the Emergency Department on the above date and was hospitalized for further evaluation of their emergent condition. - New Patient This patient is new to me today: No - Critical Care Critical Care patient: No - Discharge Referral Referred to [facility] Med P.C.: No ATTENDING PHYSICIAN STATEMENT I saw and evaluated the patient. I reviewed the resident's note and discussed the case with the resident. I agree with the resident's findings and plan as documented. SUBJECTIVE: OBJECTIVE: ASSESSMENT AND PLAN:
[2020-07-02] MEDS ORDERED: MIDAZOLAM HCL 2 MG/2 ML SINGLE DOSE VIAL ONE (09:20)
[2020-07-02] MEDS ORDERED: KETAMINE HCL 200 MG/20 ML VIAL ONE (09:20)
--- NOTE | 2020-07-02 10:18 | PN ---
Progress Note, Physician History of Present Illness: pulmonary alert,comfortable,-sob,-cp,for thoracentesis today - Current Medication List Current Medications: Active Medications Albuterol Sulfate (Ventolin Hfa Inhaler -) 2 puff IH Q4H [facility] Last Admin: 07/02/20 06:02 Dose: Not Given Documented by: Amoxicillin/Clavulanate Potassium (Augmentin - 875mg Tablet) 1 tab PO BID@0800,1730 [facility] Last Admin: 07/01/20 17:58 Dose: 1 tab Documented by: Bisacodyl (Dulcolax Suppository -) 10 mg RC HS PRN PRN Reason: CONSTIPATION Chlorpromazine HCl (Thorazine -) 200 mg PO DAILY [facility] Last Admin: 07/01/20 12:36 Dose: 200 mg Documented by: Clonidine (Catapres -) 0.1 mg PO BID [facility] Last Admin: 07/01/20 21:51 Dose: 0.1 mg Documented by: Clozapine 100 mg/ Clozapine 50 (mg) 150 mg PO BID [facility] Last Admin: 07/01/20 21:50 Dose: 150 mg Documented by: Enoxaparin Sodium (Lovenox -) 40 mg SQ DAILY [facility] Last Admin: 07/01/20 12:35 Dose: Not Given Documented by: Ferrous Gluconate (Fergon -) 648 mg PO BID [facility] Last Admin: 07/01/20 21:51 Dose: 648 mg Documented by: Gabapentin (Neurontin -) 400 mg PO QID [facility] Last Admin: 07/01/20 21:50 Dose: 400 mg Documented by: Lactobacillus Acidophilus (Bacid -) 1 tab PO DAILY [facility] Last Admin: 07/01/20 12:36 Dose: 1 tab Documented by: Lactulose (Cephulac (Oral Use)) 20 gm PO BID [facility] Last Admin: 07/01/20 21:51 Dose: 20 gm Documented by: Levothyroxine Sodium (Synthroid -) 100 mcg PO 0700 [facility] Last Admin: 07/02/20 06:45 Dose: Not Given Documented by: Lorazepam (Ativan -) 2 mg PO QID [facility] Last Admin: 07/01/20 21:51 Dose: 2 mg Documented by: Pantoprazole Sodium (Protonix -) 40 mg PO DAILY [facility] Last Admin: 07/01/20 12:36 Dose: 40 mg Documented by: Valproate Sodium (Depakene -) 250 mg PO TID [facility] Last Admin: 07/02/20 06:45 Dose: Not Given Documented by: - Objective Vital Signs: Vital Signs Temperature 98.1 F 07/02/20 10:00 Pulse Rate 117 H 07/02/20 10:00 Respiratory Rate 19 07/02/20 10:00 Blood Pressure 125/82 07/02/20 10:00 O2 Sat by Pulse Oximetry (%) 97 07/02/20 10:00 Constitutional: Yes: Well Nourished, Calm Eyes: Yes: WNL HENT: Yes: WNL Neck: Yes: WNL Cardiovascular: Yes: Tachycardia, S1, S2 Respiratory: Yes: Diminished, Other (poor inspiratory effort) Gastrointestinal: Yes: Normal Bowel Sounds, Soft Extremities: Yes: WNL Edema: No Labs: CBC, BMP Problem List - Problems (1) Developmental disorder Code(s): F89 - UNSPECIFIED DISORDER OF PSYCHOLOGICAL DEVELOPMENT (2) Pneumonia Code(s): J18.9 - PNEUMONIA, UNSPECIFIED ORGANISM (3) Asthma exacerbation Code(s): J45.901 - UNSPECIFIED ASTHMA WITH (ACUTE) EXACERBATION (4) SOB (shortness of breath) Code(s): R06.02 - SHORTNESS OF BREATH (5) Behavioral disorder Code(s): VMP4786 - Assessment/Plan A/P Pneumonia large left pleural effusion tachycardia Sepsis Tachycardia Asthma Autism STABLE CLEANER SHUNT - po antibiotics per ID - diagnostic/therapeutic thoracentesis today - revision vp analysis shunt - O2 to keep SpO2 >90% - DVT prophylaxis - Aspiration precautions DR CHOUDHURY
--- NOTE | 2020-07-02 10:42 | PN ---
Progress Note, Physician History of Present Illness: stable no new issues plan for thoracocentesis - Current Medication List Current Medications: Active Medications Albuterol Sulfate (Ventolin Hfa Inhaler -) 2 puff IH Q4H [facility] Last Admin: 07/02/20 10:39 Dose: 2 puff Documented by: Amoxicillin/Clavulanate Potassium (Augmentin - 875mg Tablet) 1 tab PO BID@0800,1730 [facility] Last Admin: 07/01/20 17:58 Dose: 1 tab Documented by: Bisacodyl (Dulcolax Suppository -) 10 mg RC HS PRN PRN Reason: CONSTIPATION Chlorpromazine HCl (Thorazine -) 200 mg PO DAILY [facility] Last Admin: 07/01/20 12:36 Dose: 200 mg Documented by: Clonidine (Catapres -) 0.1 mg PO BID [facility] Last Admin: 07/01/20 21:51 Dose: 0.1 mg Documented by: Clozapine 100 mg/ Clozapine 50 (mg) 150 mg PO BID [facility] Last Admin: 07/01/20 21:50 Dose: 150 mg Documented by: Enoxaparin Sodium (Lovenox -) 40 mg SQ DAILY [facility] Last Admin: 07/01/20 12:35 Dose: Not Given Documented by: Ferrous Gluconate (Fergon -) 648 mg PO BID [facility] Last Admin: 07/01/20 21:51 Dose: 648 mg Documented by: Gabapentin (Neurontin -) 400 mg PO QID [facility] Last Admin: 07/01/20 21:50 Dose: 400 mg Documented by: Lactobacillus Acidophilus (Bacid -) 1 tab PO DAILY [facility] Last Admin: 07/01/20 12:36 Dose: 1 tab Documented by: Lactulose (Cephulac (Oral Use)) 20 gm PO BID [facility] Last Admin: 07/01/20 21:51 Dose: 20 gm Documented by: Levothyroxine Sodium (Synthroid -) 100 mcg PO 0700 [facility] Last Admin: 07/02/20 06:45 Dose: Not Given Documented by: Lorazepam (Ativan -) 2 mg PO QID [facility] Last Admin: 07/01/20 21:51 Dose: 2 mg Documented by: Pantoprazole Sodium (Protonix -) 40 mg PO DAILY [facility] Last Admin: 07/01/20 12:36 Dose: 40 mg Documented by: Valproate Sodium (Depakene -) 250 mg PO TID [facility] Last Admin: 07/02/20 06:45 Dose: Not Given Documented by: - Objective Vital Signs: Vital Signs Temperature 98.1 F 07/02/20 10:00 Pulse Rate 117 H 07/02/20 10:00 Respiratory Rate 19 07/02/20 10:00 Blood Pressure 125/82 07/02/20 10:00 O2 Sat by Pulse Oximetry (%) 97 07/02/20 10:00 Constitutional: Yes: No Distress, Calm Cardiovascular: Yes: S1, S2 Respiratory: Yes: Regular, Poor Air Entry (left side pleural effusion) Gastrointestinal: Yes: Normal Bowel Sounds, Soft Musculoskeletal: Yes: WNL Extremities: Yes: WNL Neurological: Yes: Alert Psychiatric: Yes: Alert Labs: CBC, BMP 07/01/20 08:24 07/01/20 08:24 INR, PTT INR 0.97 (0.83-1.09) 06/30/20 11:51 Assessment/Plan Problem List - Problems (1) ADHD Code(s): F90.9 - ATTENTION-DEFICIT HYPERACTIVITY DISORDER, UNSPECIFIED TYPE (2) Acute respiratory failure with hypoxia Code(s): J96.01 - ACUTE RESPIRATORY FAILURE WITH HYPOXIA (3) Developmental disorder Code(s): F89 - UNSPECIFIED DISORDER OF PSYCHOLOGICAL DEVELOPMENT (4) Pneumonia Code(s): J18.9 - PNEUMONIA, UNSPECIFIED ORGANISM (5) Behavioral disorder Code(s): YXI8970 - Assessment/Plan PNA Sepsis Acute respiratory failure Autism Developmental Delay Asthma s/p STAY CUTTER shunt pleural effusion plan continue oral abx rest as per the team for thoracocentesis rest as per the team
[2020-07-02] MEDS ORDERED: PT OWN MED DRAWER 7, Y5N ONE ×2 (13:16→15:13)
[2020-07-02] MEDS: LORazepam 1 MG TABLET PO SCH ×2 (13:17→13:21)
[2020-07-02] MEDS: GABAPENTIN 400 MG CAPSULE PO SCH ×2 (13:18→13:20)
[2020-07-02] MEDS: AMOX TR/POT CLAV 875MG/125MG TABLETS (FP) PO SCH (13:20)
[2020-07-02] MEDS: CLOZAPINE PO SCH (13:21)
[2020-07-02] MEDS: LACTOBACILLUS ACIDOPHILUS 1 TABLET PO SCH (13:22)
[2020-07-02] MEDS: ENOXAPARIN NA (PORCINE) 40 MG/0.4 ML DISP.SYRIN SQ SCH (13:23)
[2020-07-02] MEDS: PANTOPRAZOLE 40 MG TABLET PO SCH (13:23)
[2020-07-02] MEDS: cloNIDine HCL 0.1 MG TABLET PO SCH (13:23)
[2020-07-02] MEDS: LACTULOSE 20 GM/30 ML UDC (FOR ORAL USE ONLY) PO SCH (13:24)
[2020-07-02] MEDS: FERROUS GLUCONATE 324 MG TAB (FP) PO SCH (13:24)
[2020-07-02] MEDS: chlorproMAZINE HCL 100 MG TABLET PO SCH (13:24)
--- NOTE | 2020-07-02 14:52 | PN ---
Teaching Attending Note Name of Resident: Cory Magdaleno ATTENDING PHYSICIAN STATEMENT I saw and evaluated the patient. I reviewed the resident's note and discussed the case with the resident. I agree with the resident's findings and plan as documented. SUBJECTIVE: Seen and examined at bedside prior to thoracentesis. Patient clinically un changed from previous. Per report patient underwent uncomplicated thoracentesis during which 1.3 L of fluid were removed and sent for analysis. Currently working on transferring the patient to outside facility for revision of LUNCH TRUCK DRIVER shunt. OBJECTIVE: Last Vital Signs Temp Pulse Resp BP Pulse Ox 98.1 F 117 H 19 125/82 97 07/02/20 10:00 07/02/20 10:00 07/02/20 10:00 07/02/20 10:00 07/02/20 10:00 PE: Per resident note Labs/Imaging: reviewed ASSESSMENT AND PLAN: 19 year old female resident at [facility] with history of Autism, ADHD, Developmental Disorder, COVID+(02/2020), s/p LUNCH TRUCK DRIVER Shunt, Hypothyroidism, presents with increasing SOB/wheeze reported desaturation to 85% on RA as per EMS. CXR - moderate pleural effusion with consolidation/atelectasis of the left lower lobe #Acute Hypoxic Respiratory Failure and Sepsis secondary to likely Pneumonia with Parapneumonic effusion vs collection from LUNCH TRUCK DRIVER shunt Sepsis resolved -s/p IR drainage of effusion 07/02 1300mL -cont augmentin per ID #Issue with LUNCH TRUCK DRIVER shunt has been resolved 6-7 times. Concern it is either inapropriately in the pleura or that was already in pleura and lung stopped resorbing fluid, resulting in pleural effusion -f/u labs from effusion to determine source of fluid -transfer to tertiary [facility] for LUNCH TRUCK DRIVER shunt revision -discussed with neurosurgery: pt needs higher level of care for revision #Persistent Sinus Tachycardia TSH within normal limits. Patient does not tolerate echocardiogram due to underlying mental condition. May represent effect of growing pleural effusion # Hx of Asthma - no evidence of Asthma exacerbation Received Solumedrol in ED No wheeze currently. Continue Ipratropium Neb PRN (Will hold Albuterol neb for now given tachycardia) No need for steroid therapy. # History of Autism, ADHD, Developmental Disorder, Behavioral Disturbance, s/p LUNCH TRUCK DRIVER Shunt, ?SD Resumed home meds including Chlorpromazine, Clonidine, Clozapine, Lorazepam, Valproic Acid # Hypothyroidism - continue Levothyroxine. TSH wnl. DVT Px - Lovenox SQ. DISPO: transfer to tertiary medical center for vp publisher development shunt revision. Pending approval
[2020-07-02 15:34] VITALS: BP 155/116; PULSE 131; TEMP 97.9
--- NOTE | 2020-07-02 15:44 | DS ---
Physical Exam: SUBJECTIVE: Patient seen and examined at bedside. Patient was asleep and in no acute distress. Aid reports no acute events overnight. Patient has received centesis of pleural effusion with 1300cc of resulting. OBJECTIVE: Vital Signs Period Temp Pulse Resp BP Sys/Gaviria Pulse Ox Last 24 Hr 97.8 F-98.3 F 113-132 17-20 125-152/82-100 97-98 PHYSICAL EXAM GENERAL: The patient is awake, alert, and fully oriented, in no acute distress. HEAD: Normal with no signs of trauma. EYES: PERRL, extraocular movements intact, sclera anicteric, conjunctiva clear. ENT: Ears normal, nares patent, oropharynx clear without exudates, moist mucous membranes. NECK: Trachea midline, full range of motion, supple. LUNGS: Breath sounds equal, clear to auscultation bilaterally, no wheezes, no crackles, no accessory muscle use. HEART: Regular rate and rhythm, S1, S2 without murmur, rub or gallop. ABDOMEN: Soft, nontender, nondistended, normoactive bowel sounds, no guarding, no rebound, no hepatosplenomegaly, no masses. EXTREMITIES: 2+ pulses, warm, well-perfused, no edema. NEUROLOGICAL: Cranial nerves II through XII grossly intact. Normal speech, gait not observed. PSYCH: Normal mood, normal affect. SKIN: Warm, dry, normal turgor, no rashes or lesions noted. LABS CXR: 06/28 - RAD/CHEST PA LAT Chest: Left-sided pleural effusion 2 views of the chest reveal an enlarging left pleural effusion since 06/25/2020. There are increasing congestive changes. The prominent mediastinum. Follow-up recommended. 06/29 - ABD/CT Large left pleural effusion with compressive atelectasis of the left lower lobe and to a lesser extent the left upper lobe as well as mass effect and shift of the heart and mediastinal structures towards the right. Minimal atelectatic changes in the right lung No pneumothorax is identified. There is a catheter in the left pleural cavity and left upper abdomen likely related to the presence of a left ventricular shunt seen on prior CT scan of the head dated 02/24/202006/30 - CT HEAD W/O CONT - Cranial CT without contrast Clinical information given: evaluate METAL SPRAYER PROTECTIVE COATING shunt Multiplanar imaging was performed. Intravenous contrast was not administered. In comparison to CT performed on 02/24/2020 the ventricles now demonstrate a collapsed appearance which could be on the basis of over shunting. Correlate clinically. There is persistent mild to mo derate dilatation of the trigone and temporal horn of the right lateral ventricle possibly on an ex- vacuo basis. A left parietal ventriculoperitoneal shunt tube is again seen in place. 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 There is no midline displacement. Correlation with MRI or contrast- enhanced CT may be considered. Alternatively correlate with close follow-up CT. The remainder of the exam appears unchanged. There is status post left parietal craniotomy. 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 No gross mass lesion is identified on noncontrast imaging. There is no discrete infarct within the limitations of CT. Prominent dural calcifications are again visualized along the posterior cerebral falx. 07/02 - Thoracentesis: INDICATION: left pleural effusion. Procedure: Risks and benefits of procedure were discussed with patient's mother and signed consent was obtained. Patient's back was prepped and draped in a sterile fashion. Skin infiltrated with Lidocaine. Thoracic cavity was accessed with 5 [employer] Y[employer]h system under ultrasound guidance. Findings: Ultrasound reveals left pleural fluid. 1.3L of clear yellow removed. Follow-up imaging shows minimal residual fluid. Specimens were collected and sent for appropriate laboratory testing. Impression: Status post successful thoracentesis. Lazaro Bautista M.D. 07/02 - CXR post Thoracentesis: INDICATION: left pleural effusion. Procedure: Risks and benefits of procedure were discussed with patient's mother and signed consent was obtained. Patient's back was prepped and draped in a sterile fashion. Skin infiltrated with Lidocaine. Thoracic cavity was accessed with 5 [employer] Yueh system under ultrasound guidance. Findings: Ultrasound reveals left pleural fluid. 1.3L of clear yellow removed. Follow-up imaging shows minimal residual fluid. Specimens were collected and sent for appropriate laboratory testing. Impression: Status post successful thoracentesis. Lazaro Bautista M.D. HOSPITAL COURSE: Date of Admission:06/26/20 This is a 19 y/o female from [facility] with a PMHx of Autism, ADHD, Developmental Disorder, Covid +(02/2020), s/p METAL SPRAYER PROTECTIVE COATING Shunt. Who presents to the ED for wheezing and difficulty breathing. Per ED records: Per EMS patient was noted to be wheezing by staff. En route patient's spo2 85% RA, was given a treatment with minimal relief. On admission to telemetry the patient was receiving work up for possible pneumonia. Many attempts at placement of an IV line were temporary due to difficult anatomical veins. IV lines were successful in the hand and foot. CT also showed possible etiology of pleural effusion through ventriculo pleural shunt. Ms. Mitchell had received a head CT in the past with the most recent CT revealing no change in ventricular size or acute pathology. Thoracentesis: was preformed and 1.3L of clear yellow fluid had been drained from the left pleural cavity. Subsequent chest xray reveals improved lung field visibilities and costophrenic angle visibility. The patient was accepted for transfer to [facility] neurosurgery department by Dr. Bibiana Henry for revision of the Ventriculo peritoneal and ventriculo pleural shunt. Date of Discharge: 07/02/20 Minutes to complete discharge: 40 Discharge Summary Problems reviewed: Yes Reason For Visit: EXACERBATION OF ASTHMA Current Active Problems ADHD (Chronic) Developmental disorder (Chronic) Condition: Stable - Instructions Diet, Activity, Other Instructions: YOUR VISIT You were admitted to [facility] for trouble breathing and wheezing. While you were here we evaluated you with lab work, blood work, echo cardiogram, and a chest xray. We found that your chest xray showed some fluid collection in the left lung and lab work that indicated you had a lung infection. You were also found to have an elevated heart rate. You were evaluated by specialists during your hospital course. You were treated with fluids, steroids, and antibiotics. You will need to follow up with your senior clinical data manager Dr. Mccord for further treatments after you are discharged. While you were here, you were also found to have an elevated heart rate that the drapery rod assembler says is due to your shortness of breath. On your echo you were found to have an abnormality... MEDICATIONS: Please START taking 875mg of Augmentin twice a day for 4 more days. (06/29/2020 - 07/02/2020) Continue taking all medications as prescribed FOLLOW UP: Please follow up with your Geriatric Nurse Practitioner Dr. Mccord within 1 week of discharge to follow up with your xray and lab findings. Please follow up with your Primary care provider within 1 week of discharge to go over your hospital course. Please follow up with your Information Technology Program Manager Dr. Jeromy Lisa within 1 week of discharge to go over your elevated heart rate and echo cardiogram findings. Please follow up with your Infectious disease specialist Dr. Jonah Soto within 1 week of discharge to go over your hospital course. ADDITIONAL INSTRUCTIONS: You are being discharged to [facility] - Please return to the emergency department if you are experiencing further trouble breathing, increased wheezing, increased sputum production, chest pain, vomiting, fever, chills, worsening or concerning symptoms. Referrals: Jonah Soto MD [Staff Physician] - Jeromy Lisa MD [Staff Physician] - Félix Mccord MD [Staff Physician] - Disposition: TRANSFER ACUTE CARE/OTHER HOSP - Home Medications Comprehensive Discharge Medication List: Ambulatory Orders Bisacodyl [Dulcolax] 10 mg RC HS PRN 06/26/20 Chlorpromazine [Thorazine -] 200 mg PO DAILY 06/26/20 Clonidine HCl [Clonidine HCl ER] 0.1 mg PO BID 06/26/20 Clozapine 150 mg PO BID 06/26/20 Ferrous Gluconate [Fergon -] 648 mg PO BID 06/26/20 Gabapentin 400 mg PO QID 06/26/20 LORazepam [Lorazepam] 2 mg PO QID 06/26/20 Lactobacillus Acidophilus [Acidophilus] 1 each PO DAILY 06/26/20 Lactulose 30 mg PO BID 06/26/20 Levothyroxine [Synthroid -] 100 mcg PO DAILY 06/26/20 Medroxyprogesterone Acetate [Depo-Provera] 150 mg IM Q90D 06/26/20 Omeprazole 40 mg PO DAILY 06/26/20 Valproic Acid (As Sodium Salt) [Valproic Acid] 250 mg PO TID 06/26/20 This patient is new to me today: No Emergency Visit: Yes ED Registration Date: 06/26/20 Care time: The patient presented to the Emergency Department on the above date and was hospitalized for further evaluation of their emergent condition. Critical Care patient: No - Discharge Referral Referred to [facility] Med P.C.: No ATTENDING PHYSICIAN STATEMENT I saw and evaluated the patient. I reviewed the resident's note and discussed the case with the resident. I agree with the resident's findings and plan as documented. SUBJECTIVE: OBJECTIVE: ASSESSMENT AND PLAN:
[2020-07-02 15:46] LABS: BF WBC & OTHER NUCLEATED CELLS 187 /mm3
[2020-07-02 15:47] LABS: BODY FLUID MESOTHELIAL 4 %; BODY FLUID MONOCYTE 70 %
--- NOTE | 2020-07-05 17:10 | PATH ---
Cytology Non-Gynecological Report Patient Name: ART MONTEMAYOR Med. Rec. #: [id number] /Age/Gender: 2000 (Age: 19) / F Account: [id number] Location: [facility] PEDS/ADOL Taken: 07/02/2020 Received: 07/02/2020 Reported: 07/05/2020 Physicians: Digna Olsen M.D. Specimen(s) Received PLEURAL FLUID Clinical History Pleural effusion Final Diagnosis PLEURAL FLUID, THORACENTESIS: SATISFACTORY FOR EVALUATION NEGATIVE FOR MALIGNANCY. MESOTHELIAL CELLS PRESENT. Electronically Signed Portia Prakash M.D. Gross Description Approximately 50 cc of cloudy yellow fluid received fixed in 50% alcohol. One cytofunnel prepared and Pap stained. One cellblock prepared.
[2020-07-06 14:07] LABS: BODY FLUID ALBUMIN 2.3 g/dL (Not Estab.)
== END 2020-07-02 17:02 | disposition short-term general hospital (02) | DRG 721 ==
LOC: JER 20:20 → JERBED 06-26 02:00 → J7W 06-26 07:56 → J4S 06-26 16:15
PROVIDERS: ADMIT Internal Medicine; ATTEND Internal Medicine
PROC: 0W9B30Z Drainage of Left Pleural Cavity with Drainage Device, Percutaneous Approach (ICD-10-PCS; principal; 2020-07-02)
DX: T85.730A Infection and inflammatory reaction due to ventricular intracranial (communicating) shunt, initial encounter (principal); T85.890A Other specified complication of nervous system prosthetic devices, implants and grafts, initial encounter; A41.89 Other specified sepsis; Y83.8 Other surgical procedures as the cause of abnormal reaction of the patient, or of later complication, without mention of misadventure at the time of the procedure; F89 Unspecified disorder of psychological development; F84.0 Autistic disorder; F91.8 Other conduct disorders; E03.9 Hypothyroidism, unspecified; R00.0 Tachycardia, unspecified; J45.909 Unspecified asthma, uncomplicated; F90.9 Attention-deficit hyperactivity disorder, unspecified type; E66.9 Obesity, unspecified; Z68.41 Body mass index [BMI] 40.0-44.9, adult; J90 Pleural effusion, not elsewhere classified; J96.01 Acute respiratory failure with hypoxia; H54.3 Unqualified visual loss, both eyes; Z86.19 Personal history of other infectious and parasitic diseases; J98.11 Atelectasis; E86.0 Dehydration; F91.9 Conduct disorder, unspecified
CPT/HCPCS: 36415; 70450-TC; 71045-TC-FY; 71046-TC-FY; 71250-TC; 76942; 80048; 80053; 82042; 82150; 82232; 82465; 82945; 83615; 83735; 83986; 84100; 84157; 84443; 84478; 84560; 85025; 85027; 85610; 87070; 87075; 87102; 87116; 87205; 87206; 87210; 88108; 88305-TC; 93005; 93010; 93306-TC; 99285-25; J0735; U0003

== ENCOUNTER 2021-01-01 22:22 | Emergency (ER) | payer OTHER ==
[2021-01-01 22:40] VITALS: TEMP 98.9; BMI 31.3
[2021-01-01] MEDS ORDERED: LORazepam 2 MG/ML SDV VIAL ONE ×3 (22:54→23:20)
[2021-01-01] MEDS ORDERED: HALOPERIDOL LACTATE 5 MG/ML ONE ×2 (22:54→22:58)
[2021-01-01] MEDS ORDERED: LORazepam 2 MG/ML SDV VIAL IM ONE ×3 (23:13→23:28)
[2021-01-01] MEDS ORDERED: HALOPERIDOL LACTATE 5 MG/ML IM ONE ×2 (23:13→23:30)
[2021-01-02] MEDS ORDERED: KETAMINE HCL 200 MG/20 ML VIAL ONE ×2 (00:21→05:49)
[2021-01-02] MEDS ORDERED: KETAMINE HCL 500 MG/10 ML VIAL IM ONE ×2 (00:36→05:48)
[2021-01-02] MEDS ORDERED: KETAMINE HCL 500 MG/10 ML VIAL ONE (00:57)
[2021-01-02] MEDS ORDERED: KETAMINE HCL 200 MG/20 ML VIAL IVPUSH ONE (01:07)
[2021-01-02] MEDS ORDERED: LORazepam 2 MG/ML SDV VIAL ONE (05:29)
[2021-01-02] MEDS ORDERED: LORazepam 2 MG/ML SDV VIAL IVPUSH ONE (05:30)
[2021-01-02] MEDS ORDERED: LORazepam 2 MG/ML SDV VIAL IM ONE (05:30)
[2021-01-02] MEDS ORDERED: MIDAZOLAM HCL 5 MG/1 ML Single Dose Vial IM ONE (06:00)
[2021-01-02] MEDS ORDERED: MIDAZOLAM HCL 2 MG/2 ML SINGLE DOSE VIAL ONE (06:02)
[2021-01-02 06:45] VITALS: BP 138/75; PULSE 135
== END 2021-01-02 07:35 | disposition home or self-care (01) ==
LOC: JER 22:22
PROC: 3E023GC Introduction of Other Therapeutic Substance into Muscle, Percutaneous Approach (ICD-10-PCS; principal; 2021-01-01)
PROC: 3E023NZ Introduction of Analgesics, Hypnotics, Sedatives into Muscle, Percutaneous Approach (ICD-10-PCS; 2021-01-01)
PROC: 3E033GC Introduction of Other Therapeutic Substance into Peripheral Vein, Percutaneous Approach (ICD-10-PCS; 2021-01-01)
PROC: 3E023NZ Introduction of Analgesics, Hypnotics, Sedatives into Muscle, Percutaneous Approach (ICD-10-PCS; 2021-01-01)
PROC: 3E033NZ Introduction of Analgesics, Hypnotics, Sedatives into Peripheral Vein, Percutaneous Approach (ICD-10-PCS; 2021-01-01)
DX: F91.8 Other conduct disorders (principal)
CPT/HCPCS: 70450-TC; 71250-TC; 72125-TC; 74176-TC; 99285-25

== ENCOUNTER 2021-01-02 12:49 | Emergency (ER) | payer OTHER ==
[2021-01-02] MEDS ORDERED: DOXYCYCLINE MONOHYDRATE 25 MG/5 ML SUSPENSION PO ONE (12:58)
[2021-01-02 13:05] VITALS: TEMP 98.4; BMI 35.9
[2021-01-02 17:08] VITALS: BP 124/91; PULSE 120
== END 2021-01-02 17:05 ==
LOC: JER 12:49
PROC: 3E023BZ Introduction of Anesthetic Agent into Muscle, Percutaneous Approach (ICD-10-PCS; principal; 2021-01-02)
PROC: 3E033NZ Introduction of Analgesics, Hypnotics, Sedatives into Peripheral Vein, Percutaneous Approach (ICD-10-PCS; 2021-01-02)
PROC: 3E023NZ Introduction of Analgesics, Hypnotics, Sedatives into Muscle, Percutaneous Approach (ICD-10-PCS; 2021-01-02)
DX: J18.9 Pneumonia, unspecified organism (principal); R91.8 Other nonspecific abnormal finding of lung field
CPT/HCPCS: 99285-25; C9803; U0003

== ENCOUNTER 2021-04-21 18:55 | Emergency (ER) | payer OTHER ==
[2021-04-21 19:23] VITALS: BMI 43.2
[2021-04-21] MEDS ORDERED: LORazepam 1 MG TABLET PO ONE ×3 (23:33→23:38)
[2021-04-21] MEDS ORDERED: MIDAZOLAM HCL 2 MG/2 ML SINGLE DOSE VIAL IVPUSH ONE (23:35)
[2021-04-21] MEDS ORDERED: VALPROATE SODIUM 250 MG/5 ML UNIT DOSE CUP PO ONE (23:35)
[2021-04-21] MEDS ORDERED: GABAPENTIN 400 MG CAPSULE PO ONE (23:35)
[2021-04-21] MEDS ORDERED: cloZAPine 25 MG TABLET PO ONE (23:36)
[2021-04-21] MEDS ORDERED: chlorproMAZINE HCL 100 MG TABLET PO ONE (23:41)
[2021-04-21] MEDS ORDERED: LORazepam 1 MG TABLET ONE (23:49)
[2021-04-21] MEDS ORDERED: AMOX TR/POT CLAV 500MG/125MG TABLETS (FP) PO ONE (23:49)
[2021-04-21] MEDS ORDERED: AZITHROMYCIN 250 MG TABLET PO ONE (23:50)
[2021-04-22] MEDS ORDERED: AMOX TR/POT CLAV 500MG/125MG TABLETS (FP) ONE (00:02)
[2021-04-22] MEDS ORDERED: AZITHROMYCIN 250 MG TABLET ONE (00:03)
[2021-04-22] MEDS ORDERED: KETAMINE HCL 200 MG/20 ML VIAL IM ONE (02:02)
[2021-04-22] MEDS ORDERED: KETAMINE HCL 200 MG/20 ML VIAL ONE (02:23)
[2021-04-22] MEDS ORDERED: KETAMINE HCL 500 MG/10 ML VIAL ONE (02:36)
[2021-04-22] MEDS ORDERED: KETAMINE HCL 500 MG/10 ML VIAL IM ONE (02:45)
[2021-04-22] MEDS ORDERED: chlorproMAZINE HCL 100 MG TABLET PO SCH (10:00)
[2021-04-22 14:38] VITALS: BP 121/82; PULSE 84; TEMP 97.2
[2021-04-22] MEDS ORDERED: chlorproMAZINE HCL 100 MG TABLET PO ONE (23:41)
== END 2021-04-22 13:05 | disposition home or self-care (01) ==
LOC: JER 18:55
PROC: 3E023GC Introduction of Other Therapeutic Substance into Muscle, Percutaneous Approach (ICD-10-PCS; principal; 2021-04-21)
PROC: 3E033GC Introduction of Other Therapeutic Substance into Peripheral Vein, Percutaneous Approach (ICD-10-PCS; 2021-04-21)
DX: R06.2 Wheezing (principal)
CPT/HCPCS: 71045-TC-FY; 99284-25; C9803; U0003; U0005